=== PATIENT | female | born 1955 | race Asian ===

== ENCOUNTER 2018-09-02 14:30 | Inpatient (IN) | payer MEDICARE ==
[2018-09-02] MEDS ORDERED: ZEMURON IV ONE (14:57)
[2018-09-02] MEDS ORDERED: AMIDATE IV ONE (14:57)
[2018-09-02] MEDS ORDERED: VERSED IV PRN (15:01)
[2018-09-02] MEDS ORDERED: ARTIFICIAL TEARS OPHTH OINT OU PRN (15:01)
[2018-09-02] MEDS ORDERED: NACL 0.9% 500 ML 500 ML IV ONE (15:01)
[2018-09-02] MEDS ORDERED: VASELINE LIP THERAPY TP PRN (15:01)
[2018-09-02] MEDS ORDERED: SUBLIMAZE IV PRN (15:01)
--- NOTE | 2018-09-02 15:07 | Emergency Department Report ---
ED General Adult HPI - General Chief complaint: Cardiac Arrest/CPR Stated complaint: AMS Time Seen by Provider: 09/02/18 14:48 Source: EMS (verbal report received from EMS.ems notes not available at time of chart dictation), RN notes reviewed, old records reviewed Mode of arrival: Stretcher Limitations: Altered Mental Status, Physical Limitation - History of Present Illness Initial comments: This is a 63-year-old female, who is not known to this provider previously. The patient has a history of COPD, and was admitted to this hospital last month for multifactorial respiratory failure. Please see her discharge summary. She also has a history of schizophrenia, nicotine dependence. Today, the patient is brought to the hospital by emergency medical services for possible out of hospital cardiac arrest. Patient was at a psychiatric facility, where, as per EMS, psychiatric facility staff reported that the patient may have had a "cardiac event." Apparently, she became unresponsive and hypoxic, and was tachycardic. The patient reportedly received CPR, although it is not known if she lost pulses, and her rhythm at that time was not known. EMS was contacted, and they indicated to me that the patient had a normal fingerstick, and they placed the patient on a nonrebreather. The patient reportedly had pulses in the field. Upon arrival to the emergency room, the patient is breathing spontaneously but altered. She moves 4 extremities spontaneously and to painful stimuli. She is having shallow breathing, but does have a gag reflex. Her last known well time is not explicitly known. The patient is altered, and is not able to describe exacerbating or relieving factors, qualitative nature of her symptoms, aggravation, or radiation of her symptoms. -: unknown Quality: other Consistency: other Improves with: other Worsens with: other Associated Symptoms: other - Related Data Home Medications Medication Instructions Recorded Confirmed Last Taken ALBUTEROL Inhaler(NF) [VENTOLIN 2 puff IH QID 09/02/18 09/02/18 Unknown Inhaler(NF)] Benztropine [Cogentin] 1 mg PO Q4H PRN 09/02/18 09/02/18 Unknown Dextromethorphan/Benzocaine 1 each PO Q3H PRN MDD 8 doses 09/02/18 09/02/18 Unknown [Cepacol Sorethroat-Cough Sweetie] Fluticasone/Salmeterol [Advair 1 puff IH BID 09/02/18 09/02/18 Unknown Diskus 100-50 mcg] Insulin Regular, Human [Novolin R] See Protocol SUB-Q ACHS 09/02/18 09/02/18 Unknown Ipratropium/Albuterol Sulfate 1 ampul IH Q6HR 09/02/18 09/02/18 Unknown [DUONEB *Not for PRN Use*] LORazepam [Ativan INJ] 1 mg IM Q8H PRN MDD PRN SEVERE 09/02/18 09/02/18 Unknown AGITATION LORazepam [Ativan] 1 mg PO Q8H PRN 09/02/18 09/02/18 Unknown Loperamide [Imodium] 2 mg PO Q3HR PRN 09/02/18 09/02/18 Unknown Loratadine [Claritin] 10 mg PO DAILY 09/02/18 09/02/18 Unknown Mag Hydrox/Aluminum Hyd/Simeth 30 ml PO Q2H PRN MDD 3 doses 09/02/18 09/02/18 Unknown [Antacid Liquid] Magnesium Hydroxide [Milk of 30 ml PO QDAY PRN 09/02/18 09/02/18 Unknown Magnesia] Promethazine [Phenergan] 25 mg PO Q4H PRN 09/02/18 09/02/18 Unknown cloNIDine [Catapres] 0.1 mg PO Q8H PRN MDD for BP 09/02/18 09/02/18 Unknown >160/90 lamoTRIgine [LaMICtal] 25 mg PO BID 09/02/18 09/02/18 Unknown levETIRAcetam [Keppra TAB] 1,000 mg PO QDAY 09/02/18 09/02/18 Unknown predniSONE [Deltasone] 10 mg PO QDAY 09/02/18 09/02/18 Unknown risperiDONE [RisperDAL] 3 mg PO BID 09/02/18 09/02/18 Unknown traZODone [Desyrel] 50 mg PO QHS PRN 09/02/18 09/02/18 Unknown Allergies Allergy/AdvReac Type Severity Reaction Status Date / Time epinephrine Allergy Unknown Verified 01/28/18 11:04 haloperidol [From Haldol] Allergy Unknown Verified 01/28/18 11:04 quetiapine [From Seroquel] Allergy Unknown Verified 01/28/18 11:04 ziprasidone [From Geodon] Allergy Unknown Verified 01/28/18 11:04 ED Review of Systems ROS: Stated complaint: AMS Other details as noted in HPI Comment: Unobtainable due to pts medical conditions Neurological: confusion, other (ams) ED Past Medical Hx - Past Medical History Previous Medical History?: Yes Hx Psychiatric Treatment: Yes (Schizophrenia) Hx COPD: Yes - Surgical History Past Surgical History?: Yes Hx Cholecystectomy: Yes - Social History Smoking Status: Unknown if ever smoked - Medications Home Medications: Home Medications Medication Instructions Recorded Confirmed Last Taken Type ALBUTEROL Inhaler(NF) [VENTOLIN 2 puff IH QID 09/02/18 09/02/18 Unknown History Inhaler(NF)] Benztropine [Cogentin] 1 mg PO Q4H PRN 09/02/18 09/02/18 Unknown History Dextromethorphan/Benzocaine 1 each PO Q3H PRN MDD 8 doses 09/02/18 09/02/18 Unknown History [Cepacol Sorethroat-Cough Sweetie] Fluticasone/Salmeterol [Advair 1 puff IH BID 09/02/18 09/02/18 Unknown History Diskus 100-50 mcg] Insulin Regular, Human [Novolin R] See Protocol SUB-Q ACHS 09/02/18 09/02/18 Unknown History Ipratropium/Albuterol Sulfate 1 ampul IH Q6HR 09/02/18 09/02/18 Unknown History [DUONEB *Not for PRN Use*] LORazepam [Ativan INJ] 1 mg IM Q8H PRN MDD PRN SEVERE 09/02/18 09/02/18 Unknown History AGITATION LORazepam [Ativan] 1 mg PO Q8H PRN 09/02/18 09/02/18 Unknown History Loperamide [Imodium] 2 mg PO Q3HR PRN 09/02/18 09/02/18 Unknown History Loratadine [Claritin] 10 mg PO DAILY 09/02/18 09/02/18 Unknown History Mag Hydrox/Aluminum Hyd/Simeth 30 ml PO Q2H PRN MDD 3 doses 09/02/18 09/02/18 Unknown History [Antacid Liquid] Magnesium Hydroxide [Milk of 30 ml PO QDAY PRN 09/02/18 09/02/18 Unknown History Magnesia] Promethazine [Phenergan] 25 mg PO Q4H PRN 09/02/18 09/02/18 Unknown History cloNIDine [Catapres] 0.1 mg PO Q8H PRN MDD for BP 09/02/18 09/02/18 Unknown History >160/90 lamoTRIgine [LaMICtal] 25 mg PO BID 09/02/18 09/02/18 Unknown History levETIRAcetam [Keppra TAB] 1,000 mg PO QDAY 09/02/18 09/02/18 Unknown History predniSONE [Deltasone] 10 mg PO QDAY 09/02/18 09/02/18 Unknown History risperiDONE [RisperDAL] 3 mg PO BID 09/02/18 09/02/18 Unknown History traZODone [Desyrel] 50 mg PO QHS PRN 09/02/18 09/02/18 Unknown History ED Physical Exam - General Limitations: Altered Mental Status General appearance: obtunded - Head Head exam: Present: atraumatic, normocephalic - Eye Eye exam: Present: normal appearance, PERRL - ENT ENT exam: Present: normal orophraynx, mucous membranes moist, normal external ear exam - Neck Neck exam: Present: normal inspection, full ROM. Absent: tenderness, meningismus - Respiratory Respiratory exam: Present: decreased breath sounds. Absent: wheezes, rales, rhonchi, stridor - Cardiovascular Cardiovascular Exam: Present: normal rhythm, tachycardia, normal heart sounds. Absent: systolic murmur, diastolic murmur, rubs, gallop - GI/Abdominal GI/Abdominal exam: Present: soft. Absent: distended, tenderness, guarding, rebound, rigid, pulsatile mass - Extremities Exam Extremities exam: Present: normal inspection, other (2+ pulses noted in the bilateral upper, lower extremities. Compartments soft. No long bony tenderness. The pelvis is stable.). Absent: tenderness, pedal edema, calf tenderness - Back Exam Back exam: Present: normal inspection. Absent: tenderness, CVA tenderness (R), CVA tenderness (L), paraspinal tenderness, vertebral tenderness - Neurological Exam Neurological exam: Present: altered, other (patient's gag reflex is intact. Moves 4 extremities in response to noxious stimuli. When not stimulated, patient sleeping. Detailed neurologic examination not possible secondary to altered mental status.) - Psychiatric Psychiatric exam: Present: flat affect - Skin Skin exam: Present: warm, dry, intact, normal color. Absent: rash ED Course Vital Signs 09/02/18 09/02/18 09/02/18 14:52 15:00 15:05 Temperature 97.5 F L Pulse Rate 109 H 103 H Pulse Rate [ Bilateral] Pulse Rate [ Radial] Respiratory 12 21 Rate Respiratory Rate [Bilateral ] Blood Pressure 115/62 112/69 162/82 O2 Sat by Pulse 100 100 98 Oximetry 09/02/18 09/02/18 09/02/18 15:24 15:30 15:45 Temperature Pulse Rate 141 H 109 H Pulse Rate [ Bilateral] Pulse Rate [ Radial] Respiratory 16 28 H 28 H Rate Respiratory Rate [Bilateral ] Blood Pressure 168/117 144/88 O2 Sat by Pulse 99 97 100 Oximetry 09/02/18 09/02/18 09/02/18 16:00 16:15 16:45 Temperature Pulse Rate 112 H 110 H 87 Pulse Rate [ Bilateral] Pulse Rate [ Radial] Respiratory 28 H 20 28 H Rate Respiratory Rate [Bilateral ] Blood Pressure 144/96 162/94 144/96 O2 Sat by Pulse 96 98 93 Oximetry 09/02/18 09/02/18 09/02/18 17:00 17:15 17:30 Temperature Pulse Rate 76 72 73 Pulse Rate [ Bilateral] Pulse Rate [ Radial] Respiratory 28 H 28 H 28 H Rate Respiratory Rate [Bilateral ] Blood Pressure 105/75 121/80 103/70 O2 Sat by Pulse 99 99 Oximetry 09/02/18 09/02/18 09/02/18 18:30 18:45 19:00 Temperature Pulse Rate 70 72 75 Pulse Rate [ Bilateral] Pulse Rate [ Radial] Respiratory 28 H 28 H 28 H Rate Respiratory Rate [Bilateral ] Blood Pressure 106/67 94/62 85/54 O2 Sat by Pulse 100 98 96 Oximetry 09/02/18 09/02/18 09/02/18 19:15 19:30 19:45 Temperature Pulse Rate 76 77 72 Pulse Rate [ Bilateral] Pulse Rate [ Radial] Respiratory 28 H 28 H 28 H Rate Respiratory Rate [Bilateral ] Blood Pressure 83/56 89/61 85/54 O2 Sat by Pulse 97 94 95 Oximetry 09/02/18 09/02/18 09/02/18 20:00 20:09 20:15 Temperature Pulse Rate 73 54 L 45 L Pulse Rate [ Bilateral] Pulse Rate [ Radial] Respiratory 21 22 Rate Respiratory Rate [Bilateral ] Blood Pressure 109/83 118/75 118/75 O2 Sat by Pulse 100 100 Oximetry 09/02/18 09/02/18 09/02/18 20:30 20:31 20:45 Temperature Pulse Rate 54 L 46 L 50 L Pulse Rate [ Bilateral] Pulse Rate [ Radial] Respiratory 26 H 26 H Rate Respiratory Rate [Bilateral ] Blood Pressure 118/75 132/74 130/82 O2 Sat by Pulse 100 100 100 Oximetry 09/02/18 09/02/18 09/02/18 21:01 21:09 21:15 Temperature Pulse Rate 56 L 66 Pulse Rate [ 67 Bilateral] Pulse Rate [ Radial] Respiratory 28 H 28 H Rate Respiratory 20 Rate [Bilateral ] Blood Pressure 116/70 88/51 O2 Sat by Pulse 100 99 Oximetry 09/02/18 09/02/18 09/02/18 21:30 21:45 22:00 Temperature Pulse Rate 64 63 63 Pulse Rate [ Bilateral] Pulse Rate [ Radial] Respiratory 28 H 28 H 28 H Rate Respiratory Rate [Bilateral ] Blood Pressure 94/58 116/70 85/51 O2 Sat by Pulse 99 Oximetry 09/02/18 09/02/18 09/02/18 22:15 22:30 22:45 Temperature Pulse Rate 64 63 63 Pulse Rate [ Bilateral] Pulse Rate [ Radial] Respiratory 28 H 28 H 28 H Rate Respiratory Rate [Bilateral ] Blood Pressure 81/51 80/51 86/53 O2 Sat by Pulse 99 99 100 Oximetry 09/02/18 09/02/18 09/02/18 23:00 23:15 23:30 Temperature Pulse Rate 62 63 61 Pulse Rate [ Bilateral] Pulse Rate [ Radial] Respiratory 28 H 28 H 28 H Rate Respiratory Rate [Bilateral ] Blood Pressure 84/55 84/55 91/54 O2 Sat by Pulse 99 99 99 Oximetry 09/02/18 09/03/18 09/03/18 23:45 00:00 00:09 Temperature Pulse Rate 63 64 63 Pulse Rate [ Bilateral] Pulse Rate [ Radial] Respiratory 28 H 28 H 26 H Rate Respiratory Rate [Bilateral ] Blood Pressure 86/52 85/55 103/67 O2 Sat by Pulse 99 Oximetry 09/03/18 09/03/18 09/03/18 00:15 00:20 00:27 Temperature Pulse Rate 65 64 Pulse Rate [ Bilateral] Pulse Rate [ Radial] Respiratory 28 H Rate Respiratory Rate [Bilateral ] Blood Pressure 95/63 95/62 O2 Sat by Pulse 100 100 Oximetry 09/03/18 09/03/18 09/03/18 00:29 00:30 00:45 Temperature Pulse Rate 64 64 Pulse Rate [ Bilateral] Pulse Rate [ 65 Radial] Respiratory 22 28 H 28 H Rate Respiratory Rate [Bilateral ] Blood Pressure 108/66 96/64 O2 Sat by Pulse 99 98 Oximetry 09/03/18 09/03/18 09/03/18 01:00 01:15 01:30 Temperature Pulse Rate 66 67 69 Pulse Rate [ Bilateral] Pulse Rate [ Radial] Respiratory 13 22 25 H Rate Respiratory Rate [Bilateral ] Blood Pressure 92/61 92/61 94/63 O2 Sat by Pulse 98 99 98 Oximetry 09/03/18 09/03/18 09/03/18 01:45 02:00 02:15 Temperature Pulse Rate 70 70 69 Pulse Rate [ Bilateral] Pulse Rate [ Radial] Respiratory 28 H 28 H 19 Rate Respiratory Rate [Bilateral ] Blood Pressure 93/62 92/61 95/62 O2 Sat by Pulse 98 98 97 Oximetry 09/03/18 09/03/18 09/03/18 02:30 02:45 03:00 Temperature Pulse Rate 70 69 69 Pulse Rate [ Bilateral] Pulse Rate [ Radial] Respiratory 16 18 13 Rate Respiratory Rate [Bilateral ] Blood Pressure 93/62 91/58 89/61 O2 Sat by Pulse 99 98 98 Oximetry 09/03/18 09/03/18 09/03/18 03:15 03:30 03:45 Temperature Pulse Rate 71 72 72 Pulse Rate [ Bilateral] Pulse Rate [ Radial] Respiratory 8 L 9 L 12 Rate Respiratory Rate [Bilateral ] Blood Pressure 92/60 92/58 95/61 O2 Sat by Pulse 98 100 100 Oximetry 09/03/18 09/03/18 09/03/18 04:00 04:15 04:30 Temperature Pulse Rate 77 78 80 Pulse Rate [ Bilateral] Pulse Rate [ Radial] Respiratory 23 28 H 28 H Rate Respiratory Rate [Bilateral ] Blood Pressure 94/65 91/59 78/48 O2 Sat by Pulse 99 99 99 Oximetry 09/03/18 09/03/18 09/03/18 04:45 05:00 05:15 Temperature Pulse Rate 75 64 65 Pulse Rate [ Bilateral] Pulse Rate [ Radial] Respiratory 28 H 7 L 10 L Rate Respiratory Rate [Bilateral ] Blood Pressure 77/52 101/62 79/54 O2 Sat by Pulse 98 100 100 Oximetry 09/03/18 09/03/18 09/03/18 05:31 05:45 06:00 Temperature Pulse Rate 62 51 L 52 L Pulse Rate [ Bilateral] Pulse Rate [ Radial] Respiratory 18 11 L 9 L Rate Respiratory Rate [Bilateral ] Blood Pressure 103/66 118/69 137/80 O2 Sat by Pulse 100 100 100 Oximetry 09/03/18 09/03/18 09/03/18 06:15 06:30 06:45 Temperature Pulse Rate 48 L 43 L 42 L Pulse Rate [ Bilateral] Pulse Rate [ Radial] Respiratory 17 25 H 25 H Rate Respiratory Rate [Bilateral ] Blood Pressure 138/93 147/77 145/78 O2 Sat by Pulse 100 99 99 Oximetry 09/03/18 09/03/18 09/03/18 07:00 07:15 07:30 Temperature Pulse Rate 43 L 45 L 43 L Pulse Rate [ Bilateral] Pulse Rate [ Radial] Respiratory 25 H 25 H 25 H Rate Respiratory Rate [Bilateral ] Blood Pressure 140/78 126/88 140/84 O2 Sat by Pulse 98 98 97 Oximetry 09/03/18 09/03/18 09/03/18 07:45 08:00 08:14 Temperature Pulse Rate 43 L 44 L Pulse Rate [ 41 L Bilateral] Pulse Rate [ Radial] Respiratory 25 H 25 H Rate Respiratory 25 H Rate [Bilateral ] Blood Pressure 145/82 142/85 O2 Sat by Pulse 97 98 Oximetry - Reevaluation(s) Reevaluation #1: 09/02/18 16:48 Differential diagnosis, including but not limited to: Respiratory failure, pneumonia, pulmonary embolus, hypercarbia, intracranial injury, urinary tract infection Assessment and plan: 63-year-old female with reported cardiac event, reported cardiac arrest, now altered, found to be hypercarbic, with a respiratory acidosis, with an intact gag reflex. Given altered mental status, hypercarbia, hypoxemia on initial blood gas, not suitable for BiPAP therapy, and therefore intubated for airway protection. Patient will be ventilated on a lung protective strategy. Doubt infectious etiology at this time. CT scan of the brain, cervical spine, chest for PE rule out is pending at this time. Discussed with critical care physician, Dr. Lorena Girard, who agrees with plan for admission to the intensive care unit once initial diagnostics have resulted. Reevaluation #2: 09/02/18 16:51 Elevated d-dimer is reviewed and appreciated. We will withhold systemic anticoagulation pending CT scan of the brain, as intracranial hemorrhage has not been excluded as of yet. Reevaluation #3: 09/02/18 18:41 Dr Elina Hedrick to admit Reevaluation #4: 09/02/18 19:[address] scan of the brain is negative for acute disease. CT scan of the chest shows chronic emphysematous changes. No pulmonary embolism or pneumonia i s identified. Mild hypotension noted, IV fluids ordered. Likely secondary to sedation, probable dehydration. CT cervical spine negative for acute disease. 09/03/18 18:51 - EJ/Peripheral Line Neck L Time Out Performed: Yes Indications: multiple IV sites needed Skin Cleansed in Sterile Fashion: Yes Size: 20 Dressing Placed: tape Patient Tolerated Procedure: well Neck R Time Out Performed: Yes Indications: multiple IV sites needed Skin Cleansed in Sterile Fashion: Yes Size: 18 Dressing Placed: Tegaderm Patient Tolerated Procedure: well - Intubation Time Out Performed: Yes Sedative: Etomidate Mg Given: 20 Paralytic: Rocuronium Mg Given: 100 Laryngoscope: Lisa Size: 4 ET Tube Size: 7.5 Tube Secured Depth (cm): 22 Tube Secured Location: lips Tube Placement Confirmation: visualized tube passing t, equal breath sounds bilat, confirmation by capnometr Patient Tolerated Procedure: well Intubation Complications: none Additional Comments: Patient placed on nasal cannula at 15 L/m. Receives simultaneous [id number] ventilation. Towel rolls placed underneath the shoulders to align the ear to the sternal notch. Direct laryngoscopy performed, and a 7.5 endotracheal tube is inserted with 1 attempt, with no difficulty. The patient tolerated this procedure well. ED Medical Decision Making - Lab Data Result diagrams: 09/03/18 04:51 09/03/18 04:51 Vital Signs 09/02/18 09/02/18 09/02/18 14:52 15:05 15:24 Temperature 97.5 F L Pulse Rate 109 H Respiratory 12 16 Rate Blood Pressure 115/62 162/82 O2 Sat by Pulse 100 98 99 Oximetry - EKG Data -: EKG Interpreted by Hi EKG shows normal: sinus rhythm Rate: bradycardia - EKG Data 09/02/18 16:50 This is a sinus tachycardia, 101 bpm, normal axis, motion artifact, QTC 434 ms, his EKG is not consistent with ST elevation myocardial infarction. This EKG appears to be unchanged from prior EKG from 07/10/2018. - Radiology Data Radiology results: report reviewed, image reviewed Print Report Referring Physician: ANGELA BEST Patient Name: DAPHNE SOLARES Date of : 1955 Sex: Female Report Date: 2018-09-02 Report Status: Finalized Findings [facility] [address] [place] [address] XRay Report Signed Patient: DAPHNE SOLARES MR#: [id number] : 1955 Acct:[id number] Age/Sex: 63 / F ADM Date: 09/02/18 Loc: ED Attending Dr: Ordering Physician: ANGELA BEST MD Date of Service: 09/02/18 Procedure(s): XR chest 1V ap Accession Number(s): [id number] cc: ANGELA BEST MD Fluoro Time In Minutes: AP CHEST: HISTORY: Endotracheal tube placement An endotracheal tube has been inserted which terminates 3.5 cm superior to the caryn. The lungs are hyperinflated suggesting underlying emphysema. No evidence for pneumonia, large pleural effusion or pneumothorax. Heart size and pulmonary vessels are within normal limits. IMPRESSION: Adequate endotracheal tube placement. Emphysema. Transcribed By: TTR Dictated By: HU COLON JR, MD Electronically Authenticated By: HU COLON JR, MD Signed Date/Time: 09/02/18 1521 Critical Care Time: Yes Critical care time in (mins) excluding proc time.: 60 Critical care attestation.: If time is entered above; I have spent that time in minutes in the direct care of this critically ill patient, excluding procedure time. ED Disposition Clinical Impression: Acute respiratory failure with hypoxia and hypercapnia Disposition: OP ADMIT IP TO THIS HOSP Is pt being admited?: Yes Condition: Critical
--- NOTE | 2018-09-02 15:27 | XRay Report ---
AP CHEST: HISTORY: Endotracheal tube placement An endotracheal tube has been inserted which terminates 3.5 cm superior to the caryn. The lungs are hyperinflated suggesting underlying emphysema. No evidence for pneumonia, large pleural effusion or pneumothorax. Heart size and pulmonary vessels are within normal limits. IMPRESSION: Adequate endotracheal tube placement. Emphysema.
[2018-09-02 15:39] LABS: Hematocrit 43.3 % (30.3-42.9); Hemoglobin 14.5 gm/dl (10.1-14.3); Mean Corpuscular HGB Conc 33 % (30-34); Mean Corpuscular Volume 94 fl (79-97); Platelet Count 215 K/mm3 (140-440); Red Blood Count 4.62 M/mm3 (3.65-5.03); Red Cell Distribution Width 14.4 % (13.2-15.2)
[2018-09-02] MEDS: MIDAZOLAM 100 MG in NACL 0.9% 80 ML IV SCH (15:48)
[2018-09-02 15:49] LABS: INR 0.95 (0.87-1.13)
[2018-09-02 15:50] LABS: Partial Thromboplastin Time 22.3 Sec. (24.2-36.6)
[2018-09-02 16:31] LABS: Alanine Aminotransferase 18 units/L (7-56); Albumin 4.3 g/dL (3.9-5); BUN/Creatinine Ratio 27; Blood Urea Nitrogen 19 mg/dL (7-17); Calcium 10.1 mg/dL (8.4-10.2); Hemolysis Index 12
[2018-09-02 16:34] LABS: Basophils % (Manual) 0 % (0.0-1.8); Eosinophils % (Manual) 0 % (0.0-4.3); Myelocytes # (Manual) 0.1 K/mm3; Total Cells Counted 100
[2018-09-02 16:35] LABS: Anisocytosis 1+; Poikilocytosis Few
[2018-09-02] MEDS ORDERED: ATIVAN ONE (16:35)
[2018-09-02] MEDS ORDERED: SUBLIMAZE ONE (16:35)
[2018-09-02] MEDS: fentaNYL DRIP Premix 2,000 MCG/100 ML BAG IV SCH (16:35)
[2018-09-02] MEDS ORDERED: SUBLIMAZE IV ONE (16:48)
[2018-09-02] MEDS ORDERED: ATIVAN IV ONE ×2 (16:48→16:54)
[2018-09-02 17:40] LABS: Bilirubin,Urine NEG (Negative); Blood,Urine NEG (Negative); Color,Urine Yellow (Yellow); Mucus,Urine FEW /HPF; Urobilinogen,Urine < 2.0 mg/dL (<2.0)
--- NOTE | 2018-09-02 18:52 | Cat Scan Report ---
PROCEDURE: CT HEAD/BRAIN WO CON TECHNIQUE: Computerized tomography of the head was performed without contrast material. CT DOSE LENGTH PRODUCT: 920.5 mGycm HISTORY: ams COMPARISONS: None . FINDINGS: Skull and scalp: Normal . Paranasal sinuses: Normal . Ventricles and subarachnoid spaces: Normal . Cerebrum: No evidence of hemorrhage, acute infarction or mass . Cerebellum and brainstem: No evidence of hemorrhage, acute infarction or mass . IMPRESSION: Normal Examination . This document is electronically signed by Marcello Gallegos MD., September 02 2018 06:50:06 PM ET
--- NOTE | 2018-09-02 19:01 | Cat Scan Report ---
PROCEDURE: CT ANGIO CHEST TECHNIQUE: Computerized tomographic angiography of the chest was performed after the IV injection of iodinated nonionic contrast including image processing. The image data was postprocessed using 2-di mensional multiplanar reformatted (MPR) and 3-dimensional (MIP and/or volume rendered) techniques. Au tomated exposure control, adjustment of mA and/or kV according to patient size, or iterative reconstr uction dose optimization techniques were utilized. CT DOSE LENGTH PRODUCT: 660.1 mGycm HISTORY: resp failure COMPARISONS: None . FINDINGS: Heart and pericardium: There is a small pericardial effusion maximum 1.2 cm in diameter Thoracic aorta: Normal. Pulmonary vasculature: Normal. Lymph nodes: No enlarged thoracic lymph nodes. Lungs: There are some emphysematous changes present within the lungs bilaterally primarily at the api amy. There is an ET tube present tip above the caryn. Pleural space: Small bilateral pleural effusions present. Musculoskeletal structures: No significant abnormality. Upper abdominal structures: No significant abnormality. IMPRESSION: ET tube appears in satisfactory position Small bilateral pleural effusions Pericardial effusion Pulmonary emphysematous changes This document is electronically signed by Marcello Gallegos MD., September 02 2018 06:59:23 PM ET
[2018-09-02] MEDS ORDERED: NACL 0.9% 1000 ML 2,000 ML IV ONE (19:06)
[2018-09-02] MEDS ORDERED: NACL 0.9% 1000 ML 1,000 ML IV ONE (19:06)
[2018-09-02] MEDS ORDERED: MORPHINE IV PRN (19:48)
[2018-09-02] MEDS ORDERED: REGLAN IV PRN (19:48)
[2018-09-02] MEDS ORDERED: SODIUM CHLORIDE FLUSH SYRINGE 10 ML IV PRN (19:48)
[2018-09-02] MEDS ORDERED: TYLENOL PO PRN (19:48)
[2018-09-02] MEDS ORDERED: ZOFRAN IV PRN (19:48)
--- NOTE | 2018-09-02 19:48 | History and Physical Report ---
History of Present Illness Date of examination: 09/02/18 Date of admission: 09/02/18 18:41 History of present illness: - History of Present Illness Initial comments: This is a 63-year-old female, who is not known to this provider previously. The patient has a history of COPD, and was admitted to this hospital last month for multifactorial respiratory failure. Please see her discharge summary. She also has a history of schizophrenia, nicotine dependence. Today, the patient is brought to the hospital by emergency medical services for possible out of hospital cardiac arrest. Patient was at a psychiatric facility, where, as per EMS, psychiatric facility staff reported that the patient may have had a "cardiac event." Apparently, she became unresponsive and hypoxic, and was tachycardic. The patient reportedly received CPR, although it is not known if she lost pulses, and her rhythm at that time was not known. EMS was contacted, and they indicated to me that the patient had a normal fingerstick, and they placed the patient on a nonrebreather. The patient reportedly had pulses in the field. Upon arrival to the emergency room, the patient is breathing spontaneously but altered. She moves 4 extremities spontaneously and to painful stimuli. She is having shallow breathing, but does have a gag reflex. Her last known well time is not explicitly known. The patient is altered, and is not able to describe exacerbating or relieving factors, qualitative nature of her symptoms, aggravation, or radiation of her symptoms. -: unknown Quality: other Consistency: other Improves with: other Worsens with: other Associated Symptoms: other - Related Data Home Medications Medication Instructions Recorded Confirmed Last Taken ALBUTEROL Inhaler(NF) [VENTOLIN 2 puff IH QID 09/02/18 09/02/18 Unknown Inhaler(NF)] Benztropine [Cogentin] 1 mg PO Q4H PRN 09/02/18 09/02/18 Unknown Dextromethorphan/Benzocaine 1 each PO Q3H PRN MDD 8 doses 09/02/18 09/02/18 Unknown [Cepacol Sorethroat-Cough Sweetie] Fluticasone/Salmeterol [Advair 1 puff IH BID 09/02/18 09/02/18 Unknown Diskus 100-50 mcg] Insulin Regular, Human [Novolin R] See Protocol SUB-Q ACHS 09/02/18 09/02/18 Unknown Ipratropium/Albuterol Sulfate 1 ampul IH Q6HR 09/02/18 09/02/18 Unknown [DUONEB *Not for PRN Use*] LORazepam [Ativan INJ] 1 mg IM Q8H PRN MDD PRN SEVERE 09/02/18 09/02/18 Unknown AGITATION LORazepam [Ativan] 1 mg PO Q8H PRN 09/02/18 09/02/18 Unknown Loperamide [Imodium] 2 mg PO Q3HR PRN 09/02/18 09/02/18 Unknown Loratadine [Claritin] 10 mg PO DAILY 09/02/18 09/02/18 Unknown Mag Hydrox/Aluminum Hyd/Simeth 30 ml PO Q2H PRN MDD 3 doses 09/02/18 09/02/18 Unknown [Antacid Liquid] Magnesium Hydroxide [Milk of 30 ml PO QDAY PRN 09/02/18 09/02/18 Unknown Magnesia] Promethazine [Phenergan] 25 mg PO Q4H PRN 09/02/18 09/02/18 Unknown cloNIDine [Catapres] 0.1 mg PO Q8H PRN MDD for BP 09/02/18 09/02/18 Unknown >160/90 lamoTRIgine [LaMICtal] 25 mg PO BID 09/02/18 09/02/18 Unknown levETIRAcetam [Keppra TAB] 1,000 mg PO QDAY 09/02/18 09/02/18 Unknown predniSONE [Deltasone] 10 mg PO QDAY 09/02/18 09/02/18 Unknown risperiDONE [RisperDAL] 3 mg PO BID 09/02/18 09/02/18 Unknown traZODone [Desyrel] 50 mg PO QHS PRN 09/02/18 09/02/18 Unknown Allergies Allergy/AdvReac Type Severity Reaction Status Date / Time epinephrine Allergy Unknown Verified 01/28/18 11:04 haloperidol [From Haldol] Allergy Unknown Verified 01/28/18 11:04 quetiapine [From Seroquel] Allergy Unknown Verified 01/28/18 11:04 ziprasidone [From Geodon] Allergy Unknown Verified 01/28/18 11:04 ED Review of Systems ROS: Stated complaint: AMS Other details as noted in HPI Comment: Unobtainable due to pts medical conditions Neurological: confusion, other (ams) ED Past Medical Hx - Past Medical History Previous Medical History?: Yes Hx Psychiatric Treatment: Yes (Schizophrenia) Hx COPD: Yes - Surgical History Past Surgical History?: Yes Hx Cholecystectomy: Yes - Social History Smoking Status: Unknown if ever smoked - Medications Home Medications: Home Medications Medication Instructions Recorded Confirmed Last Taken Type ALBUTEROL Inhaler(NF) [VENTOLIN 2 puff IH QID 09/02/18 09/02/18 Unknown History Inhaler(NF)] Benztropine [Cogentin] 1 mg PO Q4H PRN 09/02/18 09/02/18 Unknown History Dextromethorphan/Benzocaine 1 each PO Q3H PRN MDD 8 doses 09/02/18 09/02/18 Unknown History [Cepacol Sorethroat-Cough Sweetie] Fluticasone/Salmeterol [Advair 1 puff IH BID 09/02/18 09/02/18 Unknown History Diskus 100-50 mcg] Insulin Regular, Human [Novolin R] See Protocol SUB-Q ACHS 09/02/18 09/02/18 Unknown History Ipratropium/Albuterol Sulfate 1 ampul IH Q6HR 09/02/18 09/02/18 Unknown History [DUONEB *Not for PRN Use*] LORazepam [Ativan INJ] 1 mg IM Q8H PRN MDD PRN SEVERE 09/02/18 09/02/18 Unknown History AGITATION LORazepam [Ativan] 1 mg PO Q8H PRN 09/02/18 09/02/18 Unknown History Loperamide [Imodium] 2 mg PO Q3HR PRN 09/02/18 09/02/18 Unknown History Loratadine [Claritin] 10 mg PO DAILY 09/02/18 09/02/18 Unknown History Mag Hydrox/Aluminum Hyd/Simeth 30 ml PO Q2H PRN MDD 3 doses 09/02/18 09/02/18 Unknown History [Antacid Liquid] Magnesium Hydroxide [Milk of 30 ml PO QDAY PRN 09/02/18 09/02/18 Unknown History Magnesia] Promethazine [Phenergan] 25 mg PO Q4H PRN 09/02/18 09/02/18 Unknown History cloNIDine [Catapres] 0.1 mg PO Q8H PRN MDD for BP 09/02/18 09/02/18 Unknown History >160/90 lamoTRIgine [LaMICtal] 25 mg PO BID 09/02/18 09/02/18 Unknown History levETIRAcetam [Keppra TAB] 1,000 mg PO QDAY 09/02/18 09/02/18 Unknown History predniSONE [Deltasone] 10 mg PO QDAY 09/02/18 09/02/18 Unknown History risperiDONE [RisperDAL] 3 mg PO BID 09/02/18 09/02/18 Unknown History traZODone [Desyrel] 50 mg PO QHS PRN 09/02/18 09/02/18 Unknown History Medications and Allergies Allergies Allergy/AdvReac Type Severity Reaction Status Date / Time epinephrine Allergy Unknown Verified 01/28/18 11:04 haloperidol [From Haldol] Allergy Unknown Verified 01/28/18 11:04 quetiapine [From Seroquel] Allergy Unknown Verified 01/28/18 11:04 ziprasidone [From Geodon] Allergy Unknown Verified 01/28/18 11:04 Home Medications Medication Instructions Recorded Confirmed Last Taken Type ALBUTEROL Inhaler(NF) [VENTOLIN 2 puff IH QID 09/02/18 09/02/18 Unknown History Inhaler(NF)] Benztropine [Cogentin] 1 mg PO Q4H PRN 09/02/18 09/02/18 Unknown History Dextromethorphan/Benzocaine 1 each PO Q3H PRN MDD 8 doses 09/02/18 09/02/18 Unknown History [Cepacol Sorethroat-Cough Sweetie] Fluticasone/Salmeterol [Advair 1 puff IH BID 09/02/18 09/02/18 Unknown History Diskus 100-50 mcg] Insulin Regular, Human [Novolin R] See Protocol SUB-Q ACHS 09/02/18 09/02/18 Unknown History Ipratropium/Albuterol Sulfate 1 ampul IH Q6HR 09/02/18 09/02/18 Unknown History [DUONEB *Not for PRN Use*] LORazepam [Ativan INJ] 1 mg IM Q8H PRN MDD PRN SEVERE 09/02/18 09/02/18 Unknown History AGITATION LORazepam [Ativan] 1 mg PO Q8H PRN 09/02/18 09/02/18 Unknown History Loperamide [Imodium] 2 mg PO Q3HR PRN 09/02/18 09/02/18 Unknown History Loratadine [Claritin] 10 mg PO DAILY 09/02/18 09/02/18 Unknown History Mag Hydrox/Aluminum Hyd/Simeth 30 ml PO Q2H PRN MDD 3 doses 09/02/18 09/02/18 Unknown History [Antacid Liquid] Magnesium Hydroxide [Milk of 30 ml PO QDAY PRN 09/02/18 09/02/18 Unknown History Magnesia] Promethazine [Phenergan] 25 mg PO Q4H PRN 09/02/18 09/02/18 Unknown History cloNIDine [Catapres] 0.1 mg PO Q8H PRN MDD for BP 09/02/18 09/02/18 Unknown History >160/90 lamoTRIgine [LaMICtal] 25 mg PO BID 09/02/18 09/02/18 Unknown History levETIRAcetam [Keppra TAB] 1,000 mg PO QDAY 09/02/18 09/02/18 Unknown History predniSONE [Deltasone] 10 mg PO QDAY 09/02/18 09/02/18 Unknown History risperiDONE [RisperDAL] 3 mg PO BID 09/02/18 09/02/18 Unknown History traZODone [Desyrel] 50 mg PO QHS PRN 09/02/18 09/02/18 Unknown History Active Meds: Active Medications Fentanyl (Sublimaze) 50 mcg IV Q10MIN PRN PRN Reason: ANALGESIA Hydrophilic Ointment (Vaseline Lip Therapy) 1 applic TP Q2HR PRN PRN Reason: Dry Lips Fentanyl Citrate (Fentanyl Drip Premix) 2,000 mcg in 100 mls @ 3.629 mls/hr IV TITR VANESSA; Protocol Last Admin: 09/02/18 16:35 Dose: 1 mcg/kg/hr, 3.629 mls/hr Documented by: Midazolam HCl 100 mg/ Sodium (Chloride) 100 mls @ 2 mls/hr IV TITR VANESSA; P rotocol Last Titration: 09/02/18 16:24 Dose: 4 mg/hr, 4 mls/hr Documented by: Sodium Chloride (Nacl 0.9% 1000 Ml) 1,000 mls @ 999 mls/hr IV BOLUS ONE Stop: 09/02/18 20:06 Midazolam HCl (Versed) 2 mg IV Q10MIN PRN PRN Reason: Sedation Multi-Ingred Cream/Lotion/Oil/Oint (Artificial Tears Ophth Oint) 1 applic OU Q4HR PRN PRN Reason: Dry Eye(s) Exam - Constitutional Vitals: Temp Pulse Resp BP Pulse Ox 97.5 F L 75 28 H 85/54 96 09/02/18 14:52 09/02/18 19:00 09/02/18 19:00 09/02/18 19:00 09/02/18 19:00 Results - Labs CBC & Chem 7: 09/02/18 15:21 09/02/18 15:21 Labs: Laboratory Last Values WBC 9.4 K/mm3 (4.5-11.0) 09/02/18 15:21 RBC 4.62 M/mm3 (3.65-5.03) 09/02/18 15:21 Hgb 14.5 gm/dl (10.1-14.3) H 09/02/18 15:21 Hct 43.3 % (30.3-42.9) H 09/02/18 15:21 MCV 94 fl (79-97) 09/02/18 15:21 MCH 31 pg (28-32) 09/02/18 15:21 MCHC 33 % (30-34) 09/02/18 15:21 RDW 14.4 % (13.2-15.2) 09/02/18 15:21 Plt Count 215 K/mm3 (140-440) 09/02/18 15:21 Add Manual Diff Complete 09/02/18 15:21 Total Counted 100 09/02/18 15:21 Seg Neutrophils % Legislative Correspondent 09/02/18 15:21 Seg Neuts % (Manual) 93.0 % (40.0-70.0) H 09/02/18 15:21 0 % 09/02/18 15:21 4.0 % (13.4-35.0) L 09/02/18 15:21 Reactive Lymphs % (Man) 0 % 09/02/18 15:21 1.0 % (0.0-7.3) 09/02/18 15:21 0 % (0.0-4.3) 09/02/18 15:21 0 % (0.0-1.8) 09/02/18 15:21 1.0 % 09/02/18 15:21 1.0 % 09/02/18 15:21 0 % 09/02/18 15:21 0 % 09/02/18 15:21 Nucleated RBC % Not Reportable 09/02/18 15:21 Seg Neutrophils # Man 8.7 K/mm3 (1.8-7.7) H 09/02/18 15:21 Band Neutrophils # 0.0 K/mm3 09/02/18 15:21 0.4 K/mm3 (1.2-5.4) L 09/02/18 15:21 Abs React Lymphs (Man) 0.0 K/mm3 09/02/18 15:21 0.1 K/mm3 (0.0-0.8) 09/02/18 15:21 0.0 K/mm3 (0.0-0.4) 09/02/18 15:21 0.0 K/mm3 (0.0-0.1) 09/02/18 15:21 0.1 K/mm3 09/02/18 15:21 0.1 K/mm3 09/02/18 15:21 0.0 K/mm3 09/02/18 15:21 Blast Cells # 0.0 K/mm3 09/02/18 15:21 WBC Morphology Not Reportable 09/02/18 15:21 Hypersegmented Neuts Not Reportable 09/02/18 15:21 Hyposegmented Neuts Not Reportable 09/02/18 15:21 Hypogranular Neuts Not Reportable 09/02/18 15:21 Not Reportable 09/02/18 15:21 Not Reportable 09/02/18 15:21 Not Reportable 09/02/18 15:21 Not Reportable 09/02/18 15:21 Not Reportable 09/02/18 15:21 Not Reportable 09/02/18 15:21 Appears normal 09/02/18 15:21 Not Reportable 09/02/18 15:21 Plt Clumps, EDTA Not Reportable 09/02/18 15:21 Not Reportable 09/02/18 15:21 Not Reportable 09/02/18 15:21 Not Reportable 09/02/18 15:21 Plt Morphology Comment Not Reportable 09/02/18 15:21 RBC Morphology Not Reportable 09/02/18 15:21 Dimorphic RBCs Not Reportable 09/02/18 15:21 Not Reportable 09/02/18 15:21 Not Reportable 09/02/18 15:21 Few 09/02/18 15:21 1+ 09/02/18 15:21 Not Reportable 09/02/18 15:21 Not Reportable 09/02/18 15:21 Not Reportable 09/02/18 15:21 Not Reportable 09/02/18 15:21 Not Reportable 09/02/18 15:21 Not Reportable 09/02/18 15:21 Not Reportable 09/02/18 15:21 Not Reportable 09/02/18 15:21 Not Reportable 09/02/18 15:21 Not Reportable 09/02/18 15:21 Not Reportable 09/02/18 15:21 Not Reportable 09/02/18 15:21 Not Reportable 09/02/18 15:21 Not Reportable 09/02/18 15:21 Not Reportable 09/02/18 15:21 Acanthocytes (Spur) Not Reportable 09/02/18 15:21 Rouleaux Not Reportable 09/02/18 15:21 Not Reportable 09/02/18 15:21 Not Reportable 09/02/18 15:21 Not Reportable 09/02/18 15:21 Not Reportable 09/02/18 15:21 Hem Pathologist Commnt No 09/02/18 15:21 PT 12.4 Sec. (12.2-14.9) 09/02/18 15:21 INR 0.95 (0.87-1.13) 09/02/18 15:21 APTT 22.3 Sec. (24.2-36.6) L 09/02/18 15:21 3805.72 ng/mlDDU (0-234) H 09/02/18 15:21 POC ABG pH 7.390 (7.35-7.45) 09/02/18 15:44 POC ABG pCO2 45.7 (35-45) H 09/02/18 15:44 POC ABG pO2 92 (80-105) 09/02/18 15:44 POC ABG HCO3 27.7 (22-26 mml/L) 09/02/18 15:44 POC ABG Total CO2 29 (23-27mmol/L) 09/02/18 15:44 POC ABG O2 Sat 97 09/02/18 15:44 POC ABG Base Excess 3 ((-2) - (+3)mmol/L) 09/02/18 15:44 35 % 09/02/18 15:44 Sodium 138 mmol/L (137-145) 09/02/18 15:21 Potassium 4.8 mmol/L (3.6-5.0) 09/02/18 15:21 Chloride 98.0 mmol/L (98-107) 09/02/18 15:21 Carbon Dioxide 26 mmol/L (22-30) 09/02/18 15:21 19 mmol/L 09/02/18 15:21 BUN 19 mg/dL (7-17) H 09/02/18 15:21 0.7 mg/dL (0.7-1.2) 09/02/18 15:21 Estimated GFR > 60 ml/min 09/02/18 15:21 27 % 09/02/18 15:21 Glucose 241 mg/dL (65-100) H 09/02/18 15:21 POC Glucose 238 (70-105) H 09/02/18 14:40 Lactic Acid 1.80 mmol/L (0.7-2.0) 09/02/18 15:21 Calcium 10.1 mg/dL (8.4-10.2) 09/02/18 15:21 Magnesium 2.10 mg/dL (1.7-2.3) 09/02/18 15:21 0.20 mg/dL (0.1-1.2) 09/02/18 15:21 AST 16 units/L (5-40) 09/02/18 15:21 ALT 18 units/L (7-56) 09/02/18 15:21 96 units/L (35-129) 09/02/18 15:21 < 0.010 ng/mL (0.00-0.029) 09/02/18 17:26 6.8 g/dL (6.3-8.2) 09/02/18 15:21 4.3 g/dL (3.9-5) 09/02/18 15:21 1.7 % 09/02/18 15:21 Yellow (Yellow) 09/02/18 17:16 Clear (Clear) 09/02/18 17:16 6.0 (5.0-7.0) 09/02/18 17:16 Ur Specific [place] 1.021 (1.003-1.030) 09/02/18 17:16 30 mg/dl mg/dL (Negative) 09/02/18 17:16 Neg mg/dL (Negative) 09/02/18 17:16 Neg mg/dL (Negative) 09/02/18 17:16 Neg (Negative) 09/02/18 17:16 Neg (Negative) 09/02/18 17:16 Neg (Negative) 09/02/18 17:16 < 2.0 mg/dL (<2.0) 09/02/18 17:16 Ur Leukocyte Esterase Neg (Negative) 09/02/18 17:16 1.0 /HPF (0.0-6.0) 09/02/18 17:16 2.0 /HPF (0.0-6.0) 09/02/18 17:16 U Epithel Cells (Auto) < 1.0 /HPF (0-13.0) 09/02/18 17:16 Few /HPF 09/02/18 17:16
[2018-09-02] MEDS ORDERED: PROVENTIL IH PRN (19:53)
[2018-09-02] MEDS ORDERED: PANCREAZE DR 10,500 UNIT FEEDTUBE PRN (19:55)
[2018-09-02] MEDS ORDERED: SIMPLE SYRUP FEEDTUBE PRN ×2 (19:55)
[2018-09-02] MEDS ORDERED: SODIUM BICARBONATE FEEDTUBE PRN (19:55)
[2018-09-02] MEDS ORDERED: DESYREL PO PRN (19:57)
[2018-09-02] MEDS ORDERED: CATAPRES PO PRN (19:57)
[2018-09-02] MEDS ORDERED: PHENERGAN PO PRN (19:57)
[2018-09-02] MEDS ORDERED: COGENTIN PO PRN (19:57)
[2018-09-02] MEDS ORDERED: ATIVAN IV PRN (19:57)
--- NOTE | 2018-09-02 20:01 | Cat Scan Report ---
PROCEDURE: CT CERVICAL SPINE WO CON TECHNIQUE: Computerized tomography of the cervical spine was performed from the skull base to T1 wit hout contrast material. CT DOSE LENGTH PRODUCT: 540.8 mGycm HISTORY: ams COMPARISONS: None . FINDINGS: There is multilevel facet joint arthropathy throughout the cervical spine. There is disc space narrowing C5-C6 and C6-C7. Spinous processes are intact Vertebral bodies demonstrate normal height and alignment.. IMPRESSION: No significant abnormality . This document is electronically signed by Marcello Gallegos MD., September 02 2018 07:58:59 PM ET
[2018-09-02] MEDS: DUONEB *Not for PRN Use IH SCH (20:58)
[2018-09-02] MEDS ORDERED: DUONEB *Not for PRN Use IH ONE (20:58)
[2018-09-02] MEDS: ROCEPHIN/NS 2 GM/100 ML 2 GM/100 ML BAG IV SCH (21:20)
[2018-09-02 21:37] LABS: Prealbumin 0.193 g/L (0.200-0.400)
[2018-09-02] MEDS: CLARITIN PO SCH (21:39)
[2018-09-02] MEDS ORDERED: HumaLOG SUB-Q SCH (22:00)
[2018-09-02] MEDS: ZITHROMAX 500 MG in NACL 0.9% 250ML 250 ML IV SCH (22:16)
[2018-09-03] MEDS ORDERED: fentaNYL DRIP Premix 2,000 MCG/100 ML BAG IV ONE (03:54)
--- NOTE | 2018-09-03 04:07 | XRay Report ---
PROCEDURE: XR CHEST 1V AP TECHNIQUE: Chest radiograph single view. HISTORY: follow up respiratory failure COMPARISONS: 07/12/2018 . FINDINGS: Heart: Normal. Mediastinum/Vessels: Normal. Lungs/Pleural space: The lungs appear emphysematous. There are no infiltrates or effusions.. Bony thorax: No acute osseous abnormality. Life support devices: The ET tube appears in good position above the caryn.. IMPRESSION: Emphysematous changes. No acute infiltrates or congestion.. This document is electronically signed by Renny Nixon MD., September 03 2018 04:05:36 AM ET
[2018-09-03] MEDS: fentaNYL DRIP Premix 2,000 MCG/100 ML BAG IV SCH (04:18)
[2018-09-03] MEDS: KEPPRA PO SCH ×3 (04:20→22:27)
[2018-09-03] MEDS: SODIUM CHLORIDE FLUSH SYRINGE 10 ML IV SCH ×3 (04:21→22:27)
[2018-09-03] MEDS: MIDAZOLAM 100 MG in NACL 0.9% 80 ML IV SCH ×2 (04:35→04:38)
--- NOTE | 2018-09-03 04:42 | XRay Report ---
PROCEDURE: XR ABDOMEN 1V AP TECHNIQUE: Abdominal radiograph, single view. HISTORY: og tube placement COMPARISONS: None . FINDINGS: Bowel gas pattern: Nonobstructive . Masses or calcifications: There are surgical clips in right upper quadrant. . Bony structures: No significant abnormality . Other: The tip of the NG tube is approximately 3 cm below the GE junction in the upper stomach. Shou ld be advanced at least 5 cm for better positioning. . IMPRESSION: Tip of the NG tube in the upper stomach. It should be advanced at least 5 cm for better positioning.. This document is electronically signed by Renny Nixon MD., September 03 2018 04:40:26 AM ET
[2018-09-03] MEDS ORDERED: NACL 0.9% 1000 ML 2,000 ML ONE (04:43)
[2018-09-03] MEDS: RisperDAL PO SCH ×3 (04:51→22:26)
[2018-09-03] MEDS: LaMICtal PO SCH ×3 (04:51→22:26)
[2018-09-03] MEDS ORDERED: NACL 0.9% 1000 ML 1,000 ML IV ONE (04:52)
[2018-09-03] MEDS ORDERED: PEPCID IV ONE (04:57)
[2018-09-03] MEDS ORDERED: SOLU-Medrol ONE (04:57)
[2018-09-03] MEDS ORDERED: NACL 0.9% 1000 ML 1,000 ML IV SCH ×3 (05:00→06:00)
[2018-09-03] MEDS: SOLU-Medrol IV SCH ×3 (05:00→14:00)
[2018-09-03] MEDS: PEPCID IV SCH ×3 (05:00→22:26)
[2018-09-03 05:14] LABS: Basophils % (Auto) 0.3 % (0.0-1.8); Eosinophils % (Auto) 0.6 % (0.0-4.3); Hemoglobin 11.4 gm/dl (10.1-14.3); Lymphocytes # (Auto) 1.5 K/mm3 (1.2-5.4); Lymphocytes % (Auto) 22.1 % (13.4-35.0); Mean Corpuscular HGB Conc 33 % (30-34); Mean Corpuscular Volume 95 fl (79-97); Monocytes # (Auto) 0.9 K/mm3 (0.0-0.8); Monocytes % (Auto) 13.2 % (0.0-7.3); Platelet Count 170 K/mm3 (140-440); Red Blood Count 3.69 M/mm3 (3.65-5.03); Red Cell Distribution Width 14.8 % (13.2-15.2)
[2018-09-03] MEDS: NACL 0.9% 1000 ML 1,000 ML IV SCH (05:27)
[2018-09-03 05:38] LABS: Alanine Aminotransferase 402 units/L (7-56); Albumin 2.9 g/dL (3.9-5); BUN/Creatinine Ratio 26; Blood Urea Nitrogen 18 mg/dL (7-17); Calcium 8.4 mg/dL (8.4-10.2); Hemolysis Index 31
--- NOTE | 2018-09-03 07:01 | Consultation ---
History of Present Illness Consult date: 09/03/18 Requesting physician: JESSICA VALENTINE Reason for consult: other (Acute hypoxemic respiratory failure, acute metabolic encephalopathy, ?cardiopulmoanry arrest) History of present illness: ED PHYSICIAN NOTES. This is a 63-year-old female, who has a history of COPD, and was admitted to this hospital last month for multifactorial respiratory failure. Please see her discharge summary. She also has a history of schizophrenia, nicotine dependence. The patient was brought to the hospital by emergency medical services for possible out of hospital cardiac arrest. Patient was at a psychiatric facility, where, as per EMS, psychiatric facility staff reported that the patient may have had a "cardiac event." Apparently, she became unresponsive and hypoxic, and was tachycardic. The patient reportedly received CPR, although it is not known if she lost pulses, and her rhythm at that time was not known. EMS was contacted, and they indicated to me that the patient had a normal fingerstick, and they placed the patient on a nonrebreather. The patient reportedly had pulses in the field. Upon arrival to the emergency room, the patient was breathing spontaneously but altered. She moves 4 extremities spontaneously and to painful stimuli. She is having shallow breathing, but does have a gag reflex. Her last known well time is not explicitly known. The patient is altered, and is not able to describe exacerbating or relieving factors, qualitative nature of her symptoms, aggravation, or radiation of her symptoms. 09/02/18 16:48 Differential diagnosis, including but not limited to: Respiratory failure, pneumonia, pulmonary embolus, hypercarbia, intracranial injury, urinary tract infection Assessment and plan: 63-year-old female with reported cardiac event, reported cardiac arrest, now altered, found to be hypercarbic, with a respiratory acidosis, with an intact gag reflex. Given altered mental status, hypercarbia, hypoxemia on initial blood gas, not suitable for BiPAP therapy, and therefore intubated for airway protection. Patient will be ventilated on a lung protective strategy. Doubt infectious etiology at this time. CT scan of the brain, cervical spine, chest for PE rule out is pending at this time. I have been consulted for critical care . At the time of my evaluation the patient was orally intubated, sedated and unable to give me any history. She was seen and examined. Vitals, labs, medications, chart and imaging were reviewed. Discussed with RT/RN and ED physician Medications and Allergies Allergies Allergy/AdvReac Type Severity Reaction Status Date / Time epinephrine Allergy Unknown Verified 01/28/18 11:04 haloperidol [From Haldol] Allergy Unknown Verified 01/28/18 11:04 quetiapine [From Seroquel] Allergy Unknown Verified 01/28/18 11:04 ziprasidone [From Geodon] Allergy Unknown Verified 01/28/18 11:04 Home Medications Medication Instructions Recorded Confirmed Last Taken Type ALBUTEROL Inhaler(NF) [VENTOLIN 2 puff IH QID 09/02/18 09/02/18 Unknown History Inhaler(NF)] Benztropine [Cogentin] 1 mg PO Q4H PRN 09/02/18 09/02/18 Unknown History Dextromethorphan/Benzocaine 1 each PO Q3H PRN MDD 8 doses 09/02/18 09/02/18 Unknown History [Cepacol Sorethroat-Cough Sweetie] Fluticasone/Salmeterol [Advair 1 puff IH BID 09/02/18 09/02/18 Unknown History Diskus 100-50 mcg] Insulin Regular, Human [Novolin R] See Protocol SUB-Q ACHS 09/02/18 09/02/18 Unknown History Ipratropium/Albuterol Sulfate 1 ampul IH Q6HR 09/02/18 09/02/18 Unknown History [DUONEB *Not for PRN Use*] LORazepam [Ativan INJ] 1 mg IM Q8H PRN MDD PRN SEVERE 09/02/18 09/02/18 Unknown History AGITATION LORazepam [Ativan] 1 mg PO Q8H PRN 09/02/18 09/02/18 Unknown History Loperamide [Imodium] 2 mg PO Q3HR PRN 09/02/18 09/02/18 Unknown History Loratadine [Claritin] 10 mg PO DAILY 09/02/18 09/02/18 Unknown History Mag Hydrox/Aluminum Hyd/Simeth 30 ml PO Q2H PRN MDD 3 doses 09/02/18 09/02/18 Unknown History [Antacid Liquid] Magnesium Hydroxide [Milk of 30 ml PO QDAY PRN 09/02/18 09/02/18 Unknown History Magnesia] Promethazine [Phenergan] 25 mg PO Q4H PRN 09/02/18 09/02/18 Unknown History cloNIDine [Catapres] 0.1 mg PO Q8H PRN MDD for BP 09/02/18 09/02/18 Unknown History >160/90 lamoTRIgine [LaMICtal] 25 mg PO BID 09/02/18 09/02/18 Unknown History levETIRAcetam [Keppra TAB] 1,000 mg PO QDAY 09/02/18 09/02/18 Unknown History predniSONE [Deltasone] 10 mg PO QDAY 09/02/18 09/02/18 Unknown History risperiDONE [RisperDAL] 3 mg PO BID 09/02/18 09/02/18 Unknown History traZODone [Desyrel] 50 mg PO QHS PRN 09/02/18 09/02/18 Unknown History Active Meds: Active Medications Acetaminophen (Tylenol) 650 mg PO Q4H PRN PRN Reason: Pain MILD(1-3)/Fever >100.5/RODRIGUEZ Albuterol (Proventil) 2.5 mg IH Q4HRT PRN PRN Reason: Shortness Of Breath Albuterol/Ipratropium (Duoneb *Not For Prn Use*) 1 ampul IH QIDRT [facility] Last Admin: 09/02/18 20:58 Dose: 1 ampul Documented by: Lipase/Protease/Amylase (Pancrejos[address]ito Dr 10,500 Unit) 1 each FEEDTUBE PRN PRN PRN Reason: For Clogged Feeding Tube Benztropine Mesylate (Cogentin) 1 mg PO Q4H PRN PRN Reason: Extrapyramidal Effects Clonidine HCl (Catapres) 0.1 mg PO Q8H PRN PRN Reason: Blood Pressure Famotidine (Pepcid) 20 mg IV BID [facility] Last Admin: 09/03/18 05:00 Dose: 20 mg Documented by: Fentanyl (Sublimaze) 50 mcg IV Q10MIN PRN PRN Reason: ANALGESIA Hydrophilic Ointment (Vaseline Lip Therapy) 1 applic TP Q2HR PRN PRN Reason: Dry Lips Fentanyl Citrate (Fentanyl Drip Premix) 2,000 mcg in 100 mls @ 3.629 mls/hr IV TITR [facility]; Protocol Last Admin: 09/03/18 04:18 Dose: 2 mcg/kg/hr, 7.258 mls/hr Documented by: Midazolam HCl 100 mg/ Sodium (Chloride) 100 mls @ 2 mls/hr IV TITR [facility]; Protocol Last Admin: 09/03/18 04:38 Dose: 3 mg/hr, 3 mls/hr Documented by: Sodium Chloride (Nacl 0.9% 1000 Ml) 1,000 mls @ 75 mls/hr IV DIRECT [facility] Last Admin: 09/03/18 05:27 Dose: 75 mls/hr Documented by: Azithromycin 500 mg/ Sodium (Chloride) 250 mls @ 250 mls/hr IV Q24H [facility] Last Admin: 09/02/18 22:16 Dose: 250 mls/hr Documented by: Ceftriaxone Sodium (Rocephin/Ns 2 Gm/100 Ml) 2 gm in 100 mls @ 200 mls/hr IV Q24H [facility]; Protocol Last Admin: 09/02/18 21:20 Dose: 200 mls/hr Documented by: Sodium Chloride (Nacl 0.9% 1000 Ml) 1,000 mls @ 75 mls/hr IV DIRECT [facility] Sodium Chloride (Nacl 0.9% 1000 Ml) 1,000 mls @ 0 mls/hr IV ONCE [facility] Stop: 09/04/18 06:01 Last Admin: 09/03/18 05:42 Dose: 999 mls/hr Documented by: Insulin Human Lispro (Humalog) 0 unit SUB-Q ACHS [facility]; Protocol Last Admin: 09/03/18 04:25 Dose: Not Given Documented by: Lamotrigine (Lamictal) 25 mg PO BID [facility] Last Admin: 09/03/18 04:51 Dose: 25 mg Documented by: Levetiracetam (Keppra) 750 mg PO Q12HR [facility] Last Admin: 09/03/18 04:20 Dose: Not Given Documented by: Loratadine (Claritin) 10 mg PO DAILY [facility] Last Admin: 09/02/18 21:39 Dose: Not Given Documented by: Lorazepam (Ativan) 1 mg IV Q8H PRN PRN Reason: Agitation Methylprednisolone Sodium Succinate (Solu-Medrol) 80 mg IV Q8HR [facility] Last Admin: 09/03/18 06:25 Dose: Not Given Documented by: Metoclopramide HCl (Reglan) 10 mg IV Q6H PRN PRN Reason: Nausea And Vomiting Midazolam HCl (Versed) 2 mg IV Q10MIN PRN PRN Reason: Sedation Morphine Sulfate (Morphine) 2 mg IV Q4H PRN PRN Reason: Pain, Moderate (4-6) Multi-Ingred Cream/Lotion/Oil/Oint (Artificial Tears Ophth Oint) 1 applic OU Q4HR PRN PRN Reason: Dry Eye(s) Ondansetron HCl (Zofran) 4 mg IV Q8H PRN PRN Reason: Nausea And Vomiting Promethazine HCl (Phenergan) 25 mg PO Q4H PRN PRN Reason: Nausea And Vomiting Risperidone (Risperdal) 3 mg PO BID [facility] Last Admin: 09/03/18 04:51 Dose: 3 mg Documented by: Simple Syrup (Simple Syrup) 15 ml FEEDTUBE PRN PRN PRN Reason: Hypoglycemia Simple Syrup (Simple Syrup) 30 ml FEEDTUBE PRN PRN PRN Reason: Hypoglycemia Sodium Bicarbonate (Sodium Bicarbonate) 325 mg FEEDTUBE PRN PRN PRN Reason: For Clogged Feeding Tube Sodium Chloride (Sodium Chloride Flush Syringe 10 Ml) 10 ml IV BID [facility] Last Admin: 09/03/18 04:21 Dose: 10 ml Documented by: Sodium Chloride (Sodium Chloride Flush Syringe 10 Ml) 10 ml IV PRN PRN PRN Reason: LINE FLUSH Trazodone HCl (Desyrel) 50 mg PO QHS PRN PRN Reason: Sleep Review of Systems ROS unobtainable: due to endotracheal tube, due to mental status Physical Examination Vital signs: Vital Signs Temp Pulse Resp BP Pulse Ox 97.5 F L 109 H 12 115/62 100 09/02/18 14:52 09/02/18 14:52 09/02/18 14:52 09/02/18 14:52 09/02/18 14:52 General appearance: no acute distress, other (orally intubated, ETT 7.5 at 22 cm at the lip. No patient ventilator dyssynchrony, Atraumatic, normocephalic) Eyes: non-icteric, other (SHAWN) ENT: oropharynx moist Neck: supple, no lymphadenopathy, no JVD Effort: normal Ascultation: Bilateral: diminished breath sounds, rhonchi Cardiovascular: regular rate and rhythm (with episodes of bradycardia), other (S1,S2, no murmurs, gallops or rubs) Gastrointestinal: normoactive bowel sounds, hypoactive bowel sounds, non-tender, non-distended, other (Bowel sounds in all 4 quadrants) Integumentary: normal Extremities: no cyanosis, no edema, pink and warm, pulses normal, no ischemia or petechiae unable to assess, other (withdraws to pain, all 4 extremities) other (unable to assess) Results - Laboratory Findings CBC and BMP: 09/03/18 04:51 09/03/18 04:51 ABG POC ABG pH 7.378 (7.35-7.45) 09/03/18 05:34 POC ABG pCO2 33.0 (35-45) L 09/03/18 05:34 POC ABG pO2 90 (80-105) 09/03/18 05:34 POC ABG HCO3 19.5 (22-26 mml/L) 09/03/18 05:34 POC ABG Total CO2 20 (23-27mmol/L) 09/03/18 05:34 POC ABG O2 Sat 97 09/03/18 05:34 PT/INR, D-dimer PT 12.4 Sec. (12.2-14.9) 09/02/18 15:21 INR 0.95 (0.87-1.13) 09/02/18 15:21 3805.72 ng/mlDDU (0-234) H 09/02/18 15:21 Abnormal lab findings: Abnormal Labs 09/02/18 09/02/18 09/02/18 14:40 14:53 15:21 Hgb Hct [place] % (Auto) [place] # Seg Neuts % (Manual) Lymphocytes % (Manual) Seg Neutrophils # Man Lymphocytes # (Manual) APTT D-Dimer POC ABG pH 7.259 L POC ABG pCO2 67.4 H POC ABG pO2 67 L Chloride Carbon Dioxide BUN 19 H Glucose 241 H POC Glucose 238 H Phosphorus Magnesium AST ALT Total Protein Albumin Prealbumin 09/02/18 09/02/18 09/02/18 15:21 15:21 15:44 Hgb 14.5 H Hct 43.3 H [place] % (Auto) [place] # Seg Neuts % (Manual) 93.0 H Lymphocytes % (Manual) 4.0 L Seg Neutrophils # Man 8.7 H Lymphocytes # (Manual) 0.4 L APTT 22.3 L D-Dimer 3805.72 H POC ABG pH POC ABG pCO2 45.7 H POC ABG pO2 Chloride Carbon Dioxide BUN Glucose POC Glucose Phosphorus Magnesium AST ALT Total Protein Albumin Prealbumin 09/02/18 09/03/18 09/03/18 20:34 04:30 04:51 Hgb Hct [place] % (Auto) 13.2 H [place] # 0.9 H Seg Neuts % (Manual) Lymphocytes % (Manual) Seg Neutrophils # Man Lymphocytes # (Manual) APTT D-Dimer POC ABG pH POC ABG pCO2 POC ABG pO2 Chloride Carbon Dioxide BUN Glucose POC Glucose 135 H Phosphorus 2.30 L Magnesium 1.60 L AST ALT Total Protein Albumin Prealbumin 0.193 L 09/03/18 09/03/18 04:51 05:34 Hgb Hct [place] % (Auto) [place] # Seg Neuts % (Manual) Lymphocytes % (Manual) Seg Neutrophils # Man Lymphocytes # (Manual) APTT D-Dimer POC ABG pH POC ABG pCO2 33.0 L POC ABG pO2 Chloride 109.0 H Carbon Dioxide 21 L BUN 18 H Glucose POC Glucose Phosphorus Magnesium AST 756 H ALT 402 H Total Protein 4.9 L D Albumin 2.9 L Prealbumin - Diagnostic Findings Chest x-ray: image reviewed (Hyperinflated, ETT in position) CT scan - chest: image reviewed (No acute pulmoanry emboli) Assessment and Plan Assessment and Plan -s/p ? Cardiopulmonary arrest with ROSC -Acute hypoxemic hypercapnic respiratory failure on MVS -AE-COPD -Acute metabolic-toxic encephalopathy -Tobacco use disorder -Schizophrenia -VAP bundle addressed -Lung protective strategies -Serial CXR and ABG -Supplemental oxygen to keep O2 sats 88-90% -Restrictive oxygen therapy -Bronchodilators -Chronic home medications for COPD -Short course of steroids -Accuchecks with glycemic control. Target blood glucose <180mg/dL -Agitation management -Titrate sedation to RAAS 0 to -1 -Prevention of delirium, maintenance of sleep-wake cycle -Empiric antibiotic therapy for HAP -Will de-escalate therapy based on microbiology/BETHANY/Cultures -VTE and Stress ulcer prophylaxis -Nicotine withdrawal precautions -Smoking cessation counselling CONDITION: CRITICAL PROGNOSIS: GUARDED CODE STATUS: FULL CODE Will hold sedation this morning, and re-evaluate the appropriateness for liberation from mechanical ventilatory support. Discussed extensively with RT and RN at the bedside, in the ED The high probability of a clinically significant, sudden or life-threatening deterioration of the [respiratory, cardiovascular neurology] system(s) required my full and direct attention, intervention and personal management. The aggregate critical care time was [45 ] minutes without overlap. Time includes spent on; [x] Data Review and interpretation [x] Patient assessment and monitoring of vital signs [x] Documentation [x] Medication orders and management
--- NOTE | 2018-09-03 07:16 | Event Note ---
Date: 09/02/18 See H/p in reports Acute resp failure COPD exacerbation
--- NOTE | 2018-09-03 07:31 | Progress Note ---
Assessment and Plan - Patient Problems (1) Acute respiratory failure with hypoxia and hypercapnia Current Visit: Yes Status: Acute Plan to address problem: Improved Extubated Cont Duonebs IV Solumedrol IV Abx (2) COPD with acute exacerbation Current Visit: Yes Status: Acute Plan to address problem: COnt Duoebs IV solumedrol andIV abx (3) HTN (hypertension) Current Visit: Yes Status: Chronic Qualifiers: Hypertension type: essential hypertension Qualified Code(s): I10 - Essential (primary) hypertension Plan to address problem: COnt antihypertensives (4) Seizure disorder Current Visit: Yes Status: Chronic Plan to address problem: Cont Keppra and Lamictal (5) Depression Current Visit: Yes Status: Chronic Qualifiers: Depression Type: unspecified Qualified Code(s): F32.9 - Major depressive disorder, single episode, unspecified Plan to address problem: Cont Trazodone and Risperidone (6) IDDM (insulin dependent diabetes mellitus) Current Visit: Yes Status: Chronic Plan to address problem: Cont Insulin a70/30 and coverage (7) Nicotine dependence Current Visit: Yes Status: Chronic Qualifiers: Nicotine product type: cigarettes Plan to address problem: Counseled about smoking cessation for 10 minutes Nicoderm patch initiated (8) DVT prophylaxis Current Visit: No Status: Acute Plan to address problem: On Lovenox and GI prophylaxis Subjective Date of service: 09/03/18 Principal diagnosis: Acute resp failure Interval history: Patient extubated today.Post extubation---Doing well.Alert and oriented.No fever or chills. Objective - Constitutional Vitals: Vital Signs - 12hr 09/02/18 09/02/18 09/02/18 19:45 20:00 20:09 Pulse Rate 72 73 54 L Pulse Rate [ Bilateral] Pulse Rate [ Radial] Respiratory 28 H 21 Rate Respiratory Rate [Bilateral ] Blood Pressure 85/54 109/83 118/75 O2 Sat by Pulse 95 100 Oximetry 09/02/18 09/02/18 09/02/18 20:15 20:30 20:31 Pulse Rate 45 L 54 L 46 L Pulse Rate [ Bilateral] Pulse Rate [ Radial] Respiratory 22 26 H Rate Respiratory Rate [Bilateral ] Blood Pressure 118/75 118/75 132/74 O2 Sat by Pulse 100 100 100 Oximetry 09/02/18 09/02/18 09/02/18 20:45 21:01 21:09 Pulse Rate 50 L 56 L Pulse Rate [ 67 Bilateral] Pulse Rate [ Radial] Respiratory 26 H 28 H Rate Respiratory 20 Rate [Bilateral ] Blood Pressure 130/82 116/70 O2 Sat by Pulse 100 100 Oximetry 09/02/18 09/02/18 09/02/18 21:15 21:30 21:45 Pulse Rate 66 64 63 Pulse Rate [ Bilateral] Pulse Rate [ Radial] Respiratory 28 H 28 H 28 H Rate Respiratory Rate [Bilateral ] Blood Pressure 88/51 94/58 116/70 O2 Sat by Pulse 99 99 Oximetry 09/02/18 09/02/18 09/02/18 22:00 22:15 22:30 Pulse Rate 63 64 63 Pulse Rate [ Bilateral] Pulse Rate [ Radial] Respiratory 28 H 28 H 28 H Rate Respiratory Rate [Bilateral ] Blood Pressure 85/51 81/51 80/51 O2 Sat by Pulse 99 99 Oximetry 09/02/18 09/02/18 09/02/18 22:45 23:00 23:15 Pulse Rate 63 62 63 Pulse Rate [ Bilateral] Pulse Rate [ Radial] Respiratory 28 H 28 H 28 H Rate Respiratory Rate [Bilateral ] Blood Pressure 86/53 84/55 84/55 O2 Sat by Pulse 100 99 99 Oximetry 09/02/18 09/02/18 09/03/18 23:30 23:45 00:00 Pulse Rate 61 63 64 Pulse Rate [ Bilateral] Pulse Rate [ Radial] Respiratory 28 H 28 H 28 H Rate Respiratory Rate [Bilateral ] Blood Pressure 91/54 86/52 85/55 O2 Sat by Pulse 99 99 Oximetry 09/03/18 09/03/18 09/03/18 00:09 00:15 00:20 Pulse Rate 63 65 64 Pulse Rate [ Bilateral] Pulse Rate [ Radial] Respiratory 26 H 28 H Rate Respiratory Rate [Bilateral ] Blood Pressure 103/67 95/63 95/62 O2 Sat by Pulse 100 Oximetry 09/03/18 09/03/18 09/03/18 00:27 00:29 00:30 Pulse Rate 64 Pulse Rate [ Bilateral] Pulse Rate [ 65 Radial] Respiratory 22 28 H Rate Respiratory Rate [Bilateral ] Blood Pressure 108/66 O2 Sat by Pulse 100 99 Oximetry 09/03/18 09/03/18 09/03/18 00:45 01:00 01:15 Pulse Rate 64 66 67 Pulse Rate [ Bilateral] Pulse Rate [ Radial] Respiratory 28 H 13 22 Rate Respiratory Rate [Bilateral ] Blood Pressure 96/64 92/61 92/61 O2 Sat by Pulse 98 98 99 Oximetry 09/03/18 09/03/18 09/03/18 01:30 01:45 02:00 Pulse Rate 69 70 70 Pulse Rate [ Bilateral] Pulse Rate [ Radial] Respiratory 25 H 28 H 28 H Rate Respiratory Rate [Bilateral ] Blood Pressure 94/63 93/62 92/61 O2 Sat by Pulse 98 98 98 Oximetry 09/03/18 09/03/18 09/03/18 02:15 02:30 02:45 Pulse Rate 69 70 69 Pulse Rate [ Bilateral] Pulse Rate [ Radial] Respiratory 19 16 18 Rate Respiratory Rate [Bilateral ] Blood Pressure 95/62 93/62 91/58 O2 Sat by Pulse 97 99 98 Oximetry 09/03/18 09/03/18 09/03/18 03:00 03:15 03:30 Pulse Rate 69 71 72 Pulse Rate [ Bilateral] Pulse Rate [ Radial] Respiratory 13 8 L 9 L Rate Respiratory Rate [Bilateral ] Blood Pressure 89/61 92/60 92/58 O2 Sat by Pulse 98 98 100 Oximetry 09/03/18 09/03/18 09/03/18 03:45 04:00 04:15 Pulse Rate 72 77 78 Pulse Rate [ Bilateral] Pulse Rate [ Radial] Respiratory 12 23 28 H Rate Respiratory Rate [Bilateral ] Blood Pressure 95/61 94/65 91/59 O2 Sat by Pulse 100 99 99 Oximetry 09/03/18 09/03/18 09/03/18 04:30 04:45 05:00 Pulse Rate 80 75 64 Pulse Rate [ Bilateral] Pulse Rate [ Radial] Respiratory 28 H 28 H 7 L Rate Respiratory Rate [Bilateral ] Blood Pressure 78/48 77/52 101/62 O2 Sat by Pulse 99 98 100 Oximetry 09/03/18 09/03/18 09/03/18 05:15 05:31 05:45 Pulse Rate 65 62 51 L Pulse Rate [ Bilateral] Pulse Rate [ Radial] Respiratory 10 L 18 11 L Rate Respiratory Rate [Bilateral ] Blood Pressure 79/54 103/66 118/69 O2 Sat by Pulse 100 100 100 Oximetry 09/03/18 09/03/18 06:00 06:15 Pulse Rate 52 L 48 L Pulse Rate [ Bilateral] Pulse Rate [ Radial] Respiratory 9 L 17 Rate Respiratory Rate [Bilateral ] Blood Pressure 137/80 138/93 O2 Sat by Pulse 100 100 Oximetry General appearance: Present: no acute distress, well-nourished - EENT Eyes: PERRL, EOM intact ENT: hearing intact, clear oral mucosa Ears: bilateral: normal - Neck Neck: supple, normal ROM - Respiratory Respiratory effort: normal Respiratory: bilateral: diminished, rhonchi, wheezing - Breasts Breasts: normal - Cardiovascular Heart rate: 78 Rhythm: regular Heart Sounds: Present: S1 & S2. Absent: gallop, rub Extremities: no ischemia, pulses intact, No edema, normal color, Full ROM - Gastrointestinal General gastrointestinal: Present: soft, non-tender, non-distended, normal bowel sounds Rectal Exam: deferred - Genitourinary Female genitourinary: normal - Integumentary Integumentary: clear, warm, dry - Musculoskeletal Musculoskeletal: 1, strength equal bilaterally - Neurologic Neurologic: CNII-XII intact, moves all extremities - Psychiatric Psychiatric: memory intact, appropriate mood/affect, intact judgment & insight - Labs CBC & Chem 7: 09/03/18 04:51 09/03/18 04:51 Labs: Abnormal lab results 09/02/18 09/02/18 09/02/18 Range/Units 14:40 14:53 15:21 Hgb (10.1-14.3) gm/dl Hct (30.3-42.9) % [place] % (Auto) (0.0-7.3) % [place] # (0.0-0.8) K/mm3 Seg Neuts % (Manual) (40.0-70.0) % Lymphocytes % (Manual) (13.4-35.0) % Seg Neutrophils # Man (1.8-7.7) K/mm3 Lymphocytes # (Manual) (1.2-5.4) K/mm3 APTT (24.2-36.6) Sec. D-Dimer (0-234) ng/mlDDU POC ABG pH 7.259 L (7.35-7.45) POC ABG pCO2 67.4 H (35-45) POC ABG pO2 67 L (80-105) Chloride (98-107) mmol/L Carbon Dioxide (22-30) mmol/L BUN 19 H (7-17) mg/dL Glucose 241 H (65-100) mg/dL POC Glucose 238 H (70-105) Phosphorus (2.5-4.5) mg/dL Magnesium (1.7-2.3) mg/dL AST (5-40) units/L ALT (7-56) units/L Total Protein (6.3-8.2) g/dL Albumin (3.9-5) g/dL Prealbumin (0.200-0.400) g/L 09/02/18 09/02/18 09/02/18 Range/Units 15:21 15:21 15:44 Hgb 14.5 H (10.1-14.3) gm/dl Hct 43.3 H (30.3-42.9) % [place] % (Auto) (0.0-7.3) % [place] # (0.0-0.8) K/mm3 Seg Neuts % (Manual) 93.0 H (40.0-70.0) % Lymphocytes % (Manual) 4.0 L (13.4-35.0) % Seg Neutrophils # Man 8.7 H (1.8-7.7) K/mm3 Lymphocytes # (Manual) 0.4 L (1.2-5.4) K/mm3 APTT 22.3 L (24.2-36.6) Sec. D-Dimer 3805.72 H (0-234) ng/mlDDU POC ABG pH (7.35-7.45) POC ABG pCO2 45.7 H (35-45) POC ABG pO2 (80-105) Chloride (98-107) mmol/L Carbon Dioxide (22-30) mmol/L BUN (7-17) mg/dL Glucose (65-100) mg/dL POC Glucose (70-105) Phosphorus (2.5-4.5) mg/dL Magnesium (1.7-2.3) mg/dL AST (5-40) units/L ALT (7-56) units/L Total Protein (6.3-8.2) g/dL Albumin (3.9-5) g/dL Prealbumin (0.200-0.400) g/L 09/02/18 09/03/18 09/03/18 Range/Units 20:34 04:30 04:51 Hgb (10.1-14.3) gm/dl Hct (30.3-42.9) % [place] % (Auto) 13.2 H (0.0-7.3) % [place] # 0.9 H (0.0-0.8) K/mm3 Seg Neuts % (Manual) (40.0-70.0) % Lymphocytes % (Manual) (13.4-35.0) % Seg Neutrophils # Man (1.8-7.7) K/mm3 Lymphocytes # (Manual) (1.2-5.4) K/mm3 APTT (24.2-36.6) Sec. D-Dimer (0-234) ng/mlDDU POC ABG pH (7.35-7.45) POC ABG pCO2 (35-45) POC ABG pO2 (80-105) Chloride (98-107) mmol/L Carbon Dioxide (22-30) mmol/L BUN (7-17) mg/dL Glucose (65-100) mg/dL POC Glucose 135 H (70-105) Phosphorus 2.30 L (2.5-4.5) mg/dL Magnesium 1.60 L (1.7-2.3) mg/dL AST (5-40) units/L ALT (7-56) units/L Total Protein (6.3-8.2) g/dL Albumin (3.9-5) g/dL Prealbumin 0.193 L (0.200-0.400) g/L 09/03/18 09/03/18 Range/Units 04:51 05:34 Hgb (10.1-14.3) gm/dl Hct (30.3-42.9) % [place] % (Auto) (0.0-7.3) % [place] # (0.0-0.8) K/mm3 Seg Neuts % (Manual) (40.0-70.0) % Lymphocytes % (Manual) (13.4-35.0) % Seg Neutrophils # Man (1.8-7.7) K/mm3 Lymphocytes # (Manual) (1.2-5.4) K/mm3 APTT (24.2-36.6) Sec. D-Dimer (0-234) ng/mlDDU POC ABG pH (7.35-7.45) POC ABG pCO2 33.0 L (35-45) POC ABG pO2 (80-105) Chloride 109.0 H (98-107) mmol/L Carbon Dioxide 21 L (22-30) mmol/L BUN 18 H (7-17) mg/dL Glucose (65-100) mg/dL POC Glucose (70-105) Phosphorus (2.5-4.5) mg/dL Magnesium (1.7-2.3) mg/dL AST 756 H (5-40) units/L ALT 402 H (7-56) units/L Total Protein 4.9 L D (6.3-8.2) g/dL Albumin 2.9 L (3.9-5) g/dL Prealbumin (0.200-0.400) g/L CT Chest ET tube appears in satisfactory position Small bilateral pleural effusions Pericardial effusion Pulmonary emphysematous changes - Imaging and cardiology CT scan - chest: report reviewed
[2018-09-03] MEDS ORDERED: fentaNYL DRIP Premix 2,000 MCG/100 ML BAG IV SCH ×3 (08:10→09:00)
[2018-09-03] MEDS ORDERED: DUONEB *Not for PRN Use IH ONE (08:13)
[2018-09-03] MEDS: DUONEB *Not for PRN Use IH SCH ×4 (08:13→19:41)
[2018-09-03] MEDS: CLARITIN PO SCH (10:00)
--- NOTE | 2018-09-03 11:26 | History and Physical Report ---
CHIEF COMPLAINT: Severe difficulty in breathing. Cardiac arrest. HISTORY OF PRESENT ILLNESS: A 63-year-old female with history of COPD and chronic respiratory failure, called EMS for possible outside hospital cardiac arrest. The patient does have psychiatric facility. EMS is not sure whether she had a cardiac arrest. The patient was unresponsive and hypoxic. CPR was done, but she did not lose pulse at any given time. The patient also had a normal fingerstick. The patient was hypoxic and lethargic. The patient was put on 100% nonrebreather and brought in. The patient was intubated in the Emergency Room. No fever or chills. The patient was hypercarbic with respiratory acidosis. Given the altered mental status and hypercarbia and hypoxemia in the initial blood gas, the patient was found to be not suitable for BiPAP therapy and was intubated for airway protection and ventilator support. PAST MEDICAL HISTORY: Significant for COPD, allergic rhinitis, generalized anxiety disorder, seizure disorder, and depression. PAST SURGICAL HISTORY: Cholecystectomy. SOCIAL HISTORY: Smoked 1 pack a day for a long time. FAMILY HISTORY: Hypertension. CURRENT MEDICATIONS: On the chart. PHYSICAL EXAMINATION: GENERAL: Elderly female, intubated, on vent. VITAL SIGNS: Blood pressure is 79/54 initially. Pulse is 65, respiratory rate was 10, sats are 100%. The initial sat was very low in the 70s and 80s. HEENT: Unremarkable. Intubated. NECK: Supple, no lymphadenopathy, no thyromegaly. LUNGS: Scattered rhonchi bilaterally. CARDIOVASCULAR: S1, S2 heard. No gallop, no murmur, no rub. Apical impulse in left fifth intercostal space and midclavicular line. ABDOMEN: Soft and benign. No hepatosplenomegaly. No guarding, no rigidity. Hernial orifices are normal. EXTREMITIES: Good pedal pulses. No pedal edema. CENTRAL NERVOUS SYSTEM: Decreased responsiveness. SKIN: Normal. LABORATORY DATA: Significant for white count of 9400, H and H is 14.5 and 43.3. D-dimer is 3805. ABG shows pH of 7.39, pCO2 of 45.7 slightly high, pO2 of 92, O2 sats are 97%. BUN and creatinine of 19 and 0.7, glucose is 241 and 238. Urine negative. Head CT was normal. Chest CTA, no pulmonary embolism. Small bilateral pleural effusions. Pericardial effusions. Chest x-ray shows emphysematous changes, no acute infiltrates or congestion. No significant abnormalities on the CT cervical spine. ASSESSMENT AND PLAN: 1. Acute respiratory failure with hypercarbia. The patient intubated and on ventilator. Vent support. Critical Care/Pulmonary consult requested. 2. Chronic obstructive pulmonary disease exacerbation. The patient initiated on IV Solu-Medrol, DuoNeb, and IV antibiotics in the form of Rocephin and azithromycin. 3. Seizure disorder. Continue Keppra and Lamictal. 4. Generalized anxiety disorder. Continue Ativan 1 mg q. 8 hours p.r.n. 5. Hypertension. Continue Catapres 0.1 q. 8 hours. 6. Depression and psychosis. Continue trazodone and Risperdal. 7. Deep venous thrombosis prophylaxis. The patient on Lovenox 40 mg subcutaneous daily. Critical care time is 40 minutes. JOB# [id number] GIA/EVY DONATO
[2018-09-03] MEDS: HumaLOG SUB-Q SCH ×2 (12:00→18:00)
[2018-09-03] MEDS ORDERED: IMODIUM PO PRN (20:20)
[2018-09-03] MEDS ORDERED: ATIVAN PO PRN (20:20)
[2018-09-03] MEDS: ZITHROMAX 500 MG in NACL 0.9% 250ML 250 ML IV SCH (20:33)
[2018-09-03] MEDS: ROCEPHIN/NS 2 GM/100 ML 2 GM/100 ML BAG IV SCH (20:37)
[2018-09-03] MEDS: HABITROL TD SCH (20:52)
[2018-09-03] MEDS ORDERED: PROAIR IH SCH (22:00)
[2018-09-03] MEDS ORDERED: NON-FORMULARY (Fluticasone/Salmeterol [Advair Diskus 100-50 Mcg] 1 PUFF) IH SCH (22:00)
[2018-09-03] MEDS: LOVENOX SUB-Q SCH (22:26)
[2018-09-04] MEDS: HumaLOG SUB-Q SCH ×5 (01:51→19:16)
[2018-09-04] MEDS: NACL 0.9% 1000 ML 1,000 ML IV SCH (02:00)
[2018-09-04] MEDS: SOLU-Medrol IV SCH ×4 (02:02→23:02)
--- NOTE | 2018-09-04 07:43 | Progress Note ---
Assessment and Plan -s/p ? Cardiopulmonary arrest with ROSC -Acute hypoxemic hypercapnic respiratory failure s/p extubation -AE-COPD -Acute metabolic-toxic encephalopathy -Tobacco use disorder -Schizophrenia -PRN CXR and ABG -Supplemental oxygen to keep O2 sats 88-90% -Restrictive oxygen therapy -Bronchodilators -Chronic home medications for COPD - Continue short course of steroids -Accuchecks with glycemic control. Target blood glucose <180mg/dL -Prevention of delirium, maintenance of sleep-wake cycle -Empiric antibiotic therapy for HAP -Will de-escalate therapy based on microbiology/BETHANY/Cultures -VTE and Stress ulcer prophylaxis -Nicotine withdrawal precautions -Smoking cessation counselling -Increase activity Stable fro transfer out of the ICU CONDITION: FAIR PROGNOSIS: FAIR CODE STATUS: FULL CODE Subjective Date of service: 09/04/18 Principal diagnosis: Acute resp failure Interval history: Patient is seen today for: ?cardiopulmonary arrest, acute hypoxemic respiratory failure, AE-COPD Seen and examined at bedside; 24hour events reviewed; nursing and respiratory care staff consulted; no adverse overnight events reported to me; extubated yesterday doing well. No acute overnight events, she is apparently directing her own care, denies any chest pain, no shortness of breath, no fevers, no chills, no abdominal pain, she wants to eat. Objective Vital Signs - 12hr 09/03/18 09/03/18 09/03/18 19:50 20:00 21:01 Temperature 98.5 F Pulse Rate 73 77 Pulse Rate [ 77 Bilateral] Pulse Rate [ 71 Radial] Respiratory 20 18 Rate Respiratory 22 Rate [Bilateral ] Blood Pressure 126/70 126/70 O2 Sat by Pulse 93 100 Oximetry 09/03/18 09/03/18 09/03/18 22:00 22:29 23:01 Temperature Pulse Rate 75 60 62 Pulse Rate [ Bilateral] Pulse Rate [ Radial] Respiratory 18 14 15 Rate Respiratory Rate [Bilateral ] Blood Pressure 130/67 130/67 130/67 O2 Sat by Pulse 96 100 98 Oximetry 09/04/18 09/04/18 09/04/18 00:00 01:00 02:00 Temperature 98.7 F Pulse Rate 69 61 65 Pulse Rate [ Bilateral] Pulse Rate [ 71 Radial] Respiratory 13 15 15 Rate Respiratory Rate [Bilateral ] Blood Pressure 111/60 111/60 111/60 O2 Sat by Pulse 97 98 96 Oximetry 09/04/18 09/04/18 09/04/18 03:01 04:00 04:31 Temperature 98.1 F Pulse Rate 64 61 Pulse Rate [ Bilateral] Pulse Rate [ 75 Radial] Respiratory 15 17 15 Rate Respiratory Rate [Bilateral ] Blood Pressure 101/55 119/62 O2 Sat by Pulse 97 92 99 Oximetry 09/04/18 09/04/18 05:01 06:00 Temperature Pulse Rate 62 80 Pulse Rate [ Bilateral] Pulse Rate [ Radial] Respiratory 14 18 Rate Respiratory Rate [Bilateral ] Blood Pressure 119/62 112/58 O2 Sat by Pulse 93 95 Oximetry Constitutional: no acute distress, other (Atraumatic, normocephalic) Eyes: non-icteric, other (SHAWN, EOMI) ENT: oropharynx moist Neck: supple, no lymphadenopathy, no JVD Effort: normal Ascultation: Bilateral: diminished breath sounds, rhonchi Cardiovascular: regular rate and rhythm (with episodes of bradycardia), other (S1,S2, no murmurs, gallops or rubs) Gastrointestinal: normoactive bowel sounds, hypoactive bowel sounds, non-tender, non-distended, other (Bowel sounds in all 4 quadrants) Integumentary: normal Extremities: no cyanosis, no edema, pink and warm, pulses normal, no ischemia or petechiae Neurologic: normal mental status, non-focal exam, pupils equal and round, motor strength normal and Psychiatric: mood appropriate, affect normal CBC and BMP: 09/03/18 04:51 09/03/18 04:51 ABG, PT/INR, D-dimer: ABG POC ABG pH 7.378 (7.35-7.45) 09/03/18 05:34 POC ABG pCO2 33.0 (35-45) L 09/03/18 05:34 POC ABG pO2 90 (80-105) 09/03/18 05:34 POC ABG HCO3 19.5 (22-26 mml/L) 09/03/18 05:34 POC ABG Total CO2 20 (23-27mmol/L) 09/03/18 05:34 POC ABG O2 Sat 97 09/03/18 05:34 PT/INR, D-dimer PT 12.4 Sec. (12.2-14.9) 09/02/18 15:21 INR 0.95 (0.87-1.13) 09/02/18 15:21 3805.72 ng/mlDDU (0-234) H 09/02/18 15:21 Abnormal lab findings: Abnormal Labs 09/02/18 09/02/18 09/02/18 14:40 14:53 15:21 Hgb Hct [place] % (Auto) [place] # Seg Neuts % (Manual) Lymphocytes % (Manual) Seg Neutrophils # Man Lymphocytes # (Manual) APTT D-Dimer POC ABG pH 7.259 L POC ABG pCO2 67.4 H POC ABG pO2 67 L Chloride Carbon Dioxide BUN 19 H Glucose 241 H POC Glucose 238 H Phosphorus Magnesium AST ALT Total Protein Albumin Prealbumin 09/02/18 09/02/18 09/02/18 15:21 15:21 15:44 Hgb 14.5 H Hct 43.3 H [place] % (Auto) [place] # Seg Neuts % (Manual) 93.0 H Lymphocytes % (Manual) 4.0 L Seg Neutrophils # Man 8.7 H Lymphocytes # (Manual) 0.4 L APTT 22.3 L D-Dimer 3805.72 H POC ABG pH POC ABG pCO2 45.7 H POC ABG pO2 Chloride Carbon Dioxide BUN Glucose POC Glucose Phosphorus Magnesium AST ALT Total Protein Albumin Prealbumin 09/02/18 09/03/18 09/03/18 20:34 04:30 04:51 Hgb Hct [place] % (Auto) 13.2 H [place] # 0.9 H Seg Neuts % (Manual) Lymphocytes % (Manual) Seg Neutrophils # Man Lymphocytes # (Manual) APTT D-Dimer POC ABG pH POC ABG pCO2 POC ABG pO2 Chloride Carbon Dioxide BUN Glucose POC Glucose 135 H Phosphorus 2.30 L Magnesium 1.60 L AST ALT Total Protein Albumin Prealbumin 0.193 L 09/03/18 09/03/18 09/03/18 04:51 05:34 11:37 Hgb Hct [place] % (Auto) [place] # Seg Neuts % (Manual) Lymphocytes % (Manual) Seg Neutrophils # Man Lymphocytes # (Manual) APTT D-Dimer POC ABG pH POC ABG pCO2 33.0 L POC ABG pO2 Chloride 109.0 H Carbon Dioxide 21 L BUN 18 H Glucose POC Glucose 138 H Phosphorus Magnesium AST 756 H ALT 402 H Total Protein 4.9 L D Albumin 2.9 L Prealbumin 09/03/18 18:04 Hgb Hct [place] % (Auto) [place] # Seg Neuts % (Manual) Lymphocytes % (Manual) Seg Neutrophils # Man Lymphocytes # (Manual) APTT D-Dimer POC ABG pH POC ABG pCO2 POC ABG pO2 Chloride Carbon Dioxide BUN Glucose POC Glucose 120 H Phosphorus Magnesium AST ALT Total Protein Albumin Prealbumin Chest x-ray: image reviewed Allied health notes reviewed: nursing
[2018-09-04] MEDS: PULMICORT IH SCH ×2 (08:28→20:40)
[2018-09-04] MEDS: BROVANA NEBU IH SCH ×2 (08:28→20:40)
[2018-09-04] MEDS: DUONEB *Not for PRN Use IH SCH (08:29)
[2018-09-04] MEDS: KEPPRA PO SCH ×2 (10:00→23:01)
[2018-09-04] MEDS: PEPCID IV SCH ×2 (10:00→23:03)
[2018-09-04] MEDS: CLARITIN PO SCH (10:00)
[2018-09-04] MEDS: SODIUM CHLORIDE FLUSH SYRINGE 10 ML IV SCH ×2 (10:00→23:03)
[2018-09-04] MEDS: RisperDAL PO SCH ×2 (10:00→23:03)
[2018-09-04] MEDS: HABITROL TD SCH (10:00)
[2018-09-04] MEDS: LaMICtal PO SCH ×2 (10:00→23:01)
--- NOTE | 2018-09-04 10:11 | Progress Note ---
Assessment and Plan - Patient Problems (1) Acute respiratory failure with hypoxia and hypercapnia Current Visit: Yes Status: Acute Plan to address problem: Improved Extubated Cont Duonebs IV Solumedrol IV Abx (2) COPD with acute exacerbation Current Visit: Yes Status: Acute Plan to address problem: COnt Duoebs IV solumedrol andIV abx (3) HTN (hypertension) Current Visit: Yes Status: Chronic Qualifiers: Hypertension type: essential hypertension Qualified Code(s): I10 - Essential (primary) hypertension Plan to address problem: COnt antihypertensives (4) Seizure disorder Current Visit: Yes Status: Chronic Plan to address problem: Cont Keppra and Lamictal (5) Depression Current Visit: Yes Status: Chronic Qualifiers: Depression Type: unspecified Qualified Code(s): F32.9 - Major depressive disorder, single episode, unspecified Plan to address problem: Cont Trazodone and Risperidone (6) IDDM (insulin dependent diabetes mellitus) Current Visit: Yes Status: Chronic Plan to address problem: Cont Insulin a70/30 and coverage (7) Nicotine dependence Current Visit: Yes Status: Chronic Qualifiers: Nicotine product type: cigarettes Plan to address problem: Counseled about smoking cessation for 10 minutes Nicoderm patch initiated (8) Malnutrition of moderate degree Current Visit: Yes Status: Chronic Plan to address problem: Dietitian consult (9) DVT prophylaxis Current Visit: No Status: Acute Plan to address problem: On Lovenox and GI prophylaxis Subjective Date of service: 09/04/18 Principal diagnosis: Acute resp failure Interval history: Patient extubated yesterday..Post extubation---Doing well.Alert and oriented.No fever or chills. Objective - Constitutional Vitals: Vital Signs - 12hr 09/03/18 09/03/18 09/04/18 22:29 23:01 00:00 Temperature 98.7 F Pulse Rate 60 62 69 Pulse Rate [ Bilateral] Pulse Rate [ 71 Radial] Respiratory 14 15 13 Rate Respiratory Rate [Bilateral ] Blood Pressure 130/67 130/67 111/60 O2 Sat by Pulse 100 98 97 Oximetry 09/04/18 09/04/18 09/04/18 01:00 02:00 03:01 Temperature Pulse Rate 61 65 64 Pulse Rate [ Bilateral] Pulse Rate [ Radial] Respiratory 15 15 15 Rate Respiratory Rate [Bilateral ] Blood Pressure 111/60 111/60 101/55 O2 Sat by Pulse 98 96 97 Oximetry 09/04/18 09/04/18 09/04/18 04:00 04:31 05:01 Temperature 98.1 F Pulse Rate 61 62 Pulse Rate [ Bilateral] Pulse Rate [ 75 Radial] Respiratory 17 15 14 Rate Respiratory Rate [Bilateral ] Blood Pressure 119/62 119/62 O2 Sat by Pulse 92 99 93 Oximetry 09/04/18 09/04/18 09/04/18 06:00 08:27 08:29 Temperature Pulse Rate 80 Pulse Rate [ 76 Bilateral] Pulse Rate [ Radial] Respiratory 18 Rate Respiratory 20 Rate [Bilateral ] Blood Pressure 112/58 O2 Sat by Pulse 95 94 Oximetry 09/04/18 08:50 Temperature Pulse Rate Pulse Rate [ 74 Bilateral] Pulse Rate [ Radial] Respiratory Rate Respiratory 20 Rate [Bilateral ] Blood Pressure O2 Sat by Pulse Oximetry General appearance: Present: no acute distress, well-nourished - EENT Eyes: PERRL, EOM intact ENT: hearing intact, clear oral mucosa Ears: bilateral: normal - Neck Neck: supple, normal ROM - Respiratory Respiratory effort: normal Respiratory: bilateral: CTA - Breasts Breasts: normal - Cardiovascular Heart rate: 78 Rhythm: regular Heart Sounds: Present: S1 & S2. Absent: gallop, rub Extremities: no ischemia, pulses intact, No edema, normal color, Full ROM - Gastrointestinal General gastrointestinal: Present: soft, non-tender, non-distended, normal bowel sounds - Genitourinary Female genitourinary: normal - Integumentary Integumentary: clear, warm, dry - Musculoskeletal Musculoskeletal: 1, strength equal bilaterally - Neurologic Neurologic: moves all extremities - Psychiatric Psychiatric: memory intact, appropriate mood/affect, intact judgment & insight - Allied health notes Allied health notes reviewed: nursing, case management - Labs CBC & Chem 7: 09/03/18 04:51 09/03/18 04:51 Labs: Abnormal lab results 09/03/18 09/03/18 Range/Units 11:37 18:04 POC Glucose 138 H 120 H (70-105)
[2018-09-04] MEDS: ROCEPHIN/NS 2 GM/100 ML 2 GM/100 ML BAG IV SCH (21:24)
[2018-09-04] MEDS: ZITHROMAX 500 MG in NACL 0.9% 250ML 250 ML IV SCH (23:00)
[2018-09-04] MEDS: LOVENOX SUB-Q SCH (23:01)
[2018-09-05] MEDS: HumaLOG SUB-Q SCH ×4 (01:30→18:09)
[2018-09-05] MEDS: SOLU-Medrol IV SCH ×3 (06:12→22:00)
--- NOTE | 2018-09-05 07:19 | Progress Note ---
Assessment and Plan - Patient Problems (1) Acute respiratory failure with hypoxia and hypercapnia Current Visit: Yes Status: Acute Plan to address problem: Improved Extubated Cont Duonebs IV Solumedrol IV Abx (2) COPD with acute exacerbation Current Visit: Yes Status: Acute Plan to address problem: COnt Duoebs IV solumedrol andIV abx (3) HTN (hypertension) Current Visit: Yes Status: Chronic Qualifiers: Hypertension type: essential hypertension Qualified Code(s): I10 - Essential (primary) hypertension Plan to address problem: COnt antihypertensives (4) Seizure disorder Current Visit: Yes Status: Chronic Plan to address problem: Cont Keppra and Lamictal (5) Depression Current Visit: Yes Status: Chronic Qualifiers: Depression Type: unspecified Qualified Code(s): F32.9 - Major depressive disorder, single episode, unspecified Plan to address problem: Cont Trazodone and Risperidone (6) IDDM (insulin dependent diabetes mellitus) Current Visit: Yes Status: Chronic Plan to address problem: Cont Insulin a70/30 and coverage (7) Nicotine dependence Current Visit: Yes Status: Chronic Qualifiers: Nicotine product type: cigarettes Plan to address problem: Counseled about smoking cessation for 10 minutes Nicoderm patch initiated (8) Malnutrition of moderate degree Current Visit: Yes Status: Chronic Plan to address problem: Dietitian consult (9) DVT prophylaxis Current Visit: No Status: Acute Plan to address problem: On Lovenox and GI prophylaxis Subjective Date of service: 09/05/18 Principal diagnosis: Acute resp failure Interval history: Patient extubated Day before...Post extubation---Doing well.Alert and oriented.No fever or chills.Improving.Not stable for discharge. Objective - Constitutional Vitals: Vital Signs - 12hr 09/04/18 09/04/18 09/04/18 20:04 20:45 20:55 Temperature 98.0 F Pulse Rate 92 H Pulse Rate [ Apical] Pulse Rate [ 83 83 Bilateral] Respiratory 18 Rate Respiratory 20 20 Rate [Bilateral ] Blood Pressure 176/89 O2 Sat by Pulse 93 97 Oximetry 09/04/18 09/04/18 09/04/18 22:50 23:02 23:57 Temperature 98.2 F Pulse Rate 92 H 83 Pulse Rate [ 92 H Apical] Pulse Rate [ Bilateral] Respiratory 18 18 Rate Respiratory Rate [Bilateral ] Blood Pressure 176/89 137/76 O2 Sat by Pulse 93 94 Oximetry 09/05/18 09/05/18 01:20 04:18 Temperature 98.1 F Pulse Rate 64 57 L Pulse Rate [ Apical] Pulse Rate [ Bilateral] Respiratory 18 Rate Respiratory Rate [Bilateral ] Blood Pressure 148/75 O2 Sat by Pulse 95 Oximetry General appearance: Present: mild distress, well-nourished - EENT Eyes: PERRL, EOM intact ENT: hearing intact, clear oral mucosa Ears: bilateral: normal - Neck Neck: supple, normal ROM - Respiratory Respiratory effort: normal Respiratory: bilateral: CTA - Breasts Breasts: normal - Cardiovascular Rhythm: regular Heart Sounds: Present: S1 & S2. Absent: gallop, rub Extremities: pulses intact, No edema, normal color, Full ROM - Gastrointestinal General gastrointestinal: Present: soft, non-tender, non-distended, normal bowel sounds - Genitourinary Female genitourinary: normal - Integumentary Integumentary: clear, warm, dry - Musculoskeletal Musculoskeletal: 1, strength equal bilaterally - Neurologic Neurologic: moves all extremities - Psychiatric Psychiatric: memory intact, appropriate mood/affect, intact judgment & insight - Labs CBC & Chem 7: 09/05/18 07:50 09/05/18 07:50 Labs: Abnormal lab results 09/05/18 09/05/18 Range/Units 01:28 06:17 POC Glucose 170 H 134 H (70-105)
[2018-09-05] MEDS: PULMICORT IH SCH ×2 (07:31→21:53)
[2018-09-05] MEDS: BROVANA NEBU IH SCH ×2 (07:31→21:53)
[2018-09-05 08:07] LABS: Basophils % (Auto) 0.2 % (0.0-1.8); Hematocrit 37.8 % (30.3-42.9); Hemoglobin 12.7 gm/dl (10.1-14.3); Lymphocytes # (Auto) 0.6 K/mm3 (1.2-5.4); Lymphocytes % (Auto) 8.1 % (13.4-35.0); Mean Corpuscular HGB Conc 34 % (30-34); Mean Corpuscular Volume 93 fl (79-97); Monocytes # (Auto) 0.2 K/mm3 (0.0-0.8); Monocytes % (Auto) 3.2 % (0.0-7.3); Platelet Count 171 K/mm3 (140-440); Red Blood Count 4.09 M/mm3 (3.65-5.03); Red Cell Distribution Width 14.6 % (13.2-15.2)
[2018-09-05 08:31] LABS: Alanine Aminotransferase 243 units/L (7-56); Albumin 3.7 g/dL (3.9-5); BUN/Creatinine Ratio 23; Blood Urea Nitrogen 14 mg/dL (7-17); Calcium 9.3 mg/dL (8.4-10.2); Hemolysis Index 10
[2018-09-05] MEDS: HABITROL TD SCH (10:03)
[2018-09-05] MEDS: PEPCID IV SCH (10:03)
[2018-09-05] MEDS: KEPPRA PO SCH ×2 (10:04→21:59)
[2018-09-05] MEDS: LaMICtal PO SCH ×2 (10:04→22:03)
[2018-09-05] MEDS: RisperDAL PO SCH ×2 (10:04→22:04)
[2018-09-05] MEDS: CLARITIN PO SCH (10:04)
[2018-09-05] MEDS: SODIUM CHLORIDE FLUSH SYRINGE 10 ML IV SCH ×2 (10:04→22:00)
--- NOTE | 2018-09-05 15:05 | Progress Note ---
Assessment and Plan s/p Cardiopulmonary arrest with ROSC Acute hypoxemic hypercapnic respiratory failure s/p extubation AE-COPD Acute metabolic-toxic encephalopathy Tobacco use disorder Schizophrenia - PRN CXR and ABG at this point - wean supplemental oxygen to keep O2 sats 88-90% - continue restrictive oxygen therapy - continue bronchodilators with pulmonary hygiene per RT - Chronic home medications for COPD - Continue short course of steroids with slow taper - Accuchecks with glycemic control. Target blood glucose <180mg/dL - Prevention of delirium, maintenance of sleep-wake cycle - Empiric antibiotic therapy for HAP - Will de-escalate therapy based on microbiology/BETHANY/Cultures - VTE and Stress ulcer prophylaxis - Nicotine withdrawal precautions - Smoking cessation counselling done at bedside - Increase activity ... re-evaluate in am & prn CONDITION: FAIR PROGNOSIS: FAIR CODE STATUS: FULL CODE Subjective Date of service: 09/05/18 Principal diagnosis: s/p Cardiac arrest with ROSC; Ac. hypoxemic hypercapnic resp failure; COPD Interval history: Patient is seen today for: s/p Cardiopulmonary arrest with ROSC; Acute hypoxemic hypercapnic respiratory failure s/p extubation; AE-COPD; Acute metabolic-toxic encephalopathy; Tobacco use disorder; Schizophrenia Seen and examined at bedside; 24hour events reviewed; nursing and respiratory care staff consulted; no adverse overnight events reported to me; resting in bed; remains on supplemental oxygen; feels better; denies acute chest pains or palpitations; No N/V/F/C Objective Vital Signs - 12hr 09/05/18 09/05/18 09/05/18 04:18 07:32 07:34 Temperature 98.1 F Pulse Rate 57 L Pulse Rate [ 84 Bilateral] Respiratory 18 Rate Respiratory 18 Rate [Bilateral ] Blood Pressure 148/75 O2 Sat by Pulse 95 96 Oximetry 09/05/18 09/05/18 08:09 10:00 Temperature 97.6 F Pulse Rate 72 91 H Pulse Rate [ Bilateral] Respiratory 18 Rate Respiratory Rate [Bilateral ] Blood Pressure 140/74 O2 Sat by Pulse 85 Oximetry Constitutional: no acute distress, other (Atraumatic, normocephalic) Eyes: non-icteric, other (SHAWN, EOMI) ENT: oropharynx moist Neck: supple, no lymphadenopathy, no JVD Effort: mildly labored Ascultation: Bilateral: diminished breath sounds, rhonchi Percussion: Bilateral: not dull Cardiovascular: regular rate and rhythm (with episodes of bradycardia), other (S1,S2, no murmurs, gallops or rubs) Gastrointestinal: normoactive bowel sounds, hypoactive bowel sounds, non-tender, non-distended, other (Bowel sounds in all 4 quadrants) Integumentary: normal Extremities: no cyanosis, no edema, pink and warm, pulses normal, no ischemia or petechiae Neurologic: normal mental status, non-focal exam, pupils equal and round, motor strength normal and Psychiatric: mood appropriate, affect normal CBC and BMP: 09/05/18 07:50 09/05/18 07:50 ABG, PT/INR, D-dimer: ABG POC ABG pH 7.378 (7.35-7.45) 09/03/18 05:34 POC ABG pCO2 33.0 (35-45) L 09/03/18 05:34 POC ABG pO2 90 (80-105) 09/03/18 05:34 POC ABG HCO3 19.5 (22-26 mml/L) 09/03/18 05:34 POC ABG Total CO2 20 (23-27mmol/L) 09/03/18 05:34 POC ABG O2 Sat 97 09/03/18 05:34 PT/INR, D-dimer PT 12.4 Sec. (12.2-14.9) 09/02/18 15:21 INR 0.95 (0.87-1.13) 09/02/18 15:21 3805.72 ng/mlDDU (0-234) H 09/02/18 15:21 Abnormal lab findings: Abnormal Labs 09/02/18 09/02/18 09/02/18 14:40 14:53 15:21 Hgb Hct Lymph % (Auto) [place] % (Auto) Lymph # [place] # Seg Neutrophils % Seg Neuts % (Manual) Lymphocytes % (Manual) Seg Neutrophils # Man Lymphocytes # (Manual) APTT D-Dimer POC ABG pH 7.259 L POC ABG pCO2 67.4 H POC ABG pO2 67 L Chloride Carbon Dioxide BUN 19 H Creatinine Glucose 241 H POC Glucose 238 H Phosphorus Magnesium AST ALT Total Protein Albumin Prealbumin 09/02/18 09/02/18 09/02/18 15:21 15:21 15:44 Hgb 14.5 H Hct 43.3 H Lymph % (Auto) [place] % (Auto) Lymph # [place] # Seg Neutrophils % Seg Neuts % (Manual) 93.0 H Lymphocytes % (Manual) 4.0 L Seg Neutrophils # Man 8.7 H Lymphocytes # (Manual) 0.4 L APTT 22.3 L D-Dimer 3805.72 H POC ABG pH POC ABG pCO2 45.7 H POC ABG pO2 Chloride Carbon Dioxide BUN Creatinine Glucose POC Glucose Phosphorus Magnesium AST ALT Total Protein Albumin Prealbumin 09/02/18 09/03/18 09/03/18 20:34 04:30 04:51 Hgb Hct Lymph % (Auto) [place] % (Auto) 13.2 H Lymph # [place] # 0.9 H Seg Neutrophils % Seg Neuts % (Manual) Lymphocytes % (Manual) Seg Neutrophils # Man Lymphocytes # (Manual) APTT D-Dimer POC ABG pH POC ABG pCO2 POC ABG pO2 Chloride Carbon Dioxide BUN Creatinine Glucose POC Glucose 135 H Phosphorus 2.30 L Magnesium 1.60 L AST ALT Total Protein Albumin Prealbumin 0.193 L 09/03/18 09/03/18 09/03/18 04:51 05:34 11:37 Hgb Hct Lymph % (Auto) [place] % (Auto) Lymph # [place] # Seg Neutrophils % Seg Neuts % (Manual) Lymphocytes % (Manual) Seg Neutrophils # Man Lymphocytes # (Manual) APTT D-Dimer POC ABG pH POC ABG pCO2 33.0 L POC ABG pO2 Chloride 109.0 H Carbon Dioxide 21 L BUN 18 H Creatinine Glucose POC Glucose 138 H Phosphorus Magnesium AST 756 H ALT 402 H Total Protein 4.9 L D Albumin 2.9 L Prealbumin 09/03/18 09/05/18 09/05/18 18:04 01:28 06:17 Hgb Hct Lymph % (Auto) [place] % (Auto) Lymph # [place] # Seg Neutrophils % Seg Neuts % (Manual) Lymphocytes % (Manual) Seg Neutrophils # Man Lymphocytes # (Manual) APTT D-Dimer POC ABG pH POC ABG pCO2 POC ABG pO2 Chloride Carbon Dioxide BUN Creatinine Glucose POC Glucose 120 H 170 H 134 H Phosphorus Magnesium AST ALT Total Protein Albumin Prealbumin 09/05/18 09/05/18 09/05/18 07:50 07:50 12:20 Hgb Hct Lymph % (Auto) 8.1 L [place] % (Auto) Lymph # 0.6 L [place] # Seg Neutrophils % 88.5 H Seg Neuts % (Manual) Lymphocytes % (Manual) Seg Neutrophils # Man Lymphocytes # (Manual) APTT D-Dimer POC ABG pH POC ABG pCO2 POC ABG pO2 Chloride Carbon Dioxide BUN Creatinine 0.6 L Glucose 137 H POC Glucose 157 H Phosphorus Magnesium AST 49 H ALT 243 H Total Protein 5.6 L Albumin 3.7 L Prealbumin Chest x-ray: image reviewed (hyperinflation; No acute process) Allied health notes reviewed: nursing
--- NOTE | 2018-09-05 17:28 | Progress Note ---
Assessment and Plan - Patient Problems (1) Acute respiratory failure with hypoxia and hypercapnia Current Visit: Yes Status: Acute Plan to address problem: Improved Extubated Cont Duonebs IV Solumedrol IV Abx (2) COPD with acute exacerbation Current Visit: Yes Status: Acute Plan to address problem: COnt Duoebs IV solumedrol andIV abx (3) HTN (hypertension) Current Visit: Yes Status: Chronic Qualifiers: Hypertension type: essential hypertension Qualified Code(s): I10 - Essential (primary) hypertension Plan to address problem: COnt antihypertensives (4) Seizure disorder Current Visit: Yes Status: Chronic Plan to address problem: Cont Keppra and Lamictal (5) Depression Current Visit: Yes Status: Chronic Qualifiers: Depression Type: unspecified Qualified Code(s): F32.9 - Major depressive disorder, single episode, unspecified Plan to address problem: Cont Trazodone and Risperidone (6) IDDM (insulin dependent diabetes mellitus) Current Visit: Yes Status: Chronic Plan to address problem: Cont Insulin a70/30 and coverage (7) Nicotine dependence Current Visit: Yes Status: Chronic Qualifiers: Nicotine product type: cigarettes Plan to address problem: Counseled about smoking cessation for 10 minutes Nicoderm patch initiated (8) Malnutrition of moderate degree Current Visit: Yes Status: Chronic Plan to address problem: Dietitian consult (9) DVT prophylaxis Current Visit: No Status: Acute Plan to address problem: On Lovenox and GI prophylaxis (10) Discharge planning issues Current Visit: Yes Status: Acute Plan to address problem: DOing better,Sitting in chair,More coherent May go Home tomorrow May need Home O2 Room air ABG in AM Subjective Date of service: 09/05/18 Principal diagnosis: s/p Cardiac arrest with ROSC; Ac. hypoxemic hypercapnic resp failure; COPD Interval history: Patient extubated Day before...Post extubation---Doing well.Alert and oriented.No fever or chills.Improving.Not stable for discharge. Objective - Constitutional Vitals: Vital Signs - 12hr 09/05/18 09/05/18 09/05/18 07:32 07:34 08:09 Temperature 97.6 F Pulse Rate 72 Pulse Rate [ Apical] Pulse Rate [ 84 Bilateral] Pulse Rate [ Right Radial] Respiratory 18 Rate Respiratory 18 Rate [Bilateral ] Blood Pressure 140/74 O2 Sat by Pulse 96 85 Oximetry 09/05/18 10:00 Temperature Pulse Rate 91 H Pulse Rate [ 92 H Apical] Pulse Rate [ Bilateral] Pulse Rate [ 91 H Right Radial] Respiratory 18 Rate Respiratory Rate [Bilateral ] Blood Pressure O2 Sat by Pulse 90 Oximetry General appearance: Present: no acute distress, well-nourished - EENT Eyes: PERRL, EOM intact ENT: hearing intact, clear oral mucosa Ears: bilateral: normal - Neck Neck: supple, normal ROM - Respiratory Respiratory effort: normal Respiratory: bilateral: CTA - Breasts Breasts: normal - Cardiovascular Rhythm: regular Heart Sounds: Present: S1 & S2. Absent: gallop, rub Extremities: pulses intact, No edema, normal color, Full ROM - Gastrointestinal General gastrointestinal: Present: soft, non-tender, non-distended, normal bowel sounds - Genitourinary Female genitourinary: normal - Integumentary Integumentary: clear, warm, dry - Musculoskeletal Musculoskeletal: 1, strength equal bilaterally - Neurologic Neurologic: moves all extremities - Psychiatric Psychiatric: memory intact, appropriate mood/affect, intact judgment & insight - Labs CBC & Chem 7: 09/05/18 07:50 09/05/18 07:50 Labs: Abnormal lab results 09/05/18 09/05/18 09/05/18 Range/Units 01:28 06:17 07:50 Lymph % (Auto) 8.1 L (13.4-35.0) % Lymph # 0.6 L (1.2-5.4) K/mm3 Seg Neutrophils % 88.5 H (40.0-70.0) % Creatinine (0.7-1.2) mg/dL Glucose (65-100) mg/dL POC Glucose 170 H 134 H (70-105) AST (5-40) units/L ALT (7-56) units/L Total Protein (6.3-8.2) g/dL Albumin (3.9-5) g/dL 09/05/18 09/05/18 Range/Units 07:50 12:20 Lymph % (Auto) (13.4-35.0) % Lymph # (1.2-5.4) K/mm3 Seg Neutrophils % (40.0-70.0) % Creatinine 0.6 L (0.7-1.2) mg/dL Glucose 137 H (65-100) mg/dL POC Glucose 157 H (70-105) AST 49 H (5-40) units/L ALT 243 H (7-56) units/L Total Protein 5.6 L (6.3-8.2) g/dL Albumin 3.7 L (3.9-5) g/dL
[2018-09-05] MEDS: ROCEPHIN/NS 2 GM/100 ML 2 GM/100 ML BAG IV SCH (20:50)
[2018-09-05] MEDS: PEPCID PO SCH (22:00)
[2018-09-05] MEDS: LOVENOX SUB-Q SCH (22:00)
[2018-09-05] MEDS: ZITHROMAX 500 MG in NACL 0.9% 250ML 250 ML IV SCH (22:04)
[2018-09-06] MEDS: SOLU-Medrol IV SCH ×3 (06:36→21:23)
[2018-09-06] MEDS: HumaLOG SUB-Q SCH ×5 (07:46→21:23)
[2018-09-06] MEDS: BROVANA NEBU IH SCH ×2 (07:48→20:11)
[2018-09-06] MEDS: PULMICORT IH SCH ×2 (07:48→20:11)
[2018-09-06] MEDS: KEPPRA PO SCH ×2 (09:20→21:27)
[2018-09-06] MEDS: PEPCID PO SCH ×2 (09:21→21:28)
[2018-09-06] MEDS: CLARITIN PO SCH (09:21)
[2018-09-06] MEDS: RisperDAL PO SCH ×2 (09:21→21:28)
[2018-09-06] MEDS: LaMICtal PO SCH ×2 (09:22→21:28)
[2018-09-06] MEDS: SODIUM CHLORIDE FLUSH SYRINGE 10 ML IV SCH ×2 (09:22→21:23)
[2018-09-06] MEDS: HABITROL TD SCH (09:22)
--- NOTE | 2018-09-06 15:31 | Progress Note ---
Assessment and Plan s/p Cardiopulmonary arrest with ROSC Acute hypoxemic hypercapnic respiratory failure s/p extubation AE-COPD Acute metabolic-toxic encephalopathy Tobacco use disorder Schizophrenia - complete empiric CAP AB's course - PRN CXR and ABG at this point - wean supplemental oxygen to keep O2 sats 88-90% - continue restrictive oxygen therapy - continue bronchodilators with pulmonary hygiene per RT - Chronic home medications for COPD - Continue short course of steroids with slow taper - Accuchecks with glycemic control. Target blood glucose <180mg/dL - Prevention of delirium, maintenance of sleep-wake cycle - Empiric antibiotic therapy for HAP - Will de-escalate therapy based on microbiology/BETHANY/Cultures - VTE and Stress ulcer prophylaxis - Nicotine withdrawal precautions - Smoking cessation counselling done at bedside - Increase activity ... re-evaluate in am & prn CONDITION: FAIR PROGNOSIS: FAIR CODE STATUS: FULL CODE Subjective Date of service: 09/06/18 Principal diagnosis: s/p Cardiac arrest with ROSC; Ac. hypoxemic hypercapnic resp failure; COPD Interval history: Patient is seen today for: s/p Cardiopulmonary arrest with ROSC; Acute hypoxemic hypercapnic respiratory failure s/p extubation; AE-COPD; Acute metabolic-toxic encephalopathy; Tobacco use disorder; Schizophrenia Seen and examined at bedside; 24hour events reviewed; nursing and respiratory care staff consulted; no adverse overnight events reported to me; resting in bed; no N/V/F/C Objective Vital Signs - 12hr 09/06/18 09/06/18 09/06/18 03:40 07:48 07:49 Temperature 97.8 F Pulse Rate 56 L Pulse Rate [ 57 L Bilateral] Respiratory 20 Rate Respiratory 17 Rate [Bilateral ] Blood Pressure 144/63 O2 Sat by Pulse 94 98 Oximetry 09/06/18 10:00 Temperature Pulse Rate 88 Pulse Rate [ Bilateral] Respiratory Rate Respiratory Rate [Bilateral ] Blood Pressure O2 Sat by Pulse Oximetry Constitutional: no acute distress, other (Atraumatic, normocephalic) Eyes: non-icteric, other (SHAWN, EOMI) ENT: oropharynx moist Neck: supple, no lymphadenopathy, no JVD Effort: mildly labored Ascultation: Bilateral: diminished breath sounds, rhonchi Percussion: Bilateral: not dull Cardiovascular: regular rate and rhythm (with episodes of bradycardia), other (S1,S2, no murmurs, gallops or rubs) Gastrointestinal: normoactive bowel sounds, hypoactive bowel sounds, non-tender, non-distended, other (Bowel sounds in all 4 quadrants) Integumentary: normal Extremities: no cyanosis, no edema, pink and warm, pulses normal, no ischemia or petechiae Neurologic: normal mental status, non-focal exam, pupils equal and round, motor strength normal and Psychiatric: mood appropriate, affect normal CBC and BMP: 09/05/18 07:50 09/05/18 07:50 ABG, PT/INR, D-dimer: ABG POC ABG pH 7.378 (7.35-7.45) 09/03/18 05:34 POC ABG pCO2 33.0 (35-45) L 09/03/18 05:34 POC ABG pO2 90 (80-105) 09/03/18 05:34 POC ABG HCO3 19.5 (22-26 mml/L) 09/03/18 05:34 POC ABG Total CO2 20 (23-27mmol/L) 09/03/18 05:34 POC ABG O2 Sat 97 09/03/18 05:34 PT/INR, D-dimer PT 12.4 Sec. (12.2-14.9) 09/02/18 15:21 INR 0.95 (0.87-1.13) 09/02/18 15:21 3805.72 ng/mlDDU (0-234) H 09/02/18 15:21 Abnormal lab findings: Abnormal Labs 09/02/18 09/02/18 09/02/18 14:40 14:53 15:21 Hgb Hct Lymph % (Auto) [place] % (Auto) Lymph # [place] # Seg Neutrophils % Seg Neuts % (Manual) Lymphocytes % (Manual) Seg Neutrophils # Man Lymphocytes # (Manual) APTT D-Dimer POC ABG pH 7.259 L POC ABG pCO2 67.4 H POC ABG pO2 67 L Chloride Carbon Dioxide BUN 19 H Creatinine Glucose 241 H POC Glucose 238 H Phosphorus Magnesium AST ALT Total Protein Albumin Prealbumin 09/02/18 09/02/18 09/02/18 15:21 15:21 15:44 Hgb 14.5 H Hct 43.3 H Lymph % (Auto) [place] % (Auto) Lymph # [place] # Seg Neutrophils % Seg Neuts % (Manual) 93.0 H Lymphocytes % (Manual) 4.0 L Seg Neutrophils # Man 8.7 H Lymphocytes # (Manual) 0.4 L APTT 22.3 L D-Dimer 3805.72 H POC ABG pH POC ABG pCO2 45.7 H POC ABG pO2 Chloride Carbon Dioxide BUN Creatinine Glucose POC Glucose Phosphorus Magnesium AST ALT Total Protein Albumin Prealbumin 09/02/18 09/03/18 09/03/18 20:34 04:30 04:51 Hgb Hct Lymph % (Auto) [place] % (Auto) 13.2 H Lymph # [place] # 0.9 H Seg Neutrophils % Seg Neuts % (Manual) Lymphocytes % (Manual) Seg Neutrophils # Man Lymphocytes # (Manual) APTT D-Dimer POC ABG pH POC ABG pCO2 POC ABG pO2 Chloride Carbon Dioxide BUN Creatinine Glucose POC Glucose 135 H Phosphorus 2.30 L Magnesium 1.60 L AST ALT Total Protein Albumin Prealbumin 0.193 L 09/03/18 09/03/18 09/03/18 04:51 05:34 11:37 Hgb Hct Lymph % (Auto) [place] % (Auto) Lymph # [place] # Seg Neutrophils % Seg Neuts % (Manual) Lymphocytes % (Manual) Seg Neutrophils # Man Lymphocytes # (Manual) APTT D-Dimer POC ABG pH POC ABG pCO2 33.0 L POC ABG pO2 Chloride 109.0 H Carbon Dioxide 21 L BUN 18 H Creatinine Glucose POC Glucose 138 H Phosphorus Magnesium AST 756 H ALT 402 H Total Protein 4.9 L D Albumin 2.9 L Prealbumin 09/03/18 09/05/18 09/05/18 18:04 01:28 06:17 Hgb Hct Lymph % (Auto) [place] % (Auto) Lymph # [place] # Seg Neutrophils % Seg Neuts % (Manual) Lymphocytes % (Manual) Seg Neutrophils # Man Lymphocytes # (Manual) APTT D-Dimer POC ABG pH POC ABG pCO2 POC ABG pO2 Chloride Carbon Dioxide BUN Creatinine Glucose POC Glucose 120 H 170 H 134 H Phosphorus Magnesium AST ALT Total Protein Albumin Prealbumin 09/05/18 09/05/18 09/05/18 07:50 07:50 12:20 Hgb Hct Lymph % (Auto) 8.1 L [place] % (Auto) Lymph # 0.6 L [place] # Seg Neutrophils % 88.5 H Seg Neuts % (Manual) Lymphocytes % (Manual) Seg Neutrophils # Man Lymphocytes # (Manual) APTT D-Dimer POC ABG pH POC ABG pCO2 POC ABG pO2 Chloride Carbon Dioxide BUN Creatinine 0.6 L Glucose 137 H POC Glucose 157 H Phosphorus Magnesium AST 49 H ALT 243 H Total Protein 5.6 L Albumin 3.7 L Prealbumin 09/05/18 09/05/18 09/06/18 17:14 21:02 06:40 Hgb Hct Lymph % (Auto) [place] % (Auto) Lymph # [place] # Seg Neutrophils % Seg Neuts % (Manual) Lymphocytes % (Manual) Seg Neutrophils # Man Lymphocytes # (Manual) APTT D-Dimer POC ABG pH POC ABG pCO2 POC ABG pO2 Chloride Carbon Dioxide BUN Creatinine Glucose POC Glucose 155 H 134 H 134 H Phosphorus Magnesium AST ALT Total Protein Albumin Prealbumin 09/06/18 12:28 Hgb Hct Lymph % (Auto) [place] % (Auto) Lymph # [place] # Seg Neutrophils % Seg Neuts % (Manual) Lymphocytes % (Manual) Seg Neutrophils # Man Lymphocytes # (Manual) APTT D-Dimer POC ABG pH POC ABG pCO2 POC ABG pO2 Chloride Carbon Dioxide BUN Creatinine Glucose POC Glucose 139 H Phosphorus Magnesium AST ALT Total Protein Albumin Prealbumin Chest x-ray: image reviewed Allied health notes reviewed: nursing
[2018-09-06] MEDS: ROCEPHIN/NS 2 GM/100 ML 2 GM/100 ML BAG IV SCH (20:17)
[2018-09-06] MEDS ORDERED: ZITHROMAX PO ONE (21:22)
[2018-09-06] MEDS: ZITHROMAX 500 MG in NACL 0.9% 250ML 250 ML IV SCH (21:22)
[2018-09-06] MEDS: LOVENOX SUB-Q SCH (21:27)
--- NOTE | 2018-09-07 08:04 | Progress Note ---
Assessment and Plan -s/p ? Cardiopulmonary arrest with ROSC -Acute hypoxemic hypercapnic respiratory failure s/p extubation -AE-COPD -Acute metabolic-toxic encephalopathy -Tobacco use disorder -Schizophrenia -PRN CXR and ABG -Supplemental oxygen to keep O2 sats 88-90% -Restrictive oxygen therapy -Bronchodilators -Chronic home medications for COPD - Continue short course of steroids -Accuchecks with glycemic control. Target blood glucose <180mg/dL -Prevention of delirium, maintenance of sleep-wake cycle -Empiric antibiotic therapy for HAP -VTE and Stress ulcer prophylaxis -Nicotine withdrawal precautions -Smoking cessation counselling -Increase activity Discharge planning CONDITION: FAIR PROGNOSIS: FAIR CODE STATUS: FULL CODE Subjective Date of service: 09/07/18 Principal diagnosis: Acute resp failure Interval history: Patient is seen today for: ?cardiopulmonary arrest, acute hypoxemic respiratory failure, AE-COPD Seen and examined at bedside; 24hour events reviewed; nursing and respiratory care staff consulted; no adverse overnight events reported to me;No acute overnight events,denies any chest pain, no shortness of breath, no fevers, no chills, no abdominal pain, family visiting, periodically takes off her oxygen Objective Vital Signs - 12hr 09/06/18 09/06/18 09/06/18 20:12 20:15 20:21 Temperature Pulse Rate Pulse Rate [ 109 H 111 H Bilateral] Respiratory Rate Respiratory 17 19 Rate [Bilateral ] Blood Pressure O2 Sat by Pulse 92 Oximetry 09/06/18 09/06/18 09/06/18 20:44 22:00 23:12 Temperature 98.2 F Pulse Rate 94 H 120 H Pulse Rate [ Bilateral] Respiratory 22 22 Rate Respiratory Rate [Bilateral ] Blood Pressure 118/76 O2 Sat by Pulse 94 Oximetry 09/07/18 04:09 Temperature 98.8 F Pulse Rate 74 Pulse Rate [ Bilateral] Respiratory 20 Rate Respiratory Rate [Bilateral ] Blood Pressure 123/68 O2 Sat by Pulse 96 Oximetry Constitutional: no acute distress, other (Atraumatic, normocephalic) Eyes: non-icteric, other (SHAWN, EOMI) ENT: oropharynx moist Neck: supple, no lymphadenopathy, no JVD Effort: mildly labored Ascultation: Bilateral: diminished breath sounds, rhonchi Percussion: Bilateral: not dull Cardiovascular: regular rate and rhythm (with episodes of bradycardia), other (S1,S2, no murmurs, gallops or rubs) Gastrointestinal: normoactive bowel sounds, hypoactive bowel sounds, non-tender, non-distended, other (Bowel sounds in all 4 quadrants) Integumentary: normal Extremities: no cyanosis, no edema, pink and warm, pulses normal, no ischemia or petechiae Neurologic: normal mental status, non-focal exam, pupils equal and round, motor strength normal and Psychiatric: mood appropriate, affect normal CBC and BMP: 09/05/18 07:50 09/05/18 07:50 ABG, PT/INR, D-dimer: ABG POC ABG pH 7.378 (7.35-7.45) 09/03/18 05:34 POC ABG pCO2 33.0 (35-45) L 09/03/18 05:34 POC ABG pO2 90 (80-105) 09/03/18 05:34 POC ABG HCO3 19.5 (22-26 mml/L) 09/03/18 05:34 POC ABG Total CO2 20 (23-27mmol/L) 09/03/18 05:34 POC ABG O2 Sat 97 09/03/18 05:34 PT/INR, D-dimer PT 12.4 Sec. (12.2-14.9) 09/02/18 15:21 INR 0.95 (0.87-1.13) 09/02/18 15:21 3805.72 ng/mlDDU (0-234) H 09/02/18 15:21 Abnormal lab findings: Abnormal Labs 09/02/18 09/02/18 09/02/18 14:40 14:53 15:21 Hgb Hct Lymph % (Auto) [place] % (Auto) Lymph # [place] # Seg Neutrophils % Seg Neuts % (Manual) Lymphocytes % (Manual) Seg Neutrophils # Man Lymphocytes # (Manual) APTT D-Dimer POC ABG pH 7.259 L POC ABG pCO2 67.4 H POC ABG pO2 67 L Chloride Carbon Dioxide BUN 19 H Creatinine Glucose 241 H POC Glucose 238 H Phosphorus Magnesium AST ALT Total Protein Albumin Prealbumin 09/02/18 09/02/18 09/02/18 15:21 15:21 15:44 Hgb 14.5 H Hct 43.3 H Lymph % (Auto) [place] % (Auto) Lymph # [place] # Seg Neutrophils % Seg Neuts % (Manual) 93.0 H Lymphocytes % (Manual) 4.0 L Seg Neutrophils # Man 8.7 H Lymphocytes # (Manual) 0.4 L APTT 22.3 L D-Dimer 3805.72 H POC ABG pH POC ABG pCO2 45.7 H POC ABG pO2 Chloride Carbon Dioxide BUN Creatinine Glucose POC Glucose Phosphorus Magnesium AST ALT Total Protein Albumin Prealbumin 09/02/18 09/03/18 09/03/18 20:34 04:30 04:51 Hgb Hct Lymph % (Auto) [place] % (Auto) 13.2 H Lymph # [place] # 0.9 H Seg Neutrophils % Seg Neuts % (Manual) Lymphocytes % (Manual) Seg Neutrophils # Man Lymphocytes # (Manual) APTT D-Dimer POC ABG pH POC ABG pCO2 POC ABG pO2 Chloride Carbon Dioxide BUN Creatinine Glucose POC Glucose 135 H Phosphorus 2.30 L Magnesium 1.60 L AST ALT Total Protein Albumin Prealbumin 0.193 L 09/03/18 09/03/18 09/03/18 04:51 05:34 11:37 Hgb Hct Lymph % (Auto) [place] % (Auto) Lymph # [place] # Seg Neutrophils % Seg Neuts % (Manual) Lymphocytes % (Manual) Seg Neutrophils # Man Lymphocytes # (Manual) APTT D-Dimer POC ABG pH POC ABG pCO2 33.0 L POC ABG pO2 Chloride 109.0 H Carbon Dioxide 21 L BUN 18 H Creatinine Glucose POC Glucose 138 H Phosphorus Magnesium AST 756 H ALT 402 H Total Protein 4.9 L D Albumin 2.9 L Prealbumin 09/03/18 09/05/18 09/05/18 18:04 01:28 06:17 Hgb Hct Lymph % (Auto) [place] % (Auto) Lymph # [place] # Seg Neutrophils % Seg Neuts % (Manual) Lymphocytes % (Manual) Seg Neutrophils # Man Lymphocytes # (Manual) APTT D-Dimer POC ABG pH POC ABG pCO2 POC ABG pO2 Chloride Carbon Dioxide BUN Creatinine Glucose POC Glucose 120 H 170 H 134 H Phosphorus Magnesium AST ALT Total Protein Albumin Prealbumin 09/05/18 09/05/18 09/05/18 07:50 07:50 12:20 Hgb Hct Lymph % (Auto) 8.1 L [place] % (Auto) Lymph # 0.6 L [place] # Seg Neutrophils % 88.5 H Seg Neuts % (Manual) Lymphocytes % (Manual) Seg Neutrophils # Man Lymphocytes # (Manual) APTT D-Dimer POC ABG pH POC ABG pCO2 POC ABG pO2 Chloride Carbon Dioxide BUN Creatinine 0.6 L Glucose 137 H POC Glucose 157 H Phosphorus Magnesium AST 49 H ALT 243 H Total Protein 5.6 L Albumin 3.7 L Prealbumin 09/05/18 09/05/18 09/06/18 17:14 21:02 06:40 Hgb Hct Lymph % (Auto) [place] % (Auto) Lymph # [place] # Seg Neutrophils % Seg Neuts % (Manual) Lymphocytes % (Manual) Seg Neutrophils # Man Lymphocytes # (Manual) APTT D-Dimer POC ABG pH POC ABG pCO2 POC ABG pO2 Chloride Carbon Dioxide BUN Creatinine Glucose POC Glucose 155 H 134 H 134 H Phosphorus Magnesium AST ALT Total Protein Albumin Prealbumin 09/06/18 09/06/18 09/06/18 12:28 18:20 20:43 Hgb Hct Lymph % (Auto) [place] % (Auto) Lymph # [place] # Seg Neutrophils % Seg Neuts % (Manual) Lymphocytes % (Manual) Seg Neutrophils # Man Lymphocytes # (Manual) APTT D-Dimer POC ABG pH POC ABG pCO2 POC ABG pO2 Chloride Carbon Dioxide BUN Creatinine Glucose POC Glucose 139 H 155 H 179 H Phosphorus Magnesium AST ALT Total Protein Albumin Prealbumin Allied health notes reviewed: nursing
[2018-09-07] MEDS: HumaLOG SUB-Q SCH ×4 (08:44→21:33)
--- NOTE | 2018-09-07 09:05 | Progress Note ---
Assessment and Plan Assessment and plan: (1) Acute respiratory failure with hypoxia and hypercapnia Current Visit: Yes Status: Acute Plan to address problem: Improved Extubated Cont Duonebs IV Solumedrol IV Abx (2) COPD with acute exacerbation Current Visit: Yes Status: Acute Plan to address problem: COnt Duoebs IV solumedrol andIV abx (3) HTN (hypertension) Current Visit: Yes Status: Chronic Qualifiers: Hypertension type: essential hypertension Qualified Code(s): I10 - Essential (primary) hypertension Plan to address problem: COnt antihypertensives (4) Seizure disorder Current Visit: Yes Status: Chronic Plan to address problem: Cont Keppra and Lamictal (5) Depression Current Visit: Yes Status: Chronic Qualifiers: Depression Type: unspecified Qualified Code(s): F32.9 - Major depressive disorder, single episode, unspecified Plan to address problem: Cont Trazodone and Risperidone (6) IDDM (insulin dependent diabetes mellitus) Current Visit: Yes Status: Chronic Plan to address problem: Cont Insulin a70/30 and coverage (7) Nicotine dependence Current Visit: Yes Status: Chronic Qualifiers: Nicotine product type: cigarettes Plan to address problem: Counseled about smoking cessation for 10 minutes Nicoderm patch initiated (8) Malnutrition of moderate degree Current Visit: Yes Status: Chronic Plan to address problem: Dietitian consult (9) DVT prophylaxis Current Visit: No Status: Acute Plan to address problem: On Lovenox and GI prophylaxis (10) Discharge planning issues Current Visit: Yes Status: Acute Plan to address problem: DOing better,Sitting in chair,More coherent May go Home tomorrow May need Home O2 Room air ABG in AM History Interval history: Patient seen and examined medical records reviewed patient feels better no new complaints Patient wants to go home however patient needs home oxygen set up Alert awake oriented vital signs noted Hospitalist Physical - Constitutional Vitals: Temp Pulse Resp BP Pulse Ox 98.4 F 86 18 121/82 97 09/07/18 08:09 09/07/18 08:09 09/07/18 08:09 09/07/18 08:09 09/07/18 08:09 General appearance: Present: mild distress, well-nourished - EENT Eyes: Present: PERRL, EOM intact - Neck Neck: Present: supple, normal ROM - Respiratory Respiratory effort: normal Respiratory: bilateral: diminished, rhonchi, negative: rales, wheezing - Cardiovascular Rhythm: regular Heart Sounds: Present: S1 & S2 - Extremities Extremities: no ischemia, No edema - Abdominal General gastrointestinal: soft, non-tender, non-distended, normal bowel sounds - Integumentary Integumentary: Present: clear, warm - Psychiatric Psychiatric: appropriate mood/affect, cooperative - Neurologic Neurologic: moves all extremities Results - Labs CBC & Chem 7: 09/05/18 07:50 09/05/18 07:50 Labs: Laboratory Last Values WBC 7.6 K/mm3 (4.5-11.0) 09/05/18 07:50 RBC 4.09 M/mm3 (3.65-5.03) 09/05/18 07:50 Hgb 12.7 gm/dl (10.1-14.3) 09/05/18 07:50 Hct 37.8 % (30.3-42.9) 09/05/18 07:50 MCV 93 fl (79-97) 09/05/18 07:50 MCH 31 pg (28-32) 09/05/18 07:50 MCHC 34 % (30-34) 09/05/18 07:50 RDW 14.6 % (13.2-15.2) 09/05/18 07:50 Plt Count 171 K/mm3 (140-440) 09/05/18 07:50 Lymph % (Auto) 8.1 % (13.4-35.0) L 09/05/18 07:50 [place] % (Auto) 3.2 % (0.0-7.3) 09/05/18 07:50 Eos % (Auto) 0.0 % (0.0-4.3) 09/05/18 07:50 Baso % (Auto) 0.2 % (0.0-1.8) 09/05/18 07:50 Lymph # 0.6 K/mm3 (1.2-5.4) L 09/05/18 07:50 [place] # 0.2 K/mm3 (0.0-0.8) 09/05/18 07:50 Eos # 0.0 K/mm3 (0.0-0.4) 09/05/18 07:50 Baso # 0.0 K/mm3 (0.0-0.1) 09/05/18 07:50 Add Manual Diff Complete 09/02/18 15:21 Total Counted 100 09/02/18 15:21 Seg Neutrophils % 88.5 % (40.0-70.0) H 09/05/18 07:50 Seg Neuts % (Manual) 93.0 % (40.0-70.0) H 09/02/18 15:21 0 % 09/02/18 15:21 4.0 % (13.4-35.0) L 09/02/18 15:21 Reactive Lymphs % (Man) 0 % 09/02/18 15:21 1.0 % (0.0-7.3) 09/02/18 15:21 0 % (0.0-4.3) 09/02/18 15:21 0 % (0.0-1.8) 09/02/18 15:21 1.0 % 09/02/18 15:21 1.0 % 09/02/18 15:21 0 % 09/02/18 15:21 0 % 09/02/18 15:21 Nucleated RBC % Not Reportable 09/02/18 15:21 Seg Neutrophils # 6.7 K/mm3 (1.8-7.7) 09/05/18 07:50 Seg Neutrophils # Man 8.7 K/mm3 (1.8-7.7) H 09/02/18 15:21 Band Neutrophils # 0.0 K/mm3 09/02/18 15:21 0.4 K/mm3 (1.2-5.4) L 09/02/18 15:21 Abs React Lymphs (Man) 0.0 K/mm3 09/02/18 15:21 0.1 K/mm3 (0.0-0.8) 09/02/18 15:21 0.0 K/mm3 (0.0-0.4) 09/02/18 15:21 0.0 K/mm3 (0.0-0.1) 09/02/18 15:21 0.1 K/mm3 09/02/18 15:21 0.1 K/mm3 09/02/18 15:21 0.0 K/mm3 09/02/18 15:21 Blast Cells # 0.0 K/mm3 09/02/18 15:21 WBC Morphology Not Reportable 09/02/18 15:21 Hypersegmented Neuts Not Reportable 09/02/18 15:21 Hyposegmented Neuts Not Reportable 09/02/18 15:21 Hypogranular Neuts Not Reportable 09/02/18 15:21 Not Reportable 09/02/18 15:21 Not Reportable 09/02/18 15:21 Not Reportable 09/02/18 15:21 Not Reportable 09/02/18 15:21 Not Reportable 09/02/18 15:21 Not Reportable 09/02/18 15:21 Appears normal 09/02/18 15:21 Not Reportable 09/02/18 15:21 Plt Clumps, EDTA Not Reportable 09/02/18 15:21 Not Reportable 09/02/18 15:21 Not Reportable 09/02/18 15:21 Not Reportable 09/02/18 15:21 Plt Morphology Comment Not Reportable 09/02/18 15:21 RBC Morphology Not Reportable 09/02/18 15:21 Dimorphic RBCs Not Reportable 09/02/18 15:21 Not Reportable 09/02/18 15:21 Not Reportable 09/02/18 15:21 Few 09/02/18 15:21 1+ 09/02/18 15:21 Not Reportable 09/02/18 15:21 Not Reportable 09/02/18 15:21 Not Reportable 09/02/18 15:21 Not Reportable 09/02/18 15:21 Not Reportable 09/02/18 15:21 Not Reportable 09/02/18 15:21 Not Reportable 09/02/18 15:21 Not Reportable 09/02/18 15:21 Not Reportable 09/02/18 15:21 Not Reportable 09/02/18 15:21 Not Reportable 09/02/18 15:21 Not Reportable 09/02/18 15:21 Not Reportable 09/02/18 15:21 Not Reportable 09/02/18 15:21 Not Reportable 09/02/18 15:21 Acanthocytes (Spur) Not Reportable 09/02/18 15:21 Rouleaux Not Reportable 09/02/18 15:21 Not Reportable 09/02/18 15:21 Not Reportable 09/02/18 15:21 Not Reportable 09/02/18 15:21 Not Reportable 09/02/18 15:21 Hem Pathologist Commnt No 09/02/18 15:21 PT 12.4 Sec. (12.2-14.9) 09/02/18 15:21 INR 0.95 (0.87-1.13) 09/02/18 15:21 APTT 22.3 Sec. (24.2-36.6) L 09/02/18 15:21 3805.72 ng/mlDDU (0-234) H 09/02/18 15:21 POC ABG pH 7.378 (7.35-7.45) 09/03/18 05:34 POC ABG pCO2 33.0 (35-45) L 09/03/18 05:34 POC ABG pO2 90 (80-105) 09/03/18 05:34 POC ABG HCO3 19.5 (22-26 mml/L) 09/03/18 05:34 POC ABG Total CO2 20 (23-27mmol/L) 09/03/18 05:34 POC ABG O2 Sat 97 09/03/18 05:34 POC ABG Base Excess -6 ((-2) - (+3)mmol/L) 09/03/18 05:34 30 % 09/03/18 05:34 Sodium 141 mmol/L (137-145) 09/05/18 07:50 Potassium 4.3 mmol/L (3.6-5.0) 09/05/18 07:50 Chloride 105.7 mmol/L (98-107) 09/05/18 07:50 Carbon Dioxide 23 mmol/L (22-30) 09/05/18 07:50 17 mmol/L 09/05/18 07:50 BUN 14 mg/dL (7-17) 09/05/18 07:50 0.6 mg/dL (0.7-1.2) L 09/05/18 07:50 Estimated GFR > 60 ml/min 09/05/18 07:50 23 % 09/05/18 07:50 Glucose 137 mg/dL (65-100) H 09/05/18 07:50 POC Glucose 179 (70-105) H 09/06/18 20:43 < 4.2 % (4-6) 09/02/18 20:47 Lactic Acid 1.80 mmol/L (0.7-2.0) 09/02/18 15:21 Calcium 9.3 mg/dL (8.4-10.2) 09/05/18 07:50 Phosphorus 2.30 mg/dL (2.5-4.5) L 09/02/18 20:34 Magnesium 1.60 mg/dL (1.7-2.3) L 09/02/18 20:34 0.20 mg/dL (0.1-1.2) 09/05/18 07:50 AST 49 units/L (5-40) H 09/05/18 07:50 ALT 243 units/L (7-56) H 09/05/18 07:50 116 units/L (35-129) 09/05/18 07:50 < 0.010 ng/mL (0.00-0.029) 09/02/18 20:34 5.6 g/dL (6.3-8.2) L 09/05/18 07:50 3.7 g/dL (3.9-5) L 09/05/18 07:50 1.9 % 09/05/18 07:50 0.193 g/L (0.200-0.400) L 09/02/18 20:34 Yellow (Yellow) 09/02/18 17:16 Clear (Clear) 09/02/18 17:16 6.0 (5.0-7.0) 09/02/18 17:16 Ur Specific [place] 1.021 (1.003-1.030) 09/02/18 17:16 30 mg/dl mg/dL (Negative) 09/02/18 17:16 Neg mg/dL (Negative) 09/02/18 17:16 Neg mg/dL (Negative) 09/02/18 17:16 Neg (Negative) 09/02/18 17:16 Neg (Negative) 09/02/18 17:16 Neg (Negative) 09/02/18 17:16 < 2.0 mg/dL (<2.0) 09/02/18 17:16 Ur Leukocyte Esterase Neg (Negative) 09/02/18 17:16 1.0 /HPF (0.0-6.0) 09/02/18 17:16 2.0 /HPF (0.0-6.0) 09/02/18 17:16 U Epithel Cells (Auto) < 1.0 /HPF (0-13.0) 09/02/18 17:16 Few /HPF 09/02/18 17:16 Active Medications - Current Medications Current Medications: Generic Name Dose Route Start Last Admin Trade Name Freq PRN Reason Stop Dose Admin Acetaminophen 650 mg 09/02/18 19:48 Tylenol PO Q4H PRN Pain MILD(1-3)/Fever >100.5/RODRIGUEZ Albuterol 2.5 mg 09/02/18 19:53 Proventil IH Q4HRT PRN Shortness Of Breath Lipase/Protease/Amylase 1 each 09/02/18 19:55 Pancrejoselito Ferrell 10,500 Unit FEEDTUBE PRN PRN For Clogged Feeding Tube Arformoterol Tartrate 15 mcg 09/04/18 08:00 09/06/18 20:11 Brovana Nebu IH 15 mcg Q12HRT VANESSA Administration Benztropine Mesylate 1 mg 09/02/18 19:57 Cogentin PO Q4H PRN Extrapyramidal Effects Budesonide 0.5 mg 09/04/18 08:00 09/06/18 20:11 Pulmicort IH 0.5 mg Q12HRT VANESSA Administration Clonidine HCl 0.1 mg 09/02/18 19:57 09/04/18 23:02 Catapres PO 0.1 mg Q8H PRN Administration Blood Pressure Enoxaparin Sodium 40 mg 09/03/18 22:00 09/06/18 21:27 Lovenox SUB-Q 40 mg QDAY@2200 VANESSA Administration Famotidine 20 mg 09/05/18 22:00 09/06/18 21:28 Pepcid PO 20 mg BID VANESSA Administration Hydrophilic Ointment 1 applic 09/02/18 15:01 Vaseline Lip Therapy TP Q2HR PRN Dry Lips Insulin Human Lispro 0 unit 09/06/18 22:00 09/07/18 08:44 Humalog SUB-Q Not Given ACHS [facility] Protocol Lamotrigine 25 mg 09/02/18 22:00 09/06/18 21:28 Lamictal PO 25 mg BID VANESSA Administration Levetiracetam 750 mg 09/02/18 22:00 09/06/18 21:27 Keppra PO 750 mg Q12HR VANESSA Administration Loperamide HCl 2 mg 09/03/18 20:20 09/05/18 16:36 Imodium PO 2 mg Q3HR PRN Administration Diarrhea Loratadine 10 mg 09/02/18 20:00 09/06/18 09:21 Claritin PO 10 mg DAILY VANESSA Administration Lorazepam 1 mg 09/02/18 19:57 Ativan IV Q8H PRN Agitation Lorazepam 1 mg 09/03/18 20:20 Ativan PO Q8H PRN Agitation Methylprednisolone Sodium Succinate 20 mg 09/07/18 10:00 Solu-Medrol IV 09/07/18 22:01 Q12HR [facility] Methylprednisolone Sodium Succinate 20 mg 09/08/18 10:00 Solu-Medrol IV 09/08/18 10:01 Q24HR [facility] Metoclopramide HCl 10 mg 09/02/18 19:48 09/03/18 15:32 Reglan IV 10 mg Q6H PRN Administration Nausea And Vomiting Morphine Sulfate 2 mg 09/02/18 19:48 09/05/18 16:37 Morphine IV 2 mg Q4H PRN Administration Pain, Moderate (4-6) Multi-Ingred Cream/Lotion/Oil/Oint 1 applic 09/02/18 15:01 Artificial Tears Ophth Oint OU Q4HR PRN Dry Eye(s) Nicotine 14 mg 09/03/18 21:00 09/06/18 09:22 Habitrol TD Not Given QDAY [facility] Ondansetron HCl 4 mg 09/02/18 19:48 Zofran IV Q8H PRN Nausea And Vomiting Promethazine HCl 25 mg 09/02/18 19:57 Phenergan PO Q4H PRN Nausea And Vomiting Risperidone 3 mg 09/02/18 22:00 09/06/18 21:28 Risperdal PO 3 mg BID VANESSA Administration Simple Syrup 15 ml 09/02/18 19:55 Simple Syrup FEEDTUBE PRN PRN Hypoglycemia Simple Syrup 30 ml 09/02/18 19:55 Simple Syrup FEEDTUBE PRN PRN Hypoglycemia Sodium Bicarbonate 325 mg 09/02/18 19:55 Sodium Bicarbonate FEEDTUBE PRN PRN For Clogged Feeding Tube Sodium Chloride 10 ml 09/02/18 22:00 09/06/18 21:23 Sodium Chloride Flush Syringe 10 Ml IV Not Given BID VANESSA Sodium Chloride 10 ml 09/02/18 19:48 Sodium Chloride Flush Syringe 10 Ml IV PRN PRN LINE FLUSH Trazodone HCl 50 mg 09/02/18 19:57 Desyrel PO QHS PRN Sleep Nutrition/Malnutrition Assess - Dietary Evaluation Nutrition/Malnutrition Findings: Nutrition Notes Start: 09/03/18 11:18 Freq: Status: Active Protocol: Document 09/05/18 15:21 RM (Rec: 09/05/18 15:27 RM [id number]) Nutrition Notes Initial or Follow up Reassessment Current Diagnosis COPD,Hypertension Other Pertinent Diagnosis Seizure disorder,Cardiac Arrest, Schizophrenia, Hx Cholecystectomy Current Diet Cardiac/Consistent CHO Labs/Tests BG 137 Pertinent Medications Solumedrol Height 5 ft 7 in Weight 72.575 kg [place] Body Weight (kg) 61.36 BMI 25.0 Subjective/Other Information Diet advanced to Cardiac/ Consistent CHO. Nurse speaking w/pt about compliance at time of visit. Recorded PO intake 0% X 3 meals. Percent of energy/protein needs met: 0%/0% Burn Absent Trauma Absent #1 Nutrition Diagnosis Inadequate oral intake Diagnosis Progress(for reassessment Continues documentation) Is patient on ventilator? No Is Patient Ambulatory and/or Out of Bed No REE-([facility]-confined to bed) [phone] Calculation Used for Recommendations [facility] Additional Notes Protein needs are 73-87g (1-1. 2g/kg) Fluid needs are 1ml/kcal Nutrition Intervention Change Diet Order: Continue current Add Supplement/Snack (indicate name/kcal Ensure Enlive 1 daily /protein ) Provides kCal: 350 Provides Protein (gm) 20 Goal #1 Meet at least 75% of calorie and protein needs via PO and ONS intakes Anticipated Discharge Needs: Unable to determine at this time Follow-Up By: 09/09/18 Additional Comments Follow for PO and ONS intakes
[2018-09-07] MEDS: CLARITIN PO SCH (09:53)
[2018-09-07] MEDS: PEPCID PO SCH ×2 (09:53→21:36)
[2018-09-07] MEDS: KEPPRA PO SCH ×2 (09:53→21:34)
[2018-09-07] MEDS: SODIUM CHLORIDE FLUSH SYRINGE 10 ML IV SCH ×2 (09:54→21:38)
[2018-09-07] MEDS: RisperDAL PO SCH ×2 (09:54→21:38)
[2018-09-07] MEDS: LaMICtal PO SCH ×2 (09:54→21:35)
[2018-09-07] MEDS: SOLU-Medrol IV SCH ×2 (09:55→22:17)
[2018-09-07] MEDS: HABITROL TD SCH (09:58)
[2018-09-07] MEDS: PULMICORT IH SCH ×2 (11:34→20:26)
[2018-09-07] MEDS: BROVANA NEBU IH SCH ×2 (11:34→20:26)
[2018-09-07] MEDS: LOVENOX SUB-Q SCH (21:34)
[2018-09-08] MEDS: HumaLOG SUB-Q SCH ×2 (08:19→12:13)
[2018-09-08 08:22] VITALS: BP 107/67
[2018-09-08] MEDS: PULMICORT IH SCH (09:09)
[2018-09-08] MEDS: BROVANA NEBU IH SCH (09:09)
[2018-09-08] MEDS: RisperDAL PO SCH (09:11)
[2018-09-08] MEDS: PEPCID PO SCH (09:11)
[2018-09-08] MEDS: KEPPRA PO SCH (09:11)
[2018-09-08] MEDS: LaMICtal PO SCH (09:11)
[2018-09-08] MEDS: CLARITIN PO SCH (09:11)
[2018-09-08] MEDS: HABITROL TD SCH (09:13)
--- NOTE | 2018-09-08 09:39 | Progress Note ---
Assessment and Plan -s/p ? Cardiopulmonary arrest with ROSC -Acute hypoxemic hypercapnic respiratory failure s/p extubation -AE-COPD -Acute metabolic-toxic encephalopathy -Tobacco use disorder -Schizophrenia - Wean supplemental oxygen for O2 sats 88-90% -Restrictive oxygen therapy -Bronchodilators -Chronic home medications for COPD - Continue short course of steroids, conitnue with taper -Accuchecks with glycemic control. Target blood glucose <180mg/dL - Complete empiric antibiotic therapy for HAP -VTE prophylaxis -Nicotine withdrawal precautions -Smoking cessation counselling -Increase activity Discharge planning CONDITION: FAIR PROGNOSIS: FAIR CODE STATUS: FULL CODE Subjective Date of service: 09/08/18 Principal diagnosis: Acute resp failure Interval history: Patient is seen today for: ?cardiopulmonary arrest, acute hypoxemic respiratory failure, AE-COPD Seen and examined at bedside; 24hour events reviewed; vitals, labs, medications, chart reviewed; nursing and respiratory care staff consulted; no adverse overnight events reported to me;No acute overnight events,denies any chest pain, no shortness of breath, no fevers, no chills, no abdominal pain, family visiting, Objective Vital Signs - 12hr 09/08/18 09/08/18 09/08/18 00:00 08:20 09:10 Temperature 98.4 F 98.5 F Pulse Rate 90 84 Pulse Rate [ 107 H Bilateral] Respiratory 18 18 Rate Respiratory 20 Rate [Bilateral ] Blood Pressure 107/67 Blood Pressure 121/71 [Right] O2 Sat by Pulse 95 94 Oximetry 09/08/18 09/08/18 09:28 09:36 Temperature Pulse Rate Pulse Rate [ 99 H Bilateral] Respiratory Rate Respiratory 20 Rate [Bilateral ] Blood Pressure Blood Pressure [Right] O2 Sat by Pulse 96 Oximetry Constitutional: no acute distress, other (Atraumatic, normocephalic) Eyes: non-icteric, other (SHAWN, EOMI) ENT: oropharynx moist Neck: supple, no lymphadenopathy, no JVD Effort: normal Ascultation: Bilateral: diminished breath sounds, rhonchi Percussion: Bilateral: not dull Cardiovascular: regular rate and rhythm (with episodes of bradycardia), other (S1,S2, no murmurs, gallops or rubs) Gastrointestinal: normoactive bowel sounds, hypoactive bowel sounds, non-tender, non-distended, other (Bowel sounds in all 4 quadrants) Integumentary: normal Extremities: no cyanosis, no edema, pink and warm, pulses normal, no ischemia or petechiae Neurologic: normal mental status, non-focal exam, pupils equal and round, motor strength normal and Psychiatric: mood appropriate, affect normal CBC and BMP: 09/05/18 07:50 09/05/18 07:50 ABG, PT/INR, D-dimer: ABG POC ABG pH 7.378 (7.35-7.45) 09/03/18 05:34 POC ABG pCO2 33.0 (35-45) L 09/03/18 05:34 POC ABG pO2 90 (80-105) 09/03/18 05:34 POC ABG HCO3 19.5 (22-26 mml/L) 09/03/18 05:34 POC ABG Total CO2 20 (23-27mmol/L) 09/03/18 05:34 POC ABG O2 Sat 97 09/03/18 05:34 PT/INR, D-dimer PT 12.4 Sec. (12.2-14.9) 09/02/18 15:21 INR 0.95 (0.87-1.13) 09/02/18 15:21 3805.72 ng/mlDDU (0-234) H 09/02/18 15:21 Abnormal lab findings: Abnormal Labs 09/02/18 09/02/18 09/02/18 14:40 14:53 15:21 Hgb Hct Lymph % (Auto) [place] % (Auto) Lymph # [place] # Seg Neutrophils % Seg Neuts % (Manual) Lymphocytes % (Manual) Seg Neutrophils # Man Lymphocytes # (Manual) APTT D-Dimer POC ABG pH 7.259 L POC ABG pCO2 67.4 H POC ABG pO2 67 L Chloride Carbon Dioxide BUN 19 H Creatinine Glucose 241 H POC Glucose 238 H Phosphorus Magnesium AST ALT Total Protein Albumin Prealbumin 09/02/18 09/02/18 09/02/18 15:21 15:21 15:44 Hgb 14.5 H Hct 43.3 H Lymph % (Auto) [place] % (Auto) Lymph # [place] # Seg Neutrophils % Seg Neuts % (Manual) 93.0 H Lymphocytes % (Manual) 4.0 L Seg Neutrophils # Man 8.7 H Lymphocytes # (Manual) 0.4 L APTT 22.3 L D-Dimer 3805.72 H POC ABG pH POC ABG pCO2 45.7 H POC ABG pO2 Chloride Carbon Dioxide BUN Creatinine Glucose POC Glucose Phosphorus Magnesium AST ALT Total Protein Albumin Prealbumin 09/02/18 09/03/18 09/03/18 20:34 04:30 04:51 Hgb Hct Lymph % (Auto) [place] % (Auto) 13.2 H Lymph # [place] # 0.9 H Seg Neutrophils % Seg Neuts % (Manual) Lymphocytes % (Manual) Seg Neutrophils # Man Lymphocytes # (Manual) APTT D-Dimer POC ABG pH POC ABG pCO2 POC ABG pO2 Chloride Carbon Dioxide BUN Creatinine Glucose POC Glucose 135 H Phosphorus 2.30 L Magnesium 1.60 L AST ALT Total Protein Albumin Prealbumin 0.193 L 09/03/18 09/03/18 09/03/18 04:51 05:34 11:37 Hgb Hct Lymph % (Auto) [place] % (Auto) Lymph # [place] # Seg Neutrophils % Seg Neuts % (Manual) Lymphocytes % (Manual) Seg Neutrophils # Man Lymphocytes # (Manual) APTT D-Dimer POC ABG pH POC ABG pCO2 33.0 L POC ABG pO2 Chloride 109.0 H Carbon Dioxide 21 L BUN 18 H Creatinine Glucose POC Glucose 138 H Phosphorus Magnesium AST 756 H ALT 402 H Total Protein 4.9 L D Albumin 2.9 L Prealbumin 09/03/18 09/05/18 09/05/18 18:04 01:28 06:17 Hgb Hct Lymph % (Auto) [place] % (Auto) Lymph # [place] # Seg Neutrophils % Seg Neuts % (Manual) Lymphocytes % (Manual) Seg Neutrophils # Man Lymphocytes # (Manual) APTT D-Dimer POC ABG pH POC ABG pCO2 POC ABG pO2 Chloride Carbon Dioxide BUN Creatinine Glucose POC Glucose 120 H 170 H 134 H Phosphorus Magnesium AST ALT Total Protein Albumin Prealbumin 09/05/18 09/05/18 09/05/18 07:50 07:50 12:20 Hgb Hct Lymph % (Auto) 8.1 L [place] % (Auto) Lymph # 0.6 L [place] # Seg Neutrophils % 88.5 H Seg Neuts % (Manual) Lymphocytes % (Manual) Seg Neutrophils # Man Lymphocytes # (Manual) APTT D-Dimer POC ABG pH POC ABG pCO2 POC ABG pO2 Chloride Carbon Dioxide BUN Creatinine 0.6 L Glucose 137 H POC Glucose 157 H Phosphorus Magnesium AST 49 H ALT 243 H Total Protein 5.6 L Albumin 3.7 L Prealbumin 09/05/18 09/05/18 09/06/18 17:14 21:02 06:40 Hgb Hct Lymph % (Auto) [place] % (Auto) Lymph # [place] # Seg Neutrophils % Seg Neuts % (Manual) Lymphocytes % (Manual) Seg Neutrophils # Man Lymphocytes # (Manual) APTT D-Dimer POC ABG pH POC ABG pCO2 POC ABG pO2 Chloride Carbon Dioxide BUN Creatinine Glucose POC Glucose 155 H 134 H 134 H Phosphorus Magnesium AST ALT Total Protein Albumin Prealbumin 09/06/18 09/06/18 09/06/18 12:28 18:20 20:43 Hgb Hct Lymph % (Auto) [place] % (Auto) Lymph # [place] # Seg Neutrophils % Seg Neuts % (Manual) Lymphocytes % (Manual) Seg Neutrophils # Man Lymphocytes # (Manual) APTT D-Dimer POC ABG pH POC ABG pCO2 POC ABG pO2 Chloride Carbon Dioxide BUN Creatinine Glucose POC Glucose 139 H 155 H 179 H Phosphorus Magnesium AST ALT Total Protein Albumin Prealbumin 09/07/18 09/07/18 09/07/18 08:29 12:24 17:02 Hgb Hct Lymph % (Auto) [place] % (Auto) Lymph # [place] # Seg Neutrophils % Seg Neuts % (Manual) Lymphocytes % (Manual) Seg Neutrophils # Man Lymphocytes # (Manual) APTT D-Dimer POC ABG pH POC ABG pCO2 POC ABG pO2 Chloride Carbon Dioxide BUN Creatinine Glucose POC Glucose 111 H 115 H 125 H Phosphorus Magnesium AST ALT Total Protein Albumin Prealbumin 09/07/18 20:42 Hgb Hct Lymph % (Auto) [place] % (Auto) Lymph # [place] # Seg Neutrophils % Seg Neuts % (Manual) Lymphocytes % (Manual) Seg Neutrophils # Man Lymphocytes # (Manual) APTT D-Dimer POC ABG pH POC ABG pCO2 POC ABG pO2 Chloride Carbon Dioxide BUN Creatinine Glucose POC Glucose 118 H Phosphorus Magnesium AST ALT Total Protein Albumin Prealbumin Allied health notes reviewed: nursing
[2018-09-08] MEDS ORDERED: SOLU-Medrol IV SCH (10:00)
[2018-09-08] MEDS: SODIUM CHLORIDE FLUSH SYRINGE 10 ML IV SCH (10:00)
--- NOTE | 2018-09-08 11:05 | Discharge Summary ---
Providers - Providers Date of Admission: 09/02/18 18:41 Date of discharge: 09/08/18 Attending physician: SYDNI SALINAS 09/02/18 15:01 Consult to Mental Health [CONS] Urgent Reason For Exam: psych Place consult to:: psych human resource consultant Notified:: awaiting call back Consult to Physician [CONS] Stat Comment: Consulting Provider: CHELSEA ORTIZ Physician Instructions: Reason For Exam: resp failure 09/02/18 15:02 Consult to Dietitian/Nutrition [CONS] Routine Physician Instructions: Reason For Exam: Reason for Consult: Evaluate nutritional intake 09/02/18 19:55 Consult to Dietitian/Nutrition [CONS] Routine Physician Instructions: Assess nutrtn needs, initiate, modify, manage TF Reason For Exam: Reason for Consult: Write/Manage Tube Feeding Reason for Consult: Write/Manage Tube Feeding Primary care physician: CARLENE OLSEN Hospitalization Reason for admission: worsening shortness of breath/out of hospital cardiac arrest/ s/p CPR Condition: Fair Pertinent studies: CT head CTA chest CT cervical spine Chest x-ray Abdominal x-ray Hospital course: 63-year-old female patient with significant history of COPD chronic respiratory failure was admitted through emergency room with worsening shortness of breath and history of outside the hospital cardiac arrest status post CPR. Patient was admitted symptomatically managed noted to peak in acute on chronic respiratory failure. Patient was evaluated and managed by pulmonary critical consultation medications optimized Patient's symptoms gradually but significantly improved The patient is comfortable no new complaints vital signs stable Case management has set up home oxygen as well as transferred back to personal correction Discharge diagnosis; and management --Acute on chronic hypoxic respiratory failure; Requiring intubation, status post extubation On nebulizers tapering dose of steroids and antibiotics --Acute exacerbation of COPD; significantly improved Home oxygen --Hypertension; well controlled, continue current antihypertensives --History of seizure disorder; no new episodes of seizure Continue antiepileptic medications --Malnutrition moderate; nutrition supplements --Ongoing tobacco use; smoking cessation counseling, nicotine patch as needed --Type 2 diabetes mellitus; Accu-Chek sliding scale coverage and ADA diet insulin as needed --History of depression; continue trazodone and risperidone as needed Disposition: DC/[place]-70 ANOTHER TYPE THCARE Time spent for discharge: 32 min Core Measure Documentation - Palliative Care Palliative Care/ Comfort Measures: Not Applicable - Core Measures Any of the following diagnoses?: none Exam - Constitutional Vitals: Temp Pulse Resp BP Pulse Ox 98.5 F 99 H 20 107/67 96 09/08/18 08:20 09/08/18 09:28 09/08/18 10:00 09/08/18 08:20 09/08/18 10:00 General appearance: Present: no acute distress, well-nourished - EENT Eyes: Present: PERRL, EOM intact - Neck Neck: Present: supple, normal ROM - Respiratory Respiratory effort: normal Respiratory: bilateral: diminished, negative: rales, rhonchi, wheezing - Cardiovascular Rhythm: regular Heart Sounds: Present: S1 & S2 - Extremities Extremities: no ischemia, No edema - Abdominal General gastrointestinal: Present: soft, non-tender, non-distended, normal bowel sounds - Integumentary Integumentary: Present: clear, warm - Musculoskeletal Musculoskeletal: strength equal bilaterally - Psychiatric Psychiatric: appropriate mood/affect, cooperative - Neurologic Neurologic: CNII-XII intact, moves all extremities Plan Activity: advance as tolerated, fall precautions Diet: diabetic, other (cardiac diet) Special Instructions: physical therapy Additional Instructions: Continue nasal cannula oxygen 3 L as needed. Fall precautions Follow up with: MY LARSON MD [Referring] - 3-5 Days CHELSEA ORTIZ MD [Staff Physician] - 7 Days Prescriptions: Fluticasone/Salmeterol [Advair Diskus 100-50 mcg] 1 puff IH BID #1 blst.w.dev Prednisone [predniSONE 10 mg (6-Day Pack, 21 Tabs)] 10 mg PO .TAPER #1 tab.ds.pk
== END 2018-09-08 12:46 | disposition home or self-care (01) | DRG 208 ==
LOC: ED 14:30 → CC1 18:41 → 4A 09-04 16:49
PROVIDERS: ADMIT Internal Medicine; ATTEND Internal Medicine
PROC: 5A1935Z Respiratory Ventilation, Less than 24 Consecutive Hours (ICD-10-PCS; principal; 2018-09-03)
PROC: 0BH17EZ Insertion of Endotracheal Airway into Trachea, Via Natural or Artificial Opening (ICD-10-PCS; 2018-09-03)
PROC: 4A033R1 Measurement of Arterial Saturation, Peripheral, Percutaneous Approach (ICD-10-PCS; 2018-09-03)
PROC: 5A09357 Assistance with Respiratory Ventilation, Less than 24 Consecutive Hours, Continuous Positive Airway Pressure (ICD-10-PCS; 2018-09-03)
DX: J96.22 Acute and chronic respiratory failure with hypercapnia (principal); G92 Toxic encephalopathy; J44.1 Chronic obstructive pulmonary disease with (acute) exacerbation; E44.0 Moderate protein-calorie malnutrition; I10 Essential (primary) hypertension; E11.9 Type 2 diabetes mellitus without complications; F32.9 Major depressive disorder, single episode, unspecified; F20.9 Schizophrenia, unspecified; F17.210 Nicotine dependence, cigarettes, uncomplicated; J96.21 Acute and chronic respiratory failure with hypoxia; F41.1 Generalized anxiety disorder; G40.909 Epilepsy, unspecified, not intractable, without status epilepticus; Z90.49 Acquired absence of other specified parts of digestive tract; Z82.49 Family history of ischemic heart disease and other diseases of the circulatory system; Z88.8 Allergy status to other drugs, medicaments and biological substances; Z79.51 Long term (current) use of inhaled steroids; Z79.4 Long term (current) use of insulin; Z68.23 Body mass index [BMI] 23.0-23.9, adult; Z71.6 Tobacco abuse counseling
CPT/HCPCS: 36415; 36600; 70450; 71045; 71275; 72125; 74018; 80053; 81001; 82140; 82803; 82962; 83036; 83735; 84100; 84134; 84484; 85007; 85025; 85379; 85610; 85730; 87040; 87070; 87086; 87205; 93005; 93010; 94002; 94003; 94640; 94660; 94760; G0378; J0456; J0696; J1650; J1815; J2060; J2250; J2270; J2765; J2920; J2930; J3010; J7030; J7040; J7050; Q9967

== ENCOUNTER 2018-12-09 09:29 | Emergency (ER) | payer MEDICARE ==
[2018-12-09] MEDS ORDERED: IPRATROPIUM 0.02% NEBU 2.5 ML IH ONE (09:58)
[2018-12-09] MEDS ORDERED: methylPREDNISolone Sod Succinate 125 MG/2 ML INJ IV ONE (09:58)
[2018-12-09] MEDS ORDERED: ALBUTEROL 2.5 MG/3 ML NEBU IH ONE (09:58)
[2018-12-09] MEDS ORDERED: SODIUM CHLORIDE 0.9% 500 ML 500 ML IV ONE (09:58)
[2018-12-09] MEDS ORDERED: MAGNESIUM SULFATE 2 GM/50 ML BAG IV ONE (09:58)
[2018-12-09] MEDS ORDERED: ACETAMINOPHEN 500 MG TAB PO ONE (10:00)
--- NOTE | 2018-12-09 10:01 | Emergency Department Report ---
ED Shortness of Breath HPI - General Chief Complaint: Dyspnea/Respdistress Stated Complaint: GILSON Time Seen by Provider: 12/09/18 09:48 Source: patient, EMS ( EMS documentation not available at time of chart dictation ), RN notes reviewed, old records reviewed Mode of arrival: Stretcher Limitations: No Limitations, Physical Limitation - History of Present Illness Initial Comments: Primary care doctor: Dr. Faisal Schumacher Past medical history: COPD, schizophrenia, nicotine dependence, seizure, respiratory failure, diabetes, malnutrition This is a 63-year-old female. I have evaluated this patient in the past. She presents to the ER today with complaint of pain and the shortness of breath. She states it started last night. She associates it dry cough. She also has nontraumatic paralumbar back pain and parathoracic back pain. This is acute on chronic. She denies DVT, pulmonary embolism risk factors. She endorses compliance with medications. MD Complaint: shortness of breath, cough -: Gradual Severity: moderate Quality: aching Consistency: intermittent Improves With: oxygen, rest, bronchodilators, upright position Worsens With: lying flat, exertion Known History Of: COPD - Related Data Home Oxygen Therapy: Yes Home Oxygen Amount: 2 Liters Home Medications Medication Instructions Recorded Confirmed Last Taken ALBUTEROL Inhaler(NF) [VENTOLIN 2 puff IH QID 09/02/18 09/02/18 Unknown Inhaler(NF)] Benztropine [Cogentin] 1 mg PO Q4H PRN 09/02/18 09/02/18 Unknown Dextromethorphan/Benzocaine 1 each PO Q3H PRN MDD 8 doses 09/02/18 09/02/18 Unknown [Cepacol Sorethroat-Cough Sweetie] Insulin Regular, Human [Novolin R] See Protocol SUB-Q ACHS 09/02/18 09/02/18 Unknown Ipratropium/Albuterol Sulfate 1 ampul IH Q6HR 09/02/18 09/02/18 Unknown [DUONEB *Not for PRN Use*] LORazepam [Ativan] 1 mg PO Q8H PRN 09/02/18 09/02/18 Unknown Loperamide [Imodium] 2 mg PO Q3HR PRN 09/02/18 09/02/18 Unknown Loratadine [Claritin] 10 mg PO DAILY 09/02/18 09/02/18 Unknown Mag Hydrox/Aluminum Hyd/Simeth 30 ml PO Q2H PRN MDD 3 doses 09/02/18 09/02/18 Unknown [Antacid Liquid] Magnesium Hydroxide [Milk of 30 ml PO QDAY PRN 09/02/18 09/02/18 Unknown Magnesia] cloNIDine [Catapres] 0.1 mg PO Q8H PRN MDD for BP 09/02/18 09/02/18 Unknown >160/90 lamoTRIgine [LaMICtal] 25 mg PO BID 09/02/18 09/02/18 Unknown levETIRAcetam [Keppra TAB] 1,000 mg PO QDAY 09/02/18 09/02/18 Unknown predniSONE [Deltasone] 10 mg PO QDAY 09/02/18 09/02/18 Unknown risperiDONE [RisperDAL] 3 mg PO BID 09/02/18 09/02/18 Unknown traZODone [Desyrel] 50 mg PO QHS PRN 09/02/18 09/02/18 Unknown Previous Rx's Medication Instructions Recorded Last Taken Type Fluticasone/Salmeterol [Advair 1 puff IH BID #1 blst.w.dev 09/08/18 Unknown Rx Diskus 100-50 mcg] Prednisone [predniSONE 10 mg 10 mg PO .TAPER #1 tab.ds.pk 09/08/18 Unknown Rx (6-Day Pack, 21 Tabs)] Albuterol Sulfate [Albuterol 0.63% 0.63 mg IH Q4HR PRN #2 ml 12/09/18 Unknown Rx NEBS] Albuterol Sulfate [Proair 90 mcg IH Q4HR PRN #2 aer.pow.ba 12/09/18 Unknown Rx Respiclick] Benzonatate [Tessalon Perles] 100 mg PO Q8HR PRN #30 capsule 12/09/18 Unknown Rx Fluticasone [Flonase] 1 spray NS QDAY #1 bottle 12/09/18 Unknown Rx Ipratropium (Nf) [Atrovent] 2 puff IH Q6HR PRN #1 inha 12/09/18 Unknown Rx Ipratropium [Atrovent NEB] 0.5 mg IH Q4HR #2 ml 12/09/18 Unknown Rx Allergies Allergy/AdvReac Type Severity Reaction Status Date / Time epinephrine Allergy Unknown Verified 01/28/18 11:04 haloperidol [From Haldol] Allergy Unknown Verified 01/28/18 11:04 quetiapine [From Seroquel] Allergy Unknown Verified 01/28/18 11:04 ziprasidone [From Geodon] Allergy Unknown Verified 01/28/18 11:04 ED Review of Systems ROS: Stated complaint: GILSON Other details as noted in HPI Eyes: denies: eye discharge ENT: congestion Respiratory: cough, shortness of breath, SOB with exertion, SOB at rest, wheezing Cardiovascular: denies: chest pain, syncope Gastrointestinal: denies: abdominal pain Genitourinary: denies: dysuria Musculoskeletal: back pain Skin: denies: lesions Neurological: weakness Psychiatric: anxiety ED Past Medical Hx - Past Medical History Hx Hypertension: Yes Hx Psychiatric Treatment: Yes (Schizophrenia) Hx COPD: Yes - Surgical History Hx Cholecystectomy: Yes - Social History Smoking Status: Current Every Day Smoker Substance Use Type: None - Medications Home Medications: Home Medications Medication Instructions Recorded Confirmed Last Taken Type ALBUTEROL Inhaler(NF) [VENTOLIN 2 puff IH QID 09/02/18 09/02/18 Unknown History Inhaler(NF)] Benztropine [Cogentin] 1 mg PO Q4H PRN 09/02/18 09/02/18 Unknown History Dextromethorphan/Benzocaine 1 each PO Q3H PRN MDD 8 doses 09/02/18 09/02/18 Unknown History [Cepacol Sorethroat-Cough Sweetie] Insulin Regular, Human [Novolin R] See Protocol SUB-Q ACHS 09/02/18 09/02/18 Unknown History Ipratropium/Albuterol Sulfate 1 ampul IH Q6HR 09/02/18 09/02/18 Unknown History [DUONEB *Not for PRN Use*] LORazepam [Ativan] 1 mg PO Q8H PRN 09/02/18 09/02/18 Unknown History Loperamide [Imodium] 2 mg PO Q3HR PRN 09/02/18 09/02/18 Unknown History Loratadine [Claritin] 10 mg PO DAILY 09/02/18 09/02/18 Unknown History Mag Hydrox/Aluminum Hyd/Simeth 30 ml PO Q2H PRN MDD 3 doses 09/02/18 09/02/18 Unknown History [Antacid Liquid] Magnesium Hydroxide [Milk of 30 ml PO QDAY PRN 09/02/18 09/02/18 Unknown History Magnesia] cloNIDine [Catapres] 0.1 mg PO Q8H PRN MDD for BP 09/02/18 09/02/18 Unknown History >160/90 lamoTRIgine [LaMICtal] 25 mg PO BID 09/02/18 09/02/18 Unknown History levETIRAcetam [Keppra TAB] 1,000 mg PO QDAY 09/02/18 09/02/18 Unknown History predniSONE [Deltasone] 10 mg PO QDAY 09/02/18 09/02/18 Unknown History risperiDONE [RisperDAL] 3 mg PO BID 09/02/18 09/02/18 Unknown History traZODone [Desyrel] 50 mg PO QHS PRN 09/02/18 09/02/18 Unknown History Fluticasone/Salmeterol [Advair 1 puff IH BID #1 blst.w.dev 09/08/18 Unknown Rx Diskus 100-50 mcg] Prednisone [predniSONE 10 mg 10 mg PO .TAPER #1 tab.ds.pk 09/08/18 Unknown Rx (6-Day Pack, 21 Tabs)] Albuterol Sulfate [Albuterol 0.63% 0.63 mg IH Q4HR PRN #2 ml 12/09/18 Unknown Rx NEBS] Albuterol Sulfate [Proair 90 mcg IH Q4HR PRN #2 aer.pow.ba 12/09/18 Unknown Rx Respiclick] Benzonatate [Tessalon Perles] 100 mg PO Q8HR PRN #30 capsule 12/09/18 Unknown Rx Fluticasone [Flonase] 1 spray NS QDAY #1 bottle 12/09/18 Unknown Rx Ipratropium (Nf) [Atrovent] 2 puff IH Q6HR PRN #1 inha 12/09/18 Unknown Rx Ipratropium [Atrovent NEB] 0.5 mg IH Q4HR #2 ml 12/09/18 Unknown Rx ED Physical Exam - General Limitations: No Limitations General appearance: alert - Head Head exam: Present: atraumatic, normocephalic - Eye Eye exam: Present: normal appearance, EOMI. Absent: nystagmus - ENT ENT exam: Present: normal exam, normal orophraynx, mucous membranes moist, normal external ear exam - Neck Neck exam: Present: normal inspection, full ROM. Absent: tenderness, meningismus - Respiratory Respiratory exam: Present: rhonchi (very faint rhonchi appreciated), decreased breath sounds. Absent: wheezes, rales, stridor - Cardiovascular Cardiovascular Exam: Present: normal rhythm, tachycardia, normal heart sounds. Absent: systolic murmur, diastolic murmur, rubs, gallop - GI/Abdominal GI/Abdominal exam: Present: soft. Absent: distended, tenderness, guarding, rebound, rigid, pulsatile mass - Extremities Exam Extremities exam: Present: normal inspection, full ROM, other (2+ pulses noted in the bilateral upper, lower extremities. There is no long bone tenderness. Musculoskeletal compartments are soft. The pelvis is stable.). Absent: pedal edema, joint swelling, calf tenderness - Back Exam Back exam: Present: normal inspection, full ROM, paraspinal tenderness. Absent: CVA tenderness (R), CVA tenderness (L) - Neurological Exam Neurological exam: Present: alert, other (there is no facial droop. The tongue is midline. Extraocular movements are intact bilaterally. Patient speaking in full complete sentences. Shoulder shrug is intact bilaterally. Hearing is grossly intact bilaterally. Visual acuity intact to finger counting and color perception at a close distance. 5/5 strength 4 extremities. Sensation intact to light touch in 4 extremities.) - Psychiatric Psychiatric exam: Present: flat affect - Skin Skin exam: Present: warm, dry, intact, normal color. Absent: rash ED Course Vital Signs 12/09/18 12/09/18 12/09/18 09:34 10:28 10:43 Temperature 98.5 F Pulse Rate 110 H Pulse Rate [ Bilateral] Respiratory 22 18 19 Rate Respiratory Rate [Bilateral ] Blood Pressure 108/65 O2 Sat by Pulse 91 98 Oximetry 12/09/18 12/09/18 12/09/18 10:46 11:00 11:16 Temperature Pulse Rate 79 84 83 Pulse Rate [ Bilateral] Respiratory 18 16 15 Rate Respiratory Rate [Bilateral ] Blood Pressure 93/55 98/55 107/59 O2 Sat by Pulse 95 88 94 Oximetry 12/09/18 12/09/18 11:30 11:50 Temperature Pulse Rate 89 Pulse Rate [ 93 H Bilateral] Respiratory 14 Rate Respiratory 20 Rate [Bilateral ] Blood Pressure 104/53 O2 Sat by Pulse 87 Oximetry - Reevaluation(s) Reevaluation #1: 12/09/18 10:43 Differential diagnosis, including but not limited to: COPD, pneumonia, bronchitis, chronic respiratory failure, pulmonary embolism Assessment and plan: 63-year-old female with probable expected progression of underlying COPD. She is afebrile, initially blood pressure in the 90s, initially tachycardic, chronically hypoxic. Endorses no DVT or pulmonary embolus risk factors. We'll treat her symptoms, she is reproducible muscular skeletal back pain, I rule this patient out for pulmonary embolism in August of this year, however, d-dimer is pending. We'll reassess after data points have resulted. She appears quite comfortable at this time. There is no pulsatile abdominal mass, she was 4 extremities spontaneously, she endorses compliance with her chronic medications, and has no indication of epidural compression syndrome at this time. Reevaluation #2: 12/09/18 11:57 Laboratory studies unremarkable. Patient has completed some but not all of her breathing treatment. She does not want to hold it up in front of her face. She does not want the mask in front of her face. She is walking around the ER without difficulty. She is making multiple requests to eat. Her vital signs have normalized. She is not interested in a tobacco cessation program. Patient is counseled to discontinue tobacco consumption, to continue albuterol, Atrovent and steroids, she'll need to follow-up with her outpatient primary care doctor or sheet rock applicator. She is not acutely psychotic at this time, and she exhibits decision making capacity at this time. Reevaluation #3: 12/09/18 13:39 Multiple requests made for food. Patient eating in her stretcher, and does not appear to be in any acute distress. ED Medical Decision Making - Lab Data Result diagrams: 12/09/18 10:07 12/09/18 10:07 Vital Signs 12/09/18 12/09/18 09:34 10:28 Temperature 98.5 F Pulse Rate 110 H Respiratory 22 18 Rate Blood Pressure 108/65 O2 Sat by Pulse 91 98 Oximetry Lab Results 12/09/18 12/09/18 12/09/18 Range/Units 10:07 10:07 10:07 WBC 8.9 (4.5-11.0) K/mm3 RBC 4.44 (3.65-5.03) M/mm3 Hgb 14.0 (10.1-14.3) gm/dl Hct 41.8 (30.3-42.9) % MCV 94 (79-97) fl MCH 32 (28-32) pg MCHC 33 (30-34) % RDW 13.3 (13.2-15.2) % Plt Count 197 (140-440) K/mm3 PT 13.3 (12.2-14.9) Sec. INR 1.04 (0.87-1.13) APTT 23.6 L (24.2-36.6) Sec. Sodium 140 (137-145) mmol/L Potassium 3.0 L (3.6-5.0) mmol/L Chloride 101.3 (98-107) mmol/L Carbon Dioxide 22 (22-30) mmol/L Anion Gap 20 mmol/L BUN 11 (7-17) mg/dL Creatinine 0.8 (0.7-1.2) mg/dL Estimated GFR > 60 ml/min BUN/Creatinine Ratio 14 % Glucose 99 (65-100) mg/dL Calcium 8.8 (8.4-10.2) mg/dL Magnesium (1.7-2.3) mg/dL Total Creatine Kinase (30-135) units/L 12/09/18 12/09/18 Range/Units 10:07 10:07 WBC (4.5-11.0) K/mm3 RBC (3.65-5.03) M/mm3 Hgb (10.1-14.3) gm/dl Hct (30.3-42.9) % MCV (79-97) fl MCH (28-32) pg MCHC (30-34) % RDW (13.2-15.2) % Plt Count (140-440) K/mm3 PT (12.2-14.9) Sec. INR (0.87-1.13) APTT (24.2-36.6) Sec. Sodium (137-145) mmol/L Potassium (3.6-5.0) mmol/L Chloride (98-107) mmol/L Carbon Dioxide (22-30) mmol/L Anion Gap mmol/L BUN (7-17) mg/dL Creatinine (0.7-1.2) mg/dL Estimated GFR ml/min BUN/Creatinine Ratio % Glucose (65-100) mg/dL Calcium (8.4-10.2) mg/dL Magnesium 1.80 (1.7-2.3) mg/dL Total Creatine Kinase 51 (30-135) units/L - EKG Data -: EKG Interpreted by Me EKG shows normal: sinus rhythm Rate: normal - EKG Data 12/09/18 10:42 This EKG is unchanged from prior EKG. It shows a sinus rhythm, 96 bpm, normal axis, QTC is 471 ms, the EKG is unchanged from prior, the EKG is not consistent with ST elevation myocardial infarction. - Radiology Data Radiology results: report reviewed, image reviewed interpreted by me: X-ray the chest shows no acute disease, hyperinflated lungs, chronic findings noted nt Report Referring Physician: ANGELA BEST Patient Name: DAPHNE SOLARES Date of : 1955 Sex: Female Report Date: 2018-12-09 Report Status: Finalized Findings [address] [address] XRay Report Signed Patient: DAPHNE SOLARES MR#: [id number] : 1955 Acct:[id number] Age/Sex: 63 / F ADM Date: 12/09/18 Loc: ED Attending Dr: Ordering Physician: ANGELA BEST MD Date of Service: 12/09/18 Procedure(s): XR chest 1V ap Accession Number(s): [id number] cc: ANGELA BEST MD Fluoro Time In Minutes: CHEST 1 VIEW INDICATION: Dyspnea. COMPARISON: 09/03/2018 FINDINGS: Support devices: None. Endotracheal tube has been removed since the previous exam. Heart: Within normal limits. Lungs/Pleura: No acute air space or interstitial disease. Additional findings: None. IMPRESSION: No acute findings. Signer Name: Pablito Chen Jr, MD Signed: 12/09/2018 10:35 AM Workstation Name: [id number] Transcribed By: TTR Dictated By: PABLITO CHEN JR, MD Electronically Authenticated By: PABLITO CHEN JR, MD Signed Date/Time: 12/09/18 1035 Critical care attestation.: If time is entered above; I have spent that time in minutes in the direct care of this critically ill patient, excluding procedure time. ED Disposition Clinical Impression: COPD (chronic obstructive pulmonary disease), Nicotine dependence Disposition: DC-01 TO HOME OR SELFCARE Is pt being admited?: No Does the pt Need Aspirin: No Condition: Stable Instructions: Chronic Obstructive Pulmonary Disease (ED) Additional Instructions: Recommend that patient stopped smoking cigarettes. marine oil terminal superintendent consumption of cigarettes may cause addiction, disability, loss of quality of life, worsening pulmonary function. Recommend patient use her home oxygen as her primary care doctor or lung specialists have advised her to, to take debriding medication for the next 5 days as directed, steroids as directed. Follow-up with your primary care doctor or a complaint specialist within the next 5-7 days. Return to the emergency room right away with new, worsened or different symptoms, or symptoms not present on the initial emergency room evaluation. Prescriptions: Albuterol Sulfate [Albuterol 0.63% NEBS] 0.63 mg IH Q4HR PRN #2 ml PRN Reason: Wheezing Ipratropium (Nf) [Atrovent] 2 puff IH Q6HR PRN #1 inha PRN Reason: Cough Ipratropium [Atrovent NEB] 0.5 mg IH Q4HR #2 ml Fluticasone [Flonase] 1 spray NS QDAY #1 bottle Albuterol Sulfate [Proair Respiclick] 90 mcg IH Q4HR PRN #2 aer.pow.ba PRN Reason: Wheezing Benzonatate [Tessalon Perles] 100 mg PO Q8HR PRN #30 capsule PRN Reason: Cough Referrals: JANE SCHUMACHER MD [Staff Physician] - 3-5 Days KRISTIE GU MD [Staff Physician] - 3-5 Days
[2018-12-09 10:37] LABS: Hematocrit 41.8 % (30.3-42.9); Mean Corpuscular HGB Conc 33 % (30-34); Mean Corpuscular Volume 94 fl (79-97); Platelet Count 197 K/mm3 (140-440); Red Blood Count 4.44 M/mm3 (3.65-5.03); Red Cell Distribution Width 13.3 % (13.2-15.2)
[2018-12-09 10:38] LABS: INR 1.04 (0.87-1.13)
[2018-12-09 10:39] LABS: Partial Thromboplastin Time 23.6 Sec. (24.2-36.6)
--- NOTE | 2018-12-09 10:40 | XRay Report ---
CHEST 1 VIEW INDICATION: Dyspnea. COMPARISON: 09/03/2018 FINDINGS: Support devices: None. Endotracheal tube has been removed since the previous exam. Heart: Within normal limits. Lungs/Pleura: No acute air space or interstitial disease. Additional findings: None. IMPRESSION: No acute findings. Signer Name: Pablito Chen Jr, MD Signed: 12/09/2018 10:35 AM Workstation Name: [id number]
[2018-12-09 10:41] LABS: BUN/Creatinine Ratio 14; Blood Urea Nitrogen 11 mg/dL (7-17); Calcium 8.8 mg/dL (8.4-10.2); Hemolysis Index 6
[2018-12-09 15:04] VITALS: BP 118/79
== END 2018-12-09 14:30 | disposition home or self-care (01) ==
LOC: ED 09:29
DX: J44.9 Chronic obstructive pulmonary disease, unspecified (principal); I10 Essential (primary) hypertension; F20.9 Schizophrenia, unspecified; F17.200 Nicotine dependence, unspecified, uncomplicated; Z90.49 Acquired absence of other specified parts of digestive tract; Z79.899 Other long term (current) drug therapy; Z88.8 Allergy status to other drugs, medicaments and biological substances
CPT/HCPCS: 36415; 71045; 80048; 82550; 83735; 85027; 85379; 85610; 85730; 93005; 93010; 94644; 96365; 96375; 99285; J2930; J3475; J7040

== ENCOUNTER 2019-01-28 08:38 | Emergency (ER) | payer MEDICARE ==
[2019-01-28] MEDS ORDERED: IPRATROPIUM 0.02% NEBU 2.5 ML IH ONE ×2 (09:23→11:13)
[2019-01-28] MEDS ORDERED: ALBUTEROL 2.5 MG/3 ML NEBU IH ONE ×2 (09:23→11:13)
[2019-01-28] MEDS ORDERED: predniSONE 20 MG TAB PO ONE (09:25)
--- NOTE | 2019-01-28 09:28 | Emergency Department Report ---
HPI - General Chief Complaint: Dyspnea/Respdistress Time Seen by Provider: 01/28/19 09:14 - HPI HPI: Room 8 The patient is a 63-year-old female presenting with a chief complaint of shortness of breath. The patient states she's had a cough productive of yellow sputum for 4 weeks. The patient states for one week she's had shortness of breath and a dry mouth. Patient states she is uncertain if she's had a fever. Patient missed a headache and rhinorrhea. Location: [See above] Duration: [See above] Quality: [See above] Severity: [See above] Timing: [See above] Context: [See above] Modifying factors: [See above] Associated signs and symptoms: [see above] ED Past Medical Hx - Past Medical History Previous Medical History?: Yes Hx Hypertension: Yes Hx Seizures: Yes Hx Psychiatric Treatment: Yes (Schizophrenia, depression, bipolar) Hx COPD: Yes (home O2 3.5 L) - Surgical History Past Surgical History?: No Hx Cholecystectomy: Yes - Family History Family history: no significant - Social History Smoking Status: Current Every Day Smoker (1/7 pack per day) Substance Use Type: Alcohol - Medications Home Medications: Home Medications Medication Instructions Recorded Confirmed Last Taken Type ALBUTEROL Inhaler(NF) [VENTOLIN 2 puff IH QID 09/02/18 09/02/18 Unknown History Inhaler(NF)] Benztropine [Cogentin] 1 mg PO Q4H PRN 09/02/18 09/02/18 Unknown History Dextromethorphan/Benzocaine 1 each PO Q3H PRN MDD 8 doses 09/02/18 09/02/18 Unknown History [Cepacol Sorethroat-Cough Sweetie] Insulin Regular, Human [Novolin R] See Protocol SUB-Q ACHS 09/02/18 09/02/18 Unknown History Ipratropium/Albuterol Sulfate 1 ampul IH Q6HR 09/02/18 09/02/18 Unknown History [DUONEB *Not for PRN Use*] LORazepam [Ativan] 1 mg PO Q8H PRN 09/02/18 09/02/18 Unknown History Loperamide [Imodium] 2 mg PO Q3HR PRN 09/02/18 09/02/18 Unknown History Loratadine [Claritin] 10 mg PO DAILY 09/02/18 09/02/18 Unknown History Mag Hydrox/Aluminum Hyd/Simeth 30 ml PO Q2H PRN MDD 3 doses 09/02/18 09/02/18 Unknown History [Antacid Liquid] Magnesium Hydroxide [Milk of 30 ml PO QDAY PRN 09/02/18 09/02/18 Unknown History Magnesia] cloNIDine [Catapres] 0.1 mg PO Q8H PRN MDD for BP 09/02/18 09/02/18 Unknown History >160/90 lamoTRIgine [LaMICtal] 25 mg PO BID 09/02/18 09/02/18 Unknown History levETIRAcetam [Keppra TAB] 1,000 mg PO QDAY 09/02/18 09/02/18 Unknown History predniSONE [Deltasone] 10 mg PO QDAY 09/02/18 09/02/18 Unknown History risperiDONE [RisperDAL] 3 mg PO BID 09/02/18 09/02/18 Unknown History traZODone [Desyrel] 50 mg PO QHS PRN 09/02/18 09/02/18 Unknown History Fluticasone/Salmeterol [Advair 1 puff IH BID #1 blst.w.dev 09/08/18 Unknown Rx Diskus 100-50 mcg] Prednisone [predniSONE 10 mg 10 mg PO .TAPER #1 tab.ds.pk 09/08/18 Unknown Rx (6-Day Pack, 21 Tabs)] Albuterol Sulfate [Albuterol 0.63% 0.63 mg IH Q4HR PRN #2 ml 12/09/18 Unknown Rx NEBS] Albuterol Sulfate [Proair 90 mcg IH Q4HR PRN #2 aer.pow.ba 12/09/18 Unknown Rx Respiclick] Benzonatate [Tessalon Perles] 100 mg PO Q8HR PRN #30 capsule 12/09/18 Unknown Rx Fluticasone [Flonase] 1 spray NS QDAY #1 bottle 12/09/18 Unknown Rx Ipratropium (Nf) [Atrovent] 2 puff IH Q6HR PRN #1 inha 12/09/18 Unknown Rx Ipratropium [Atrovent NEB] 0.5 mg IH Q4HR #2 ml 12/09/18 Unknown Rx ALBUTEROL Inhaler (OR & NICU) 2 puff IH QID PRN #8.5 gram 01/28/19 Unknown Rx [ProAir HFA Inhaler] Azithromycin [Zithromax Z-MARKEL] 0 mg PO DAILY #6 tab 01/28/19 Unknown Rx Benzonatate [Tessalon Perles] 100 mg PO Q8HR #30 capsule 01/28/19 Unknown Rx Prednisone [predniSONE 10 mg 10 mg PO .TAPER #1 tab.ds.pk 01/28/19 Unknown Rx (6-Day Pack, 21 Tabs)] ED Review of Systems ROS: Stated complaint: COPD/GILSON Other details as noted in HPI Constitutional: fever (?) Eyes: denies: eye pain ENT: other (rhinorrhea) Respiratory: cough, shortness of breath Cardiovascular: denies: chest pain Endocrine: no symptoms reported Gastrointestinal: denies: abdominal pain Genitourinary: denies: dysuria Musculoskeletal: denies: back pain Neurological: headache Physical Exam - Physical Exam Vital Signs: Vital Signs 01/28/19 01/28/19 09:07 09:11 Temperature 98 F Pulse Rate 93 H Respiratory 22 22 Rate Blood Pressure 139/79 [Left] O2 Sat by Pulse 97 97 Oximetry Physical Exam: GENERAL: The patient is well-developed well-nourished female lying on stretcher sleeping not appearing to be in acute distress. [] HEENT: Normocephalic. Atraumatic. Extraocular motions are intact. Patient has moist mucous membranes. NECK: Supple. Trachea midline CHEST/LUNGS: Faint wheezing diffusely. There is no respiratory distress noted. HEART/CARDIOVASCULAR: Regular. There is no tachycardia. There is no gallop rub or murmur. ABDOMEN: Abdomen is soft, nontender. Patient has normal bowel sounds. There is no abdominal distention. SKIN: There is no rash. There is no edema. There is no diaphoresis. NEURO: The patient is awake, alert, and oriented. The patient is cooperative. The patient has normal speech MUSCULOSKELETAL: There is no evidence of acute injury. ED Course Vital Signs 01/28/19 01/28/19 09:07 09:11 Temperature 98 F Pulse Rate 93 H Respiratory 22 22 Rate Blood Pressure 139/79 [Left] O2 Sat by Pulse 97 97 Oximetry - Reevaluation(s) Reevaluation #1: 01/28/19 11:14 Patient states the nebulizer helped her "a little bit." Patient still has faint expiratory wheezing bilaterally. Respiratory called to administer another neb Reevaluation #2: 01/28/19 13:08 Patient resting comfortably. Lungs clear to auscultation bilaterally ED Medical Decision Making - Lab Data Result diagrams: 01/28/19 09:48 01/28/19 09:48 Laboratory Tests 01/28/19 01/28/19 09:48 09:48 WBC 6.2 RBC 4.28 Hgb 13.5 Hct 40.0 MCV 94 MCH 32 MCHC 34 RDW 13.5 Lymph % (Auto) 9.1 L [place] % (Auto) 8.4 H Eos % (Auto) 3.6 Baso % (Auto) 0.4 Lymph # 0.6 L [place] # 0.5 Eos # 0.2 Baso # 0.0 Seg Neutrophils % 78.5 H Seg Neutrophils # 4.9 Sodium 139 Potassium 3.9 Chloride 99.5 Carbon Dioxide 25 Anion Gap 18 BUN 8 Creatinine 0.9 Estimated GFR > 60 BUN/Creatinine Ratio 9 Glucose 104 H Calcium 9.3 Total Creatine Kinase 85 CK-MB (CK-2) 8.4 H CK-MB (CK-2) Rel Index 9.8 H Troponin T < 0.010 NT-Pro-B Natriuret Pep 336.6 - Radiology Data Radiology results: report reviewed (chest x-ray), image reviewed (chest x-ray) interpreted by me: Chest x-ray with no focal infiltrate, no pneumothorax [address] [address] XRay Report Signed Patient: DAPHNE SOLARES MR#: [id number] : 1955 Acct:[id number] Age/Sex: 63 / F ADM Date: 01/28/19 Loc: ED Attending Dr: Ordering Physician: ROSALINDA CONDE MD Date of Service: 01/28/19 Procedure(s): XR chest 1V ap Accession Number(s): [id number] cc: ROSALINDA CONDE MD Fluoro Time In Minutes: CHEST 1 VIEW 01/28/2019 9:28 AM INDICATION / CLINICAL INFORMATION: shortness of breath, productive cough. COMPARISON: 12/09/2018. FINDINGS: SUPPORT DEVICES: None. HEART / MEDIASTINUM: Normal heart size. Atherosclerosis in the thoracic aorta. LUNGS / PLEURA: No significant pulmonary or pleural abnormality. No pneumothorax. ADDITIONAL FINDINGS: No significant additional findings. IMPRESSION: 1. No acute findings. Signer Name: Rhett Castro MD Signed: 01/28/2019 10:08 AM Workstation Name: [id number] Transcribed By: MANUEL Dictated By: Rhett Castro MD Electronically Authenticated By: Rhett Castro MD Signed Date/Time: 01/28/19 100 DD/ 07 TD/TT: - Differential Diagnosis COPD exacerbation, pneumonia, bronchitis, CHF Critical care attestation.: If time is entered above; I have spent that time in minutes in the direct care of this critically ill patient, excluding procedure time. ED Disposition Clinical Impression: Shortness of breath, COPD exacerbation, Bronchitis Disposition: TO HOME OR SELFCARE Is pt being admited?: No Does the pt Need Aspirin: No Condition: Stable Instructions: Chronic Obstructive Pulmonary Disease (ED), Chronic Bronchitis (ED) Additional Instructions: Return to the emergency department should you develop worsening symptoms, inability to tolerate food or liquids, high fever or any other concerns Prescriptions: Prednisone [predniSONE 10 mg (6-Day Pack, 21 Tabs)] 10 mg PO .TAPER #1 tab.ds.pk ALBUTEROL Inhaler (OR & NICU) [ProAir HFA Inhaler] 2 puff IH QID PRN #8.5 gram PRN Reason: Shortness Of Breath Benzonatate [Tessalon Perles] 100 mg PO Q8HR #30 capsule Azithromycin [Zithromax Z-MARKEL] 0 mg PO DAILY #6 tab Referrals: PRIMARY MD LORI [Primary Care Provider] - 3-5 Days NATANAEL DENNIS MD [Staff Physician] - 3-5 Days Time of Disposition: 13:11
[2019-01-28 10:02] LABS: Basophils % (Auto) 0.4 % (0.0-1.8); Eosinophils # (Auto) 0.2 K/mm3 (0.0-0.4); Eosinophils % (Auto) 3.6 % (0.0-4.3); Hemoglobin 13.5 gm/dl (10.1-14.3); Lymphocytes # (Auto) 0.6 K/mm3 (1.2-5.4); Lymphocytes % (Auto) 9.1 % (13.4-35.0); Mean Corpuscular HGB Conc 34 % (30-34); Mean Corpuscular Volume 94 fl (79-97); Monocytes # (Auto) 0.5 K/mm3 (0.0-0.8); Monocytes % (Auto) 8.4 % (0.0-7.3); Red Blood Count 4.28 M/mm3 (3.65-5.03); Red Cell Distribution Width 13.5 % (13.2-15.2)
--- NOTE | 2019-01-28 10:13 | XRay Report ---
CHEST 1 VIEW 01/28/2019 9:28 AM INDICATION / CLINICAL INFORMATION: shortness of breath, productive cough. COMPARISON: 12/09/2018. FINDINGS: SUPPORT DEVICES: None. HEART / MEDIASTINUM: Normal heart size. Atherosclerosis in the thoracic aorta. LUNGS / PLEURA: No significant pulmonary or pleural abnormality. No pneumothorax. ADDITIONAL FINDINGS: No significant additional findings. IMPRESSION: 1. No acute findings. Signer Name: Rhett Castro MD Signed: 01/28/2019 10:08 AM Workstation Name: [id number]
[2019-01-28 10:52] LABS: Creatine Kinase MB 8.4 ng/mL (0.0-4.0)
[2019-01-28 10:54] LABS: BUN/Creatinine Ratio 9; Blood Urea Nitrogen 8 mg/dL (7-17); Calcium 9.3 mg/dL (8.4-10.2); Hemolysis Index 23
[2019-01-28 11:10] LABS: Platelet Count 193 K/mm3 (140-440)
[2019-01-28 14:54] VITALS: BP 135/79
== END 2019-01-28 14:55 | disposition home or self-care (01) ==
LOC: ED 08:38
DX: J44.1 Chronic obstructive pulmonary disease with (acute) exacerbation (principal); J40 Bronchitis, not specified as acute or chronic; I10 Essential (primary) hypertension; F25.0 Schizoaffective disorder, bipolar type; F17.200 Nicotine dependence, unspecified, uncomplicated; F10.10 Alcohol abuse, uncomplicated; Z79.899 Other long term (current) drug therapy; Z90.49 Acquired absence of other specified parts of digestive tract; Z88.8 Allergy status to other drugs, medicaments and biological substances
CPT/HCPCS: 36415; 71045; 80048; 82550; 82553; 83880; 84484; 85025; 87040; 94640; 99284; J7512; 94644

== ENCOUNTER 2019-02-26 16:32 | Emergency (ER) | payer MEDICARE ==
[2019-02-26 16:54] VITALS: BP 123/81
--- NOTE | 2019-02-26 16:57 | Emergency Department Report ---
Blank Doc - Documentation Documentation: 63-year-old female that presents with needed oxygen tank. Patient was dischar ged without oxygen tank from different facility. Stated oxygen tank is coming in 2 days. Patient otherwise denies symptoms. Patient is with her caregiver. Patient and caregiver stated that they do not want to wait for social media strategist. Patient was educated about my concerns and receiving the oxygen tank but patient refused and signed against medical advice. This initial assessment/diagnostic orders/clinical plan/treatment(s) is/are subject to change based on patient's health status, clinical progression and re- assessment by fellow clinical providers in the ED. Further treatment and workup at subsequent clinical providers discretion. Patient/guardians urged not to elope from the ED as their condition may be serious if not clinically assessed and managed. Initial orders include: 1- Patient sent to [facility] for further evaluation and treatment 2- social media strategist to be consulted Patient signed AMA form, even after medical education of my concerns if not fully examined and received the oxygen tank.
== END 2019-02-26 19:10 | disposition left against medical advice (07) ==
LOC: ED 16:32
DX: Z99.81 Dependence on supplemental oxygen (principal)

== ENCOUNTER 2019-09-12 13:02 | Emergency (ER) | payer MEDICARE ==
--- NOTE | 2019-09-12 16:39 | Emergency Department Report ---
ED Psych HPI - General Chief Complaint: Psych Stated Complaint: MH Time Seen by Provider: 09/12/19 16:15 Source: patient, EMS Mode of arrival: Ambulatory - History of Present Illness Initial Comments: Patient is 64-year-old female with history of schizophrenia, bipolar disorder a nd COPD, on oxygen at home. Patient presented to the ER stating that she is suicidal. Patient stated that she is hearing voices asking her to kill herself. Patient stated that she had previous attempt with medication overdose. Patient stated that she is depressed because she has been kept alone in her home by her daughter and she is afraid that something is what happened to her. Patient denied any fever or chills. No nausea or vomiting. Patient stated that she is having her regular shortness of breath secondary to her COPD. Patient denied any chest pain, nausea or vomiting. MD Complaint: suicidal ideation, feels depressed - Related Data Home Medications Medication Instructions Recorded Confirmed Last Taken ALBUTEROL Inhaler(NF) [VENTOLIN 2 puff IH QID 09/02/18 09/02/18 Unknown Inhaler(NF)] Benztropine [Cogentin] 1 mg PO Q4H PRN 09/02/18 09/02/18 Unknown Dextromethorphan/Benzocaine 1 each PO Q3H PRN MDD 8 doses 09/02/18 09/02/18 Unknown [Cepacol Sore Throat-Cough Sweetie] Insulin Regular, Human [Novolin R] See Protocol SUB-Q ACHS 09/02/18 09/02/18 Unknown Ipratropium/Albuterol Sulfate 1 ampul IH Q6HR 09/02/18 09/02/18 Unknown [DUONEB *Not for PRN Use*] LORazepam [Ativan] 1 mg PO Q8H PRN 09/02/18 09/02/18 Unknown Loperamide [Imodium] 2 mg PO Q3HR PRN 09/02/18 09/02/18 Unknown Loratadine (Nf) [Claritin (Nf)] 10 mg PO DAILY 09/02/18 09/02/18 Unknown Mag Hydrox/Aluminum Hyd/Simeth 30 ml PO Q2H PRN MDD 3 doses 09/02/18 09/02/18 Unknown [Antacid Liquid] Magnesium Hydroxide [Milk of 30 ml PO QDAY PRN 09/02/18 09/02/18 Unknown Magnesia] cloNIDine [Catapres] 0.1 mg PO Q8H PRN MDD for BP 09/02/18 09/02/18 Unknown >160/90 lamoTRIgine [LaMICtal] 25 mg PO BID 09/02/18 09/02/18 Unknown levETIRAcetam [Keppra TAB] 1,000 mg PO QDAY 09/02/18 09/02/18 Unknown predniSONE [Deltasone] 10 mg PO QDAY 09/02/18 09/02/18 Unknown risperiDONE [RisperDAL] 3 mg PO BID 09/02/18 09/02/18 Unknown traZODone [Desyrel] 50 mg PO QHS PRN 09/02/18 09/02/18 Unknown Previous Rx's Medication Instructions Recorded Last Taken Type Fluticasone/Salmeterol [Advair 1 puff IH BID #1 blst.w.dev 09/08/18 Unknown Rx Diskus 100-50 mcg] Prednisone [predniSONE 10 mg 10 mg PO .TAPER #1 tab.ds.pk 09/08/18 Unknown Rx (6-Day Pack, 21 Tabs)] Albuterol Sulfate [Albuterol 0.63% 0.63 mg IH Q4HR PRN #2 ml 12/09/18 Unknown Rx NEBS] Albuterol Sulfate [Proair 90 mcg IH Q4HR PRN #2 aer.pow.ba 12/09/18 Unknown Rx Respiclick] Benzonatate [Tessalon Perles] 100 mg PO Q8HR PRN #30 capsule 12/09/18 Unknown Rx Fluticasone [Flonase] 1 spray NS QDAY #1 bottle 12/09/18 Unknown Rx Ipratropium (Nf) [Atrovent] 2 puff IH Q6HR PRN #1 inha 12/09/18 Unknown Rx Ipratropium [Atrovent NEB] 0.5 mg IH Q4HR #2 ml 12/09/18 Unknown Rx Albuterol INH(or & Nicu Only) 2 puff IH QID PRN #8.5 gram 01/28/19 Unknown Rx [ProAir HFA Inhaler] Azithromycin [Zithromax Z-MARKEL] 0 mg PO DAILY #6 tab 01/28/19 Unknown Rx Benzonatate [Tessalon Perles] 100 mg PO Q8HR #30 capsule 01/28/19 Unknown Rx Prednisone [predniSONE 10 mg 10 mg PO .TAPER #1 tab.ds.pk 01/28/19 Unknown Rx (6-Day Pack, 21 Tabs)] Allergies Allergy/AdvReac Type Severity Reaction Status Date / Time benztropine [From Cogentin] Allergy Unknown Verified 09/12/19 13:06 bupropion [From Wellbutrin] Allergy Unknown Verified 09/12/19 13:06 epinephrine Allergy Unknown Verified 01/28/18 11:04 haloperidol [From Haldol] Allergy Unknown Verified 01/28/18 11:04 quetiapine [From Seroquel] Allergy Unknown Verified 01/28/18 11:04 terbinafine [From Lamisil] Allergy Unknown Verified 09/12/19 13:06 ziprasidone [From Geodon] Allergy Unknown Verified 01/28/18 11:04 ED Review of Systems ROS: Stated complaint: MH Other details as noted in HPI Comment: All other systems reviewed and negative Constitutional: denies: chills, fever Respiratory: shortness of breath, SOB with exertion, SOB at rest, wheezing. denies: cough, orthopnea Cardiovascular: denies: chest pain, palpitations Gastrointestinal: denies: abdominal pain, nausea, vomiting Neurological: denies: headache, weakness Psychiatric: depression, auditory hallucinations, visual hallucinations. denies: homicidal thoughts, suicidal thoughts ED Past Medical Hx - Past Medical History Previous Medical History?: Yes Hx Hypertension: Yes Hx Seizures: Yes Hx Psychiatric Treatment: Yes (Schizophrenia, depression, bipolar) Hx COPD: Yes (home O2 3.5 L) Additional medical history: brain tumor?? - Surgical History Past Surgical History?: Yes Hx Cholecystectomy: Yes - Social History Smoking Status: Current Some Day Smoker Substance Use Type: None - Medications Home Medications: Home Medications Medication Instructions Recorded Confirmed Last Taken Type ALBUTEROL Inhaler(NF) [VENTOLIN 2 puff IH QID 09/02/18 09/02/18 Unknown History Inhaler(NF)] Benztropine [Cogentin] 1 mg PO Q4H PRN 09/02/18 09/02/18 Unknown History Dextromethorphan/Benzocaine 1 each PO Q3H PRN MDD 8 doses 09/02/18 09/02/18 Unknown History [Cepacol Sore Throat-Cough Sweetie] Insulin Regular, Human [Novolin R] See Protocol SUB-Q ACHS 09/02/18 09/02/18 Unknown History Ipratropium/Albuterol Sulfate 1 ampul IH Q6HR 09/02/18 09/02/18 Unknown History [DUONEB *Not for PRN Use*] LORazepam [Ativan] 1 mg PO Q8H PRN 09/02/18 09/02/18 Unknown History Loperamide [Imodium] 2 mg PO Q3HR PRN 09/02/18 09/02/18 Unknown History Loratadine (Nf) [Claritin (Nf)] 10 mg PO DAILY 09/02/18 09/02/18 Unknown History Mag Hydrox/Aluminum Hyd/Simeth 30 ml PO Q2H PRN MDD 3 doses 09/02/18 09/02/18 Unknown History [Antacid Liquid] Magnesium Hydroxide [Milk of 30 ml PO QDAY PRN 09/02/18 09/02/18 Unknown History Magnesia] cloNIDine [Catapres] 0.1 mg PO Q8H PRN MDD for BP 09/02/18 09/02/18 Unknown History >160/90 lamoTRIgine [LaMICtal] 25 mg PO BID 09/02/18 09/02/18 Unknown History levETIRAcetam [Keppra TAB] 1,000 mg PO QDAY 09/02/18 09/02/18 Unknown History predniSONE [Deltasone] 10 mg PO QDAY 09/02/18 09/02/18 Unknown History risperiDONE [RisperDAL] 3 mg PO BID 09/02/18 09/02/18 Unknown History traZODone [Desyrel] 50 mg PO QHS PRN 09/02/18 09/02/18 Unknown History Fluticasone/Salmeterol [Advair 1 puff IH BID #1 blst.w.dev 09/08/18 Unknown Rx Diskus 100-50 mcg] Prednisone [predniSONE 10 mg 10 mg PO .TAPER #1 tab.ds.pk 09/08/18 Unknown Rx (6-Day Pack, 21 Tabs)] Albuterol Sulfate [Albuterol 0.63% 0.63 mg IH Q4HR PRN #2 ml 12/09/18 Unknown Rx NEBS] Albuterol Sulfate [Proair 90 mcg IH Q4HR PRN #2 aer.pow.ba 12/09/18 Unknown Rx Respiclick] Benzonatate [Tessalon Perles] 100 mg PO Q8HR PRN #30 capsule 12/09/18 Unknown Rx Fluticasone [Flonase] 1 spray NS QDAY #1 bottle 12/09/18 Unknown Rx Ipratropium (Nf) [Atrovent] 2 puff IH Q6HR PRN #1 inha 12/09/18 Unknown Rx Ipratropium [Atrovent NEB] 0.5 mg IH Q4HR #2 ml 12/09/18 Unknown Rx Albuterol INH(or & Nicu Only) 2 puff IH QID PRN #8.5 gram 01/28/19 Unknown Rx [ProAir HFA Inhaler] Azithromycin [Zithromax Z-MARKEL] 0 mg PO DAILY #6 tab 01/28/19 Unknown Rx Benzonatate [Tessalon Perles] 100 mg PO Q8HR #30 capsule 01/28/19 Unknown Rx Prednisone [predniSONE 10 mg 10 mg PO .TAPER #1 tab.ds.pk 01/28/19 Unknown Rx (6-Day Pack, 21 Tabs)] ED Physical Exam - General Limitations: No Limitations General appearance: alert, in no apparent distress - Head Head exam: Present: atraumatic, normocephalic, normal inspection - Eye Eye exam: Present: normal appearance - ENT ENT exam: Present: normal exam, normal orophraynx, mucous membranes moist - Neck Neck exam: Present: normal inspection, full ROM. Absent: tenderness, meningismus - Respiratory Respiratory exam: Present: normal lung sounds bilaterally, wheezes (Mild wheezing). Absent: respiratory distress, rales, rhonchi, accessory muscle use, decreased breath sounds, prolonged expiratory - Cardiovascular Cardiovascular Exam: Present: regular rate, normal rhythm, normal heart sounds - GI/Abdominal GI/Abdominal exam: Present: soft, normal bowel sounds. Absent: distended, tenderness, guarding, rebound, rigid, organomegaly, mass, bruit, pulsatile mass, hernia - Extremities Exam Extremities exam: Present: normal inspection, full ROM, normal capillary refill. Absent: pedal edema, calf tenderness - Back Exam Back exam: Present: normal inspection, full ROM. Absent: CVA tenderness (R), CVA tenderness (L), muscle spasm, paraspinal tenderness, vertebral tenderness - Neurological Exam Neurological exam: Present: alert, oriented X3, CN II-XII intact, normal gait - Psychiatric Psychiatric exam: Present: depressed, suicidal ideation. Absent: homicidal ideation - Skin Skin exam: Present: warm, intact, normal color ED Course Vital Signs 09/12/19 09/12/19 13:47 19:03 Temperature 98.4 F 97.8 F Pulse Rate 94 H 50 L Respiratory 18 15 Rate Blood Pressure 91/57 121/65 [Right] O2 Sat by Pulse 93 95 Oximetry ED Medical Decision Making - Lab Data Result diagrams: 09/12/19 16:42 09/12/19 16:42 - Radiology Data Radiology results: report reviewed - Medical Decision Making Patient is 64-year-old female with history of schizophrenia, bipolar disorder and COPD, on oxygen at home. Patient presented to the ER stating that she is suicidal. Patient stated that she is hearing voices asking her to kill herself. Patient stated that she had previous attempt with medication overdose. Patient stated that she is depressed because she has been kept alone in her home by her daughter and she is afraid that something is what happened to her. Patient denied any fever or chills. No nausea or vomiting. Patient stated that she is having her regular shortness of breath secondary to her COPD. Patient denied any chest pain, nausea or vomiting. Labs reviewed and is unremarkable. Chest x-ray is negative for acute finding. Patient has been evaluated by our psychiatric team and patient will be admitted to our geriatric psych. Critical care attestation.: If time is entered above; I have spent that time in minutes in the direct care of this critically ill patient, excluding procedure time. ED Disposition Clinical Impression: Suicidal ideation Disposition: DC-01 TO HOME OR SELFCARE Is pt being admited?: No Condition: Stable Referrals: PRIMARY CARE, [Primary Care Provider] - 3-5 Days
[2019-09-12 17:04] LABS: Basophils % (Auto) 0.7 % (0.0-1.8); Eosinophils % (Auto) 0.2 % (0.0-4.3); Hematocrit 40.1 % (30.3-42.9); Hemoglobin 13.6 gm/dl (10.1-14.3); Lymphocytes % (Auto) 18.3 % (13.4-35.0); Mean Corpuscular HGB Conc 34 % (30-34); Mean Corpuscular Volume 96 fl (79-97); Monocytes % (Auto) 5.5 % (0.0-7.3); Platelet Count 227 K/mm3 (140-440); Red Blood Count 4.18 M/mm3 (3.65-5.03); Red Cell Distribution Width 12.7 % (13.2-15.2)
[2019-09-12 17:10] LABS: Lymphocytes # (Auto) 1.4 K/mm3 (1.2-5.4); Monocytes # (Auto) 0.4 K/mm3 (0.0-0.8)
[2019-09-12 17:19] LABS: Alanine Aminotransferase 8 units/L (7-56); Albumin 4.3 g/dL (3.9-5); BUN/Creatinine Ratio 14; Blood Urea Nitrogen 13 mg/dL (7-17); Hemolysis Index 14
--- NOTE | 2019-09-12 17:22 | XRay Report ---
CHEST 1 VIEW 09/12/2019 4:14 PM INDICATION / CLINICAL INFORMATION: chest pain. COMPARISON: 01/28/2019 FINDINGS: SUPPORT DEVICES: None. HEART / MEDIASTINUM: Normal heart size. Atherosclerosis in the thoracic aorta. LUNGS / PLEURA: No significant pulmonary or pleural abnormality. No pneumothorax. ADDITIONAL FINDINGS: No significant additional findings. IMPRESSION: 1. No acute findings. Signer Name: Rhett Castro MD Signed: 09/12/2019 5:17 PM Workstation Name: [id number]
[2019-09-12 17:30] LABS: INR 0.99 (0.87-1.13); Partial Thromboplastin Time 23.5 Sec. (24.2-36.6)
[2019-09-12 19:09] VITALS: BP 121/65
== END 2019-09-12 21:14 | disposition home or self-care (01) ==
LOC: ED 13:02
DX: R45.851 Suicidal ideations (principal); F32.9 Major depressive disorder, single episode, unspecified; I10 Essential (primary) hypertension; R56.9 Unspecified convulsions; J44.9 Chronic obstructive pulmonary disease, unspecified; F17.200 Nicotine dependence, unspecified, uncomplicated; Z90.49 Acquired absence of other specified parts of digestive tract; Z79.899 Other long term (current) drug therapy; Z88.8 Allergy status to other drugs, medicaments and biological substances
CPT/HCPCS: 36415; 71045; 80053; 80320; 83880; 85025; 85610; 85730; G0480

== ENCOUNTER 2019-11-08 12:00 | Emergency (ER) | payer MEDICARE ==
--- NOTE | 2019-11-08 13:57 | Emergency Department Report ---
ED Psych HPI - General Chief Complaint: Psych Stated Complaint: SUICIDAL THOUGHTS Time Seen by Provider: 11/08/19 13:45 Source: patient Mode of arrival: Ambulatory - History of Present Illness Initial Comments: Patient is 64-year-old female with history of schizophrenia, bipolar disorder, COPD, hypertension and seizure. Patient presented to the ER via EMS from home for evaluation of suicidal ideation and hearing voices also. Patient stated that she feels depressed and she just wanted to kill herself by overdosing on medication. Patient denied overdosing on medication. Patient stated that she is hearing voices telling her they want to kill her. Patient denies any chest pain, fever or chills. When asked about the shortness of breath stated that this is her baseline. Patient is on 2 L of oxygen at home. MD Complaint: suicidal ideation, feels depressed - Related Data Home Medications Medication Instructions Recorded Confirmed Last Taken levETIRAcetam [Keppra TAB] 1,000 mg PO QDAY 09/02/18 11/10/19 Unknown Albuterol Sulfate 90 mcg PO Q6HR PRN 11/10/19 11/10/19 Unknown Fluticasone Propionate 50 mcg INTRANASAL DAILY 11/10/19 11/10/19 Unknown Previous Rx's Medication Instructions Recorded Last Taken Type Venlafaxine Xr [Effexor XR] 150 mg PO QDAY #30 capsule 09/19/19 Unknown Rx hydrOXYzine PAMOATE [Vistaril] 25 mg PO DAILY PRN capsule 09/19/19 Unknown Rx lamoTRIgine [LaMICtal] 25 mg PO BID tablet 09/19/19 Unknown Rx risperiDONE [RisperDAL] 3 mg PO BID #90 tablet 09/19/19 Unknown Rx traZODone [Desyrel] 50 mg PO QHS PRN #30 tablet 09/19/19 Unknown Rx Allergies Allergy/AdvReac Type Severity Reaction Status Date / Time benztropine [From Cogentin] Allergy Unknown Verified 09/12/19 13:06 bupropion [From Wellbutrin] Allergy Unknown Verified 09/12/19 13:06 epinephrine Allergy Unknown Verified 01/28/18 11:04 haloperidol [From Haldol] Allergy Unknown Verified 01/28/18 11:04 quetiapine [From Seroquel] Allergy Unknown Verified 01/28/18 11:04 terbinafine [From Lamisil] Allergy Unknown Verified 09/12/19 13:06 ziprasidone [From Geodon] Allergy Unknown Verified 01/28/18 11:04 ED Review of Systems ROS: Stated complaint: SUICIDAL THOUGHTS Other details as noted in HPI Comment: All other systems reviewed and negative Constitutional: denies: chills, fever Respiratory: shortness of breath. denies: cough, SOB with exertion, SOB at rest, wheezing Cardiovascular: denies: chest pain, palpitations Gastrointestinal: denies: abdominal pain, nausea, vomiting, diarrhea, constipation, hematemesis, melena, hematochezia Musculoskeletal: denies: back pain Neurological: denies: headache, weakness, numbness, paresthesias, confusion Psychiatric: depression, auditory hallucinations, suicidal thoughts. denies: visual hallucinations, homicidal thoughts ED Past Medical Hx - Past Medical History Previous Medical History?: Yes Hx Hypertension: Yes Hx Seizures: Yes Hx Psychiatric Treatment: Yes (Schizophrenia, depression, bipolar) Hx COPD: Yes (home O2 3.5 L) Additional medical history: brain tumor?? - Surgical History Past Surgical History?: Yes Hx Cholecystectomy: Yes - Social History Smoking Status: Current Some Day Smoker Substance Use Type: None - Medications Home Medications: Home Medications Medication Instructions Recorded Confirmed Last Taken Type levETIRAcetam [Keppra TAB] 1,000 mg PO QDAY 09/02/18 11/10/19 Unknown History Venlafaxine Xr [Effexor XR] 150 mg PO QDAY #30 capsule 09/19/19 11/10/19 Unknown Rx hydrOXYzine PAMOATE [Vistaril] 25 mg PO DAILY PRN capsule 09/19/19 11/10/19 Unknown Rx lamoTRIgine [LaMICtal] 25 mg PO BID tablet 09/19/19 11/10/19 Unknown Rx risperiDONE [RisperDAL] 3 mg PO BID #90 tablet 09/19/19 11/09/19 Unknown Rx traZODone [Desyrel] 50 mg PO QHS PRN #30 tablet 09/19/19 11/09/19 Unknown Rx Albuterol Sulfate 90 mcg PO Q6HR PRN 11/10/19 11/10/19 Unknown History Fluticasone Propionate 50 mcg INTRANASAL DAILY 11/10/19 11/10/19 Unknown History ED Physical Exam - General Limitations: No Limitations General appearance: alert, in no apparent distress - Head Head exam: Present: atraumatic, normal inspection - Eye Eye exam: Present: normal appearance - ENT ENT exam: Present: normal exam, normal orophraynx, mucous membranes moist - Neck Neck exam: Present: normal inspection, full ROM. Absent: tenderness, meningismus, lymphadenopathy, thyromegaly - Respiratory Respiratory exam: Present: normal lung sounds bilaterally - Cardiovascular Cardiovascular Exam: Present: regular rate, normal rhythm, normal heart sounds - GI/Abdominal GI/Abdominal exam: Present: soft, normal bowel sounds. Absent: distended, tenderness, guarding, rebound, rigid, organomegaly, mass, bruit, pulsatile mass, hernia - Extremities Exam Extremities exam: Present: normal inspection, full ROM, normal capillary refill. Absent: pedal edema, calf tenderness - Back Exam Back exam: Present: normal inspection, full ROM. Absent: CVA tenderness (R), CVA tenderness (L) - Neurological Exam Neurological exam: Present: alert, oriented X3, CN II-XII intact, normal gait, reflexes normal - Psychiatric Psychiatric exam: Present: depressed, suicidal ideation. Absent: agitated, anxious, flat affect, manic, homicidal ideation - Skin Skin exam: Present: warm, intact, normal color ED Course Vital Signs 11/08/19 11/08/19 11/08/19 13:38 18:08 19:41 Temperature 98.7 F 97.7 F Pulse Rate 90 73 Pulse Rate [ Posterior Bilateral Throughout] Respiratory 18 18 18 Rate Respiratory Rate [Posterior Bilateral Throughout] Blood Pressure 118/74 Blood Pressure 129/68 [Right] O2 Sat by Pulse 86 93 Oximetry 11/08/19 11/09/19 11/09/19 21:41 01:41 08:00 Temperature 97.9 F Pulse Rate 74 Pulse Rate [ Posterior Bilateral Throughout] Respiratory 18 18 Rate Respiratory Rate [Posterior Bilateral Throughout] Blood Pressure Blood Pressure 120/60 [Right] O2 Sat by Pulse 95 98 Oximetry 11/09/19 11/09/19 11/09/19 10:00 10:10 20:18 Temperature 98.3 F 97.8 F Pulse Rate 88 72 Pulse Rate [ 86 Posterior Bilateral Throughout] Respiratory 17 14 Rate Respiratory 20 Rate [Posterior Bilateral Throughout] Blood Pressure 107/61 Blood Pressure 121/69 [Right] O2 Sat by Pulse 95 Oximetry 11/09/19 20:30 Temperature Pulse Rate Pulse Rate [ 77 Posterior Bilateral Throughout] Respiratory Rate Respiratory Rate [Posterior Bilateral Throughout] Blood Pressure Blood Pressure [Right] O2 Sat by Pulse Oximetry ED Medical Decision Making - Lab Data Result diagrams: 11/08/19 13:57 11/08/19 13:57 Critical care attestation.: If time is entered above; I have spent that time in minutes in the direct care of this critically ill patient, excluding procedure time. ED Disposition Clinical Impression: Suicidal ideation Disposition: DC/TX-65 PSY HOSP/PSY UNIT Is pt being admited?: No Condition: Stable Referrals: PRIMARY CARE, [Primary Care Provider] - 3-5 Days
[2019-11-08 14:16] LABS: Basophils % (Auto) 0.2 % (0.0-1.8); Eosinophils % (Auto) 0.5 % (0.0-4.3); Hematocrit 37.4 % (30.3-42.9); Hemoglobin 12.7 gm/dl (10.1-14.3); Lymphocytes # (Auto) 0.6 K/mm3 (1.2-5.4); Lymphocytes % (Auto) 9.4 % (13.4-35.0); Mean Corpuscular HGB Conc 34 % (30-34); Mean Corpuscular Volume 96 fl (79-97); Monocytes # (Auto) 0.2 K/mm3 (0.0-0.8); Monocytes % (Auto) 3.9 % (0.0-7.3); Platelet Count 225 K/mm3 (140-440); Red Blood Count 3.91 M/mm3 (3.65-5.03); Red Cell Distribution Width 13.1 % (13.2-15.2)
[2019-11-08 14:37] LABS: Calcium 9.6 mg/dL (8.4-10.2)
[2019-11-08 17:00] LABS: Bilirubin,Urine NEG (Negative); Blood,Urine NEG (Negative); Color,Urine Straw (Yellow); Protein,Urine <15 mg/dL mg/dL (Negative); Urobilinogen,Urine < 2.0 mg/dL (<2.0)
[2019-11-08 17:10] LABS: Amphetamine Screen,Urine PRESUMPTIVE NEGATIVE; Benzodiazepines Screen,Urine PRESUMPTIVE NEGATIVE; Cannabinoid Screen,Urine PRESUMPTIVE NEGATIVE; Cocaine Screen,Urine PRESUMPTIVE NEGATIVE; Methadone Screen,Urine PRESUMPTIVE NEGATIVE; Opiate Screen,Urine PRESUMPTIVE NEGATIVE
[2019-11-09] MEDS ORDERED: cloNIDine 0.1 MG TAB PO PRN (01:51)
[2019-11-09] MEDS ORDERED: BENZONATATE 100 MG CAP PO PRN (01:51)
[2019-11-09] MEDS ORDERED: hydrOXYzine PAMOATE 25 MG CAP PO PRN (01:51)
[2019-11-09] MEDS ORDERED: ALBUTEROL 2.5 MG/3 ML NEBU IH PRN (01:58)
[2019-11-09] MEDS ORDERED: traZODone 50 MG TAB PO ONE ×2 (03:46→03:49)
[2019-11-09] MEDS: ALBUTEROL 2.5 MG/3 ML NEBU IH SCH ×2 (10:00→13:16)
[2019-11-09] MEDS ORDERED: ALBUTEROL 8.5 GM MDI INHALATION IH SCH (10:00)
[2019-11-09] MEDS ORDERED: levETIRAcetam 500 MG TAB PO SCH (10:00)
[2019-11-09] MEDS ORDERED: lamoTRIgine 25 MG TAB PO SCH (10:00)
[2019-11-09] MEDS ORDERED: FLUTICASONE PROPIONATE NASAL SPRAY 16 GM NS SCH (10:00)
[2019-11-09] MEDS: BUDESONIDE 0.5 MG/2 ML NEBU IH SCH ×3 (10:10→20:32)
--- NOTE | 2019-11-09 12:23 | Consultation ---
History of Present Illness - Reason for Consult Consult date: 11/09/19 Reason for consult: SI - History of Present Psychiatric Illness Sherri Iniguez is a 64y/o female patient who is known to me from previous visits. She presented to the ER with suicidal thoughts and hearing voices. During my interview with the patient today, she is lying in bed awake. She is a/o x 3. Her appears delusional. She says she was "having suicidal thoughts and couldn't breath when I came in." She says, "I still feel suicidal." She says she plans to "overdose." The patient says "I'm depressed." She then says, "where I live they keep moving things around." The patient also says she sees "visions that show me how they are going to kill me." The patient says she "sometimes have trouble sle eping." She says her appetite is good. The patient starts pointing to each biceps with her arms flexed and states, "I have a mid line there, do you see it?" PAST PSYCHIATRIC HISTORY Diagnoses: MDD, schizophrenia, bipolar Suicide attempts or Self-harm behavior: Overdose on own medications Prior psychiatric hospitalizations: Yes Substance Abuse history: Alcohol Previous psychiatric medications tried: risperidone, and trazodone. Outpatient treatment: Yes PAST MEDICAL HISTORY: CVA, CAD, COPD Family Psychiatric History: None reported or documented SOCIAL HISTORY Marital Status: Living Arrangements: Lives with daughter Employment Status: On disability Access to guns/weapons: None reported Education: GED History of Abuse: Denies Legal History: None reported REVIEW OF SYSTEMS Constitutional: Negative for weight loss ENT: Negative for stridor Respiratory: Cough All other systems reviewed and are negative, except respirator MENTAL STATUS EXAMINATION General Appearance: Dressed appropriately Behavior: Calm and cooperative. Fair eye contact. Mood: "depressed" Affect and affective range: Congruent with stated mood Speech: Normal tone and pace Thought Process: Goal directed Thought content: Suicidal Ideation: Yes Homicidal Ideation: Denies Hallucination: Auditory Delusions: Yes Insight/Judgment: Limited Memory/Cognition: Limited ASSESSMENT (1) Schizoaffective disorder PLAN Start Risperidone 0.25mg po BID Start Trazodone 50mg po qhs Sitter: Defer to primary Medical: Per primary Disposition: Recommend acute inpatient psychiatric treatment Will follow. Thank you for this consult. Medications and Allergies Allergies Allergy/AdvReac Type Severity Reaction Status Date / Time benztropine [From Cogentin] Allergy Unknown Verified 09/12/19 13:06 bupropion [From Wellbutrin] Allergy Unknown Verified 09/12/19 13:06 epinephrine Allergy Unknown Verified 01/28/18 11:04 haloperidol [From Haldol] Allergy Unknown Verified 01/28/18 11:04 quetiapine [From Seroquel] Allergy Unknown Verified 01/28/18 11:04 terbinafine [From Lamisil] Allergy Unknown Verified 09/12/19 13:06 ziprasidone [From Geodon] Allergy Unknown Verified 01/28/18 11:04 Home Medications Medication Instructions Recorded Confirmed Last Taken Type levETIRAcetam [Keppra TAB] 1,000 mg PO QDAY 09/02/18 11/09/19 Unknown History Venlafaxine Xr [Effexor XR] 150 mg PO QDAY #30 capsule 09/19/19 11/09/19 Unknown Rx hydrOXYzine PAMOATE [Vistaril] 25 mg PO DAILY PRN capsule 09/19/19 11/09/19 Unknown Rx lamoTRIgine [LaMICtal] 25 mg PO BID tablet 09/19/19 11/09/19 Unknown Rx risperiDONE [RisperDAL] 3 mg PO BID #90 tablet 09/19/19 11/09/19 Unknown Rx traZODone [Desyrel] 50 mg PO QHS PRN #30 tablet 09/19/19 11/09/19 Unknown Rx Active Meds: Active Medications Albuterol (Proventil) 2.5 mg IH QIDRT [facility] Last Admin: 11/09/19 10:00 Dose: 2.5 mg Documented by: Albuterol (Proventil) 2.5 mg IH Q4HRT PRN PRN Reason: Shortness Of Breath Benzonatate (Tessalon Perles) 100 mg PO Q8HR PRN PRN Reason: Cough Budesonide (Pulmicort) 0.5 mg IH Q12HRT [facility] Last Admin: 11/09/19 10:10 Dose: 0.5 mg Documented by: Clonidine HCl (Catapres) 0.1 mg PO Q8H PRN PRN Reason: Blood Pressure Fluticasone Propionate (Flonase) 50 mcg NS QDAY [facility] Last Admin: 11/09/19 12:09 Dose: 50 mcg Documented by: Hydroxyzine Pamoate (Vistaril) 25 mg PO DAILY PRN PRN Reason: Anxiety Lamotrigine (Lamictal) 25 mg PO BID [facility] Last Admin: 11/09/19 11:19 Dose: 25 mg Documented by: Levetiracetam (Keppra) 1,000 mg PO QDAY [facility] Last Admin: 11/09/19 11:19 Dose: 1,000 mg Documented by: Mental Status Exam - Vital signs Last Vital Signs Temp 98.3 F 11/09/19 10:10 Pulse 88 11/09/19 10:10 Resp 17 11/09/19 10:10 BP 121/69 11/09/19 10:10 Pulse Ox 95 11/09/19 01:41 Results Result Diagrams: 11/08/19 13:57 11/08/19 13:57 Abnormal lab results 11/08/19 11/08/19 11/08/19 Range/Units 13:57 13:57 13:57 RDW 13.1 L (13.2-15.2) % Lymph % (Auto) 9.4 L (13.4-35.0) % Lymph # 0.6 L (1.2-5.4) K/mm3 Seg Neutrophils % 86.0 H (40.0-70.0) % Glucose 141 H (65-100) mg/dL Salicylates < 0.3 L (2.8-20.0) mg/dL Acetaminophen (10.0-30.0) ug/mL 11/08/19 Range/Units 13:57 RDW (13.2-15.2) % Lymph % (Auto) (13.4-35.0) % Lymph # (1.2-5.4) K/mm3 Seg Neutrophils % (40.0-70.0) % Glucose (65-100) mg/dL Salicylates (2.8-20.0) mg/dL Acetaminophen 5.0 L (10.0-30.0) ug/mL All other labs normal.
[2019-11-09] MEDS ORDERED: risperiDONE 0.25 MG TAB PO SCH (13:00)
[2019-11-09] MEDS ORDERED: ALBUTEROL 8.5 GM MDI INHALATION IH PRN (13:12)
[2019-11-09 20:28] VITALS: BP 107/61
[2019-11-09] MEDS ORDERED: traZODone 50 MG TAB PO SCH (22:00)
== END 2019-11-09 21:45 ==
LOC: ED 12:00
DX: R45.851 Suicidal ideations (principal); F32.9 Major depressive disorder, single episode, unspecified; I10 Essential (primary) hypertension; R56.9 Unspecified convulsions; J44.9 Chronic obstructive pulmonary disease, unspecified; F17.200 Nicotine dependence, unspecified, uncomplicated; Z90.49 Acquired absence of other specified parts of digestive tract; Z79.899 Other long term (current) drug therapy; Z88.8 Allergy status to other drugs, medicaments and biological substances
CPT/HCPCS: 36415; 80048; 80307; 81001; 85025; 99284; U0003; 80320; 94644; G0480

== ENCOUNTER 2019-12-08 16:20 | Emergency (ER) | payer MEDICARE ==
[2019-12-08 21:32] VITALS: BP 90/63
--- NOTE | 2019-12-08 21:34 | Emergency Department Report ---
Chief Complaint: Extremity Problem,Nontraumatic Stated Complaint: DIZZY Time Seen by Provider: 12/08/19 20:06 - HPI History of Present Illness: Ms Iniguez is 64-year-old female with history of schizophrenia, bipolar disorder, COPD, hypertension and seizure. Patient presented to the ER via EMS from home stating that she does not like her transition social worker and does not want her transition social worker anymore. Patient states that she is having bilateral feet pain from walking. Patient is doing really clear and keeps stating that she wants a new sub acute care nurse. She denies SI/HI at this time.Patient denies any chest pain, fever or chills. Patient is on 2 L of oxygen at home. - ROS Review of Systems: As noted in HPI - Exam Physical Exam: GENERAL: Alert and oriented x3, no apparent distress, Normal Gait, atraumatic. HEAD: Head is normocephalic and a-traumatic. LUNGS: Symetrical with respiration, No wheezing, no rales or crackles, CTAB. HEART: S1, S2 present, regular rate and rhythm without murmur, no rubs, no gallops. Non tender to palpation EXTREMITIES/MUSCULOSKELETAL: No cyanosis, clubbing, rash, lesions or edema. Full ROM bilaterally. UE/LE Pulses 2+ bilaterally. LE and UE 5+ strength bilaterall y, straight leg raise negative bilaterally. Rodolfo sign is negative NEUROLOGIC: The patient is cooperative with no focal neurologic deficits. Cranial nerves II through XII are grossly intact. Normal speech. Normal sensation in bilateral upper and lower extremities, No loss of sensation, No facial droop, Negative rhomberg. PSYCHIATRIC: Mood is congruent with affect, denies suicidal or homicidal ideations. SKIN: Warm and dry, No lesions, No ulceration or induration present. MSE screening note: Focused history and physical exam performed. Due to findings the following was ordered: ED Medical Decision Making - Medical Decision Making 64-year-old female who presented with bilateral feet pain. Upon examination shows no signs of injury or any wound. Patient stating she would like to get some snacks and some food. Patient had no acute or respiratory distress throughout ED stay. She was sitting comfortably in the ED chair. I discussed the patient that she may take Motrin as needed for foot pain. Patient is neurologically stable. She is in no acute distress throughout the whole ED stay. Discussed with patient to continue to take her medications as she has been prescribed. Follow-up with her doctors. I did discuss with patient if she has any worsening symptoms or new onset of symptoms she may return to the ED immediately. ED Disposition for MSE Disposition: DC-01 TO HOME OR SELFCARE Is pt being admited?: No Does the pt Need Aspirin: No Condition: Stable Instructions: Analgesic (On the skin), Arthralgia (ED) Additional Instructions: Make sure to follow up with the primary care physician as discussed. If you have any worsening symptoms or develop new symptoms please return to ED immediately. Referrals: [facility] [Outside] - 3-5 Days [facility] [Outside] - 3-5 Days [facility] [Outside] - 3-5 Days Time of Disposition: 21:50
== END 2019-12-08 22:00 | disposition home or self-care (01) ==
LOC: ED 16:20
DX: M79.671 Pain in right foot (principal); M79.672 Pain in left foot; R22.43 Localized swelling, mass and lump, lower limb, bilateral; Z88.8 Allergy status to other drugs, medicaments and biological substances
CPT/HCPCS: 99283

== ENCOUNTER 2020-06-15 10:45 | Emergency (ER) | payer MEDICARE ==
--- NOTE | 2020-06-15 12:27 | XRay Report ---
CHEST 1 VIEW 06/15/2020 11:55 AM INDICATION / CLINICAL INFORMATION: SOB. COMPARISON: 09/12/2019 FINDINGS: SUPPORT DEVICES: None. HEART / MEDIASTINUM: No significant abnormality. LUNGS / PLEURA: Mild underlying COPD remains. No acute abnormality. No pneumothorax. ADDITIONAL FINDINGS: No significant additional findings. IMPRESSION: Stable chest. Signer Name: Mario Rajan MD Signed: 06/15/2020 12:22 PM Workstation Name: [id number]
--- NOTE | 2020-06-15 12:51 | Emergency Department Report ---
ED Shortness of Breath HPI - General Chief Complaint: Dyspnea/Respdistress Stated Complaint: GILSON Time Seen by Provider: 06/15/20 11:32 Source: patient Mode of arrival: Stretcher Limitations: No Limitations - History of Present Illness Initial Comments: 65-year-old female, history of COPD (chronically on 3 L O2), bipolar disorder, schizophrenia, presents to ED with shortness of breath x1 week. Patient denies any chest pain, cough, fever, lower extremity swelling. Patient brought in by EMS. She was given Solu-Medrol and nebulizer treatment prior to arrival. Patient states she is feeling much better following the breathing treatment. She is requesting a cup of coffee or a Coca-Cola and something to eat. MD Complaint: shortness of breath -: week(s) (1) Severity: moderate Consistency: intermittent Improves With: oxygen Worsens With: exertion Known History Of: COPD Treatments Prior to Arrival: bronchodilator - Related Data Home Oxygen Therapy: Yes Home Oxygen Amount: 3 Liters Home Medications Medication Instructions Recorded Confirmed Last Taken levETIRAcetam [Keppra TAB] 1,000 mg PO QDAY 09/02/18 11/10/19 Unknown Albuterol Sulfate 90 mcg PO Q6HR PRN 11/10/19 11/10/19 Unknown Fluticasone Propionate 50 mcg INTRANASAL DAILY 11/10/19 11/10/19 Unknown Previous Rx's Medication Instructions Recorded Last Taken Type hydrOXYzine PAMOATE [Vistaril] 25 mg PO DAILY PRN capsule 09/19/19 Unknown Rx lamoTRIgine [LaMICtal] 25 mg PO BID tablet 09/19/19 Unknown Rx risperiDONE [RisperDAL] 3 mg PO BID #90 tablet 09/19/19 Unknown Rx traZODone [Desyrel] 50 mg PO QHS PRN #30 tablet 09/19/19 Unknown Rx ALBUTEROL NEB's [Proventil 0.083% 2.5 mg IH Q4HRT PRN nebu 11/17/19 Unknown Rx NEBS] AtorvaSTATin 10 mg PO QHS tablet 11/17/19 Unknown Rx Venlafaxine Xr [Effexor XR] 225 mg PO QDAY #30 capsule 11/17/19 Unknown Rx Albuterol Sulfate [Proventil Hfa] 2 puff IH Q4HR PRN #1 hfa.aer.ad 06/15/20 Unknown Rx predniSONE [Deltasone] 50 mg PO QDAY #5 tab 06/15/20 Unknown Rx Allergies Allergy/AdvReac Type Severity Reaction Status Date / Time benztropine [From Cogentin] Allergy Unknown Verified 09/12/19 13:06 bupropion [From Wellbutrin] Allergy Unknown Verified 09/12/19 13:06 epinephrine Allergy Unknown Verified 01/28/18 11:04 haloperidol [From Haldol] Allergy Unknown Verified 01/28/18 11:04 quetiapine [From Seroquel] Allergy Unknown Verified 01/28/18 11:04 terbinafine [From Lamisil] Allergy Unknown Verified 09/12/19 13:06 ziprasidone [From Geodon] Allergy Unknown Verified 01/28/18 11:04 ED Review of Systems ROS: Stated complaint: GILSON Other details as noted in HPI Comment: All other systems reviewed and negative Constitutional: denies: chills, fever Respiratory: SOB with exertion. denies: cough Cardiovascular: denies: chest pain Gastrointestinal: denies: nausea, vomiting Musculoskeletal: other (Denies leg pain and swelling) ED Past Medical Hx - Past Medical History Hx Hypertension: Yes Hx Renal Disease: No Hx Arthritis: No Hx Seizures: Yes Hx Psychiatric Treatment: Yes (Schizophrenia, depression, bipolar) Hx COPD: Yes (home O2 3.5 L) Hx Dementia: No Additional medical history: brain tumor?? - Surgical History Hx Cholecystectomy: Yes Hx Appendectomy: No - Social History Smoking Status: Current Every Day Smoker Substance Use Type: None - Medications Home Medications: Home Medications Medication Instructions Recorded Confirmed Last Taken Type levETIRAcetam [Keppra TAB] 1,000 mg PO QDAY 09/02/18 11/10/19 Unknown History hydrOXYzine PAMOATE [Vistaril] 25 mg PO DAILY PRN capsule 09/19/19 11/10/19 Unknown Rx lamoTRIgine [LaMICtal] 25 mg PO BID tablet 09/19/19 11/10/19 Unknown Rx risperiDONE [RisperDAL] 3 mg PO BID #90 tablet 09/19/19 11/09/19 Unknown Rx traZODone [Desyrel] 50 mg PO QHS PRN #30 tablet 09/19/19 11/09/19 Unknown Rx Albuterol Sulfate 90 mcg PO Q6HR PRN 11/10/19 11/10/19 Unknown History Fluticasone Propionate 50 mcg INTRANASAL DAILY 11/10/19 11/10/19 Unknown History ALBUTEROL NEB's [Proventil 0.083% 2.5 mg IH Q4HRT PRN nebu 11/17/19 Unknown Rx NEBS] AtorvaSTATin 10 mg PO QHS tablet 11/17/19 Unknown Rx Venlafaxine Xr [Effexor XR] 225 mg PO QDAY #30 capsule 11/17/19 Unknown Rx Albuterol Sulfate [Proventil Hfa] 2 puff IH Q4HR PRN #1 hfa.aer.ad 06/15/20 Unknown Rx predniSONE [Deltasone] 50 mg PO QDAY #5 tab 06/15/20 Unknown Rx ED Physical Exam - General Limitations: No Limitations General appearance: alert, in no apparent distress - Head Head exam: Present: atraumatic, normocephalic - Eye Eye exam: Present: normal appearance, EOMI - ENT ENT exam: Present: mucous membranes moist - Neck Neck exam: Present: normal inspection - Respiratory Respiratory exam: Present: normal lung sounds bilaterally. Absent: respiratory distress - Cardiovascular Cardiovascular Exam: Present: normal rhythm, tachycardia - GI/Abdominal GI/Abdominal exam: Absent: distended - Extremities Exam Extremities exam: Present: normal inspection. Absent: pedal edema, calf tenderness - Neurological Exam Neurological exam: Present: alert, oriented X3 - Psychiatric Psychiatric exam: Present: normal affect, normal mood - Skin Skin exam: Present: warm, dry, intact, normal color ED Course Vital Signs 06/15/20 06/15/20 06/15/20 11:18 11:26 11:30 Temperature 98 F Pulse Rate 113 H 114 H 124 H Respiratory 27 H 24 20 Rate Blood Pressure 117/69 137/72 O2 Sat by Pulse 92 86 Oximetry 06/15/20 06/15/20 06/15/20 11:46 12:00 12:16 Temperature Pulse Rate 119 H 103 H 93 H Respiratory 37 H 30 H 15 Rate Blood Pressure 113/70 104/49 112/68 O2 Sat by Pulse 92 96 Oximetry 06/15/20 12:30 Temperature Pulse Rate 89 Respiratory 19 Rate Blood Pressure 112/68 O2 Sat by Pulse 70 L Oximetry ED Medical Decision Making - Lab Data Result diagrams: 06/15/20 12:11 06/15/20 12:11 - EKG Data -: EKG Interpreted by Me EKG shows normal: sinus rhythm, axis, intervals, QRS complexes, ST-T waves Rate: normal - EKG Data Interpretation: no acute changes - Radiology Data Radiology results: report reviewed, image reviewed - Medical Decision Making 65-year-old female presents to ED with COPD exacerbation. Patient given Solu- Medrol and nebulizer treatment by EMS prior to ED arrival. Lungs are clear. Patient is quite talkative and in no respiratory distress. Her usual 3 L O2, patient's O2 sats are normal. There was a reading that was documented at 70%, however this is not correct and likely recorded after patient had taken off her pulse ox monitor. Chest x-ray is normal, labs are normal. EKG shows no ST changes. Patient will be discharged at this time with prescriptions. Outpatient follow-up advised, return precautions given. - Differential Diagnosis COPD, CHF, pneumonia Critical care attestation.: If time is entered above; I have spent that time in minutes in the direct care of this critically ill patient, excluding procedure time. ED Disposition Clinical Impression: COPD with acute exacerbation Disposition: DC-01 TO HOME OR SELFCARE Is pt being admited?: No Condition: Stable Instructions: Chronic Obstructive Pulmonary Disease, [id number], Chronic Obstructive Pulmonary Disease (ED) Prescriptions: predniSONE [Deltasone] 50 mg PO QDAY #5 tab Albuterol Sulfate [Proventil Hfa] 2 puff IH Q4HR PRN #1 hfa.aer.ad PRN Reason: Wheezing Referrals: PRIMARY CARE, [Primary Care Provider] - 3-5 Days Time of Disposition: 13:55
[2020-06-15 13:16] LABS: Basophils % (Auto) 0.4 % (0.0-1.8); Eosinophils # (Auto) 0.1 K/mm3 (0.0-0.4); Eosinophils % (Auto) 1.1 % (0.0-4.3); Hematocrit 37.4 % (30.3-42.9); Hemoglobin 12.8 gm/dl (10.1-14.3); Lymphocytes # (Auto) 1.1 K/mm3 (1.2-5.4); Lymphocytes % (Auto) 14.7 % (13.4-35.0); Mean Corpuscular HGB Conc 34 % (30-34); Mean Corpuscular Volume 94 fl (79-97); Monocytes # (Auto) 0.5 K/mm3 (0.0-0.8); Monocytes % (Auto) 6.6 % (0.0-7.3); Platelet Count 263 K/mm3 (140-440); Red Blood Count 3.98 M/mm3 (3.65-5.03)
[2020-06-15 13:34] LABS: BUN/Creatinine Ratio 18; Blood Urea Nitrogen 20 mg/dL (7-17); Calcium 9.4 mg/dL (8.4-10.2); Hemolysis Index 9
[2020-06-15 14:46] VITALS: BP 112/68
--- NOTE | 2020-06-16 12:07 | Electrocardiograph Report ---
[facility] Test Date: 2020-06-15 Test Time: 13:49:03 Pat Name: DAPHNE SOLARES Department: Room: Gender: F Arcade Attendant: LINO : 1955 Requested By: ALBINO PACE Order Number: [id number] Reading MD: Callum Schroeder Measurements Intervals [place] Rate: 81 P: 69 DE: 147 QRS: 74 QRSD: 74 T: 62 QT: 379 QTc: 441 Interpretive Statements Sinus rhythm No previous ECG available for comparison Electronically Signed On 06-16-2020 12:07:14 EDT by Callum Schroeder
== END 2020-06-15 18:48 | disposition home or self-care (01) ==
LOC: ED 10:45
DX: J45.901 Unspecified asthma with (acute) exacerbation (principal); I10 Essential (primary) hypertension; G40.909 Epilepsy, unspecified, not intractable, without status epilepticus; F17.200 Nicotine dependence, unspecified, uncomplicated; Z90.49 Acquired absence of other specified parts of digestive tract; Z88.8 Allergy status to other drugs, medicaments and biological substances
CPT/HCPCS: 36415; 71045; 80048; 84484; 85025; 93005; 99283